=== PATIENT | male | born 1955 | race Caucasian/White ===

== ENCOUNTER → 2020-01-13 09:34 | Outpatient (BNVA) | payer MEDICAID, SELFPAY | PROVIDERS: PCP Nurse Practitioner Primary Care; Visit Provider Internal Medicine Gastroenterology | DX: K59.09 Other constipation (principal); K57.30 Diverticulosis of large intestine without perforation or abscess without bleeding; K74.60 Unspecified cirrhosis of liver; Z86.010 Personal history of colon polyps; Z98.890 Other specified postprocedural states | CPT/HCPCS: 99213 ==

== ENCOUNTER 2020-01-19 | Outpatient (REF) | payer MEDICAID, SELFPAY | END 2020-01-19 00:01 | disposition home or self-care (01) | LOC: HO.LAB | PROVIDERS: Visit Provider Internal Medicine | DX: Z13.89 Encounter for screening for other disorder (principal) | CPT/HCPCS: 83520; 84432; 84442; 84445; 86376; 86403; 86780; 86800; 86803; 87389 ==

== ENCOUNTER → 2020-02-01 08:20 | Outpatient (REF) | payer MEDICAID, SELFPAY ==
--- NOTE | 2020-02-01 07:30 | CA_ITS ---
Transthoracic Echocardiogram Patient (Last, First, Middle): Shaggy German M Gender: Male Date of : 1955 Age: 64 Procedure Date: 02/01/2020 Procedure Type: Transthoracic Echocardiogram Location: OP Height: 177.8 cm Weight: 74.84 kg BSA: 1.92 m2 Heart Rate: bpm BP: 128 / 78 mmHg Carbon Cutter: JUDD Referring MD: Waleska Baeza NP Telecom Engineer: Jorge Dumont MD Symptoms: R07.9 CHEST PAIN Study Quality: Good ECG Rhythm: Sinus Conclusions: - Essentially normal study with grade 1 diastolic dysfunction Findings Left Ventricle Normal left ventricular size, thickness, and systolic function. The visually estimated ejection fraction is between 60-65%. Spectral Doppler is indicative of an impaired relaxation filling pattern. E/E prime ratio is <8, consistent with normal filling pressures. Evidence suggests grade I (mild) diastolic dysfunction. Right Ventricle Normal right ventricular cavity size and systolic function. Atria Both atria are normal in size. There is no evidence of interatrial shunt. Aortic Valve Normal aortic valve structure and function. There is no aortic valve stenosis. There is no aortic valve regurgitation. Mitral Valve Normal mitral valve structure and function. There is trace mitral valve regurgitation. There is no mitral valve stenosis. Pulmonic Valve The pulmonic valve was not well visualized. Tricuspid Valve Likely normal tricuspid valve structure and function. There is trace tricuspid valve regurgitation. The right ventricular systolic pressure is normal. The right ventricular systolic pressure is 22 mmHg. Normal right atrial pressure. There is no evidence of pulmonary hypertension. Great Vessels All visible segments of the aorta are normal in size. The pulmonary artery was not well visualized. Venous The inferior vena cava is normal in size and collapses greater than 50% with inspiration. Pericardium/Pleural There is no evidence of pericardial effusion. Prior Study Comparison No prior study available for comparison. Measurements 2D Linear Measurements IVSd: 0.91 0.6-0.9/0.6-1.0 cm LVIDd: 4.89 3.9-5.3/4.2-5.9 cm LVIDd Index: 2.55 2.4-3.2/2.2-3.1 cm/m2 LVIDs: 2.63 2.0-3.6 cm LVPWd: 0.85 0.7-1.1 cm Ao Root: 3.30 2.1-3.5 cm LA Diam: 3.30 2.7-3.8/3.0-4.0 cm LAIDs Index: 1.72 1.5-2.3 cm/m2 LV Mass: 184.93 67-162/88-224 g LV Mass Index: 96.32 43-95/49-115 g/m2 LVOT Diam: 2.20 3.0+(-)1.3 cm Mitral Valve MV Pk E: 0.64 MV PK A: 0.84 MV Decel Time: 257.00 E/A: 0.80 E'Lateral: 11.70 E'Medial: 11.50 E/E' Med: 5.60 E/E' Lat: 5.50 PHT: 75.00 MVA PHT: 2.93 Decel Parke: 2.49 Aortic Valve AoV Pk Joseph: 1.49 AoV Mn Joseph: 0.97 AoV VTI: 0.34 AoV Pk Grad: 9.00 Aov Mn Grad: 5.00 ELISE Cont.VTI: 2.49 LVOT LVOT Pk Joseph: 1.08 LVOT Mn Joseph: 0.68 LVOT VTI: 0.22 LVOT Pk Grad: 5.00 LVOT Mn Grad: 2.00 LVOT Diam: 2.20 LVOT Area: 3.80 Diastolic Function MV Pk E: 0.64 MV Pk A: 0.84 E/A: 0.80 E'Medial: 11.50 E/E' Med: 5.60 E' Laterial: 11.70 E/E' Lat: 5.50 Tricuspid Valve TR Pk Joseph: 2.17 TR Pk Grad: 19.00 RA Press: 3.00 RVSP: 22.00 Great Vessels Aorta Ao Root-2D: 3.30 2.0-3.7 cm Ao Asc: 3.30 2.1-3.4 cm Pulmonary Valve PV Pk Joseph: 1.05 Peak PV Grad: 4.00 Updated in Other Vendor System with Status of Final Jorge Dumont MD electronically signed on 02/01/2020 2:46:04 PM with status of Final
--- NOTE | 2020-02-01 08:32 | CA_ITS ---
Acquisition Time: 2020-02-01 09:08:09 Total Exercise Time: 00:09:24 Test Indications: CP Medications: SEE CHART Protocol: CATHERINE Max HR: 146 BPM 93% of Pred: 156 BPM Max BP: 124/062 mmHG Max Work Load: 10.7 METS Exercise stress test using Catherine protocol. Total of 9 min 24 sec. METS 10.7. Tolerated well, denies any anginal sx. EKG without any arrhythmias during exercise or in recovery period. No ischemic changes. Normotensiver esponse to exercise. Test reviewed with Dr. Acosta Referred By: Nonstaff Physician Overread By: Marie Vitale
== END ==
LOC: HO.CARD 08:20
PROVIDERS: Visit Provider Nurse Practitioner Primary Care
DX: R07.9 Chest pain, unspecified (principal)
CPT/HCPCS: 93017; 93306

== ENCOUNTER → 2020-04-26 09:09 | Outpatient (BNVA) | payer MEDICAID, SELFPAY | PROVIDERS: Visit Provider Internal Medicine Gastroenterology ==

== ENCOUNTER 2020-05-08 08:22 | Outpatient (REF) | payer MEDICAID, SELFPAY ==
--- NOTE | 2020-05-08 08:21 | US_ITS ---
EXAMINATION: US ABDOMEN COMPLETE CLINICAL INFORMATION: Cirrhosis of liver. COMPARISON: CT abdomen pelvis 11/30/2019. Ultrasound limited abdomen same date. Ultrasound abdomen 04/02/2018. X-ray KUB 07/17/2017. X-ray abdomen .3 TECHNIQUE: Real-time imaging of the abdominal viscera. FINDINGS: PANCREAS: The head and the body of the pancreas is homogeneous in echotexture. The tail of pancreas obscured by overlying gas. ABDOMINAL AORTA: The proximal, mid, and distal segments are normal in caliber. INFERIOR VENA CAVA: Visualized portions are normal. LIVER: The liver is normal in size. The liver contour is normal. There is diffuse increased liver echogenicity. No focal hepatic lesion. There is no intrahepatic biliary duct dilatation seen. GALLBLADDER: Normal. The gallbladder is physiologically distended without evidence of stones, sludge, polyps, wall thickening or pericholecystic fluid. COMMON BILE DUCT: Normal in caliber measuring 0.4 cm in diameter. RIGHT KIDNEY: Normal. No hydronephrosis. No renal calculi or focal parenchymal lesions. The kidney measures 10.2 cm in maximum dimension. LEFT KIDNEY: Normal. No hydronephrosis. No renal calculi or focal parenchymal lesions. The kidney measures 10.5 cm in maximum dimension. SPLEEN: Normal. The spleen measures 9.1 cm in maximum dimension. FREE FLUID: None. US/US abdomen complete IMPRESSION: Diffuse increased liver echogenicity. No focal lesion seen. Rest of the abdominal ultrasound is unremarkable.
== END 2020-05-08 08:23 | disposition home or self-care (01) ==
LOC: HO.US 08:22
PROVIDERS: PCP Nurse Practitioner Primary Care; Visit Provider Internal Medicine Gastroenterology
DX: K74.60 Unspecified cirrhosis of liver (principal)
CPT/HCPCS: 76700

== ENCOUNTER → 2020-05-28 13:26 | Outpatient (BNVA) | payer MEDICAID, SELFPAY | PROVIDERS: PCP Nurse Practitioner Primary Care; Visit Provider Internal Medicine Gastroenterology ==

== ENCOUNTER → 2020-07-20 15:36 | Outpatient (BNVA) | payer MEDICAID, SELFPAY | PROVIDERS: PCP Nurse Practitioner Primary Care; Visit Provider Internal Medicine Gastroenterology ==

== ENCOUNTER 2020-08-14 10:46 | Day surgery (SDC) | payer OTHER, SELFPAY ==
[2020-07-31 10:18] VITALS: BMI 54.8
--- NOTE | 2020-08-13 10:00 | HO.ANESPROP2 ---
Documented by User: Lakeisha Jacksonney 08/21/20 13:30 HPI - Anesthesia Eval Consult details Narrative: 65yo M for Upper Endoscopy Suboxone daily PMFSH Active Problems Active Problems: All Active Problems (Updated 07/31/20 @ 10:16 by Katelyn Bejarano) Early satiety (Acute) Cirrhosis of liver without ascites (Acute) History of adenomatous polyp of colon (Acute) Chronic constipation (Acute) Past Medical History Medical History (Updated 08/14/20 @ 13:04 by Karmen Khalil RN) Anxiety Chronic constipation Chronic hepatitis C virus genotype 1a infection Cirrhosis of liver without ascites Combined drug dependence excluding opioids Depression History of adenomatous polyp of colon Seizures Family History Family History Father No problems noted. Mother No problems noted. Surgical History Surgical History (Updated 07/31/20 @ 10:16 by Katelyn Bejarano) History of colonoscopy History of hernia repair History of prostate surgery History of pterygium excision Hx of cystoscopy Hx of endoscopy Social History Social History (Updated 07/31/20 @ 10:17 by Katelyn Bejarano) Household Members: None Smoking Status: Current every day smoker Tobacco Type: Cigarette Cigarettes Per Day: 4 Substance Use Type: Former Substance User and Opiates Substance Use Type Other:: currently taking suboxone Advance Directives Information Provided: No Current occupational status: unemployed 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 Meds Allergies Allergy/AdvReac Type Severity Reaction Status Date / Time No Known Allergies Allergy Verified 07/20/20 15:36 Home Medications Medication Instructions Recorded Confirmed Last Taken Type buprenorphine 8 mg-naloxone 2 mg 1 film BUCCAL DAILY 01/12/20 07/31/20 08/14/20 History sublingual film ergocalciferol (vitamin D2) 62.5 62.5 mcg PO DAILY 01/12/20 07/31/20 Unknown History mcg (2,500 unit) capsule sennosides 8.6 mg capsule 8.6 mg PO BEDTIME 01/12/20 07/31/20 Unknown History sertraline 50 mg tablet 50 mg PO DAILY 01/12/20 07/31/20 Unknown History Exam Exam Date and Time: August 13, 2020 1000 Height,Weight and Vital Signs: Height 5 ft 7 in Weight 159 kg Narrative Narrative: 01/2020 Echo and Exercise stress wnl Assessment and Plan Assessment Anesthesia Assessment: Chart Reviewed Documented by User: My Meza 08/22/20 14:12 PMFSH Past Medical History Medical History (Updated 08/14/20 @ 13:04 by Karmen Khalil RN) Anxiety Chronic constipation Chronic hepatitis C virus genotype 1a infection Cirrhosis of liver without ascites Combined drug dependence excluding opioids Depression History of adenomatous polyp of colon Seizures Family History Family History Father No problems noted. Mother No problems noted. Surgical History Surgical History (Updated 07/31/20 @ 10:16 by Katelyn Bejarano) History of colonoscopy History of hernia repair History of prostate surgery History of pterygium excision Hx of cystoscopy Hx of endoscopy Social History Social History (Updated 07/31/20 @ 10:17 by Katelyn Bejarano) Household Members: None Smoking Status: Current every day smoker Tobacco Type: Cigarette Cigarettes Per Day: 4 Substance Use Type: Former Substance User and Opiates Substance Use Type Other:: currently taking suboxone Advance Directives Information Provided: No Current occupational status: unemployed 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 Meds Allergies Allergy/AdvReac Type Severity Reaction Status Date / Time No Known Allergies Allergy Verified 07/20/20 15:36 Home Medications Medication Instructions Recorded Confirmed Last Taken Type buprenorphine 8 mg-naloxone 2 mg 1 film BUCCAL DAILY 01/12/20 07/31/20 08/14/20 History sublingual film ergocalciferol (vitamin D2) 62.5 62.5 mcg PO DAILY 01/12/20 07/31/20 Unknown History mcg (2,500 unit) capsule sennosides 8.6 mg capsule 8.6 mg PO BEDTIME 01/12/20 07/31/20 Unknown History sertraline 50 mg tablet 50 mg PO DAILY 01/12/20 07/31/20 Unknown History Exam Height,Weight and Vital Signs: Vital Signs Temp Pulse Resp BP Pulse Ox 97.5 F 67 17 122/78 97 08/14/20 11:18 08/14/20 11:18 08/14/20 11:18 08/14/20 11:18 08/14/20 11:18 Airway Mallampati Class: II TM Dist: >3cm Heart: RRR Lungs: CTAB Assessment and Plan Assessment Anesthesia Assessment: Anesthesia Plan Discussed and Chart Reviewed Final Anesthetic Review NPO: Yes ASA Class: III Final Preanesthetic Review: No Changes in Pt Med Stat, Meds/Allgs Chart Reviewed, Consent Obtained/Reviewed and Anes Risks/Benef Reviewed Patient Risk: Intermediate Procedure Risk: Low Assessment/Block/Sedation in SS: Assess/Block/Sedation-SS Anesthetic Plan Anesthetic Plan: MAC: Disposition: Standard PACU
[2020-08-14 11:17] VITALS: BMI 25.8
[2020-08-14 11:18] VITALS: BP 122/78; PULSE 67; RESP 17; TEMP 36.4; O2SAT 97
[2020-08-14] MEDS: Lactated Ringers 1,000 ML 100 ML IVCONT (11:30)
--- NOTE | 2020-08-14 12:07 | W.PM.OPN ---
Operative Note Operative Note Date of Service: 08/14/20 Narrative: Pre-op diagnosis: Post prandial abdominal pain and fullness Post-op diagnosis: other (Esophagitis, Gastritis) Procedure: FLEXIBLE TRANSORAL UPPER GASTROINTESTINAL ENDOSCOPY WITH BIOPSIES Consent: Indications for the procedure and potential complications of bleeding, perforation, reaction to medications and missed diagnosis were discussed with the patient and informed consent was obtained. Instrument: Olympus GIF H 190 mid size upper endoscope Monitoring: Vital signs and clinical assessment, continuous EKG monitoring, Pulse oximetry, Carbon Dioxide monitoring and blood pressure monitoring were done throughout the procedure. Procedure: The patient was placed in the left lateral decubitis position and pre-procedure medications were administered and a bite block was placed. The endoscope was inserted into the mouth and advanced under direct vision to the third part of duodenum. A careful inspection was made as the upper endoscope was withdrawn including a retroflexed examination of the proximal stomach; Findings and interventions are described below. Findings: Larynx: Normal Esophagus: GE junction at 40 cms. Focal esophagitis at GE junction with a single 0.5 cms erosion. No Telles's. Stomach: Moderate diffuse gastric erythema. Biopsies were obtained from the gastric body and antrum. Grade 2 flap valve on retroflexed examination of the cardia. Duodenum: Normal bulb and descending duodenum Intervention: Biopsies as noted above Impression and Post Procedure Diagnosis: Endoscopy Findings: ESOPHAGUS: Focal esophagitis STOMACH: Diffuse gastritis Plan: Await pathology results. Pt was advised to take sucralfate 1 gram twice daily in addition to the PPI. Patient has an appointment on 11/15/20 in the [facility] with Essie Larry M.D.-. Above findings were reviewed with the patient and a handout on Gastritis was given in the discharge area Surgeon: Essie Larry MD Anesthesia: MAC (Kristin May CRNA) Was an After School Counselor used for this Procedure?: No After School Counselor: Panchito Choudhary Estimated blood loss (mL): 0 Pathology: other (A- GASTRIC ANTRUM BXS R/O H. PYLORI B- GASTRIC BODY BXS) Condition: stable Disposition: PACU
--- NOTE | 2020-08-14 12:07 | MHC.SHP ---
Pre-Procedural Eval Section A The patient is an INPATIENT: No Changes since office visit: Yes Patient answered all questions; No Cold of Flu in the past 2 weeks, No New Medical Problems and No Changes in Medication The History & Physical has been completed within 30 days and I have reviewed it.: Yes Section B Chief Complaint: Cirrhosis of liver without ascites Allergies: Allergies Allergy/AdvReac Type Severity Reaction Status Date / Time No Known Allergies Allergy Verified 07/20/20 15:36 Review of Systems Sugical H&P ROS: Negative: Constitution, Cardiovascular and Respiratory and Yes, Specify: Gastrointestinal (post prandial abd pain) Exam Surgical H&P Exam: Normal: Heart, Normal: Lungs, Normal: Extremities and Normal: Abdomen Plan Diagnosis/Plan: Unchanged I have reviewed the history and physical and performed a pertinent physical examination on my patient. No changes have occurred unless specified.
[2020-08-14 13:30] VITALS: BP 84/50; PULSE 58; RESP 16; TEMP 36.6; O2SAT 97
[2020-08-14 13:41] VITALS: BP 84/50; PULSE 58; RESP 16; TEMP 36.6; O2SAT 97
[2020-08-14 13:45] VITALS: BP 97/58; PULSE 54; RESP 16; TEMP 36.6; O2SAT 100
[2020-08-14 14:10] VITALS: BP 107/63; PULSE 59; RESP 16; O2SAT 98
== END 2020-08-14 14:33 | disposition home or self-care (01) ==
PROVIDERS: PCP Nurse Practitioner Primary Care; Visit Provider Internal Medicine Gastroenterology
PROC: 0DJ08ZZ Inspection of Upper Intestinal Tract, Via Natural or Artificial Opening Endoscopic (ICD-10-PCS; CPT 43235; principal; 2020-08-14 12:00)
DX: K74.60 Unspecified cirrhosis of liver (principal); R10.819 Abdominal tenderness, unspecified site; K29.50 Unspecified chronic gastritis without bleeding; K20.80 Other esophagitis without bleeding; B18.2 Chronic viral hepatitis C; F11.20 Opioid dependence, uncomplicated; F17.210 Nicotine dependence, cigarettes, uncomplicated; Z79.899 Other long term (current) drug therapy
CPT/HCPCS: 43239; 88305; 88342; J3010

== ENCOUNTER 2020-09-19 13:11 | Outpatient (REF) | payer OTHER, SELFPAY ==
--- NOTE | ~2020-09-19 | MM_ITS ---
EXAMINATION: MM DIAGNOSTIC DIGITAL BREAST TOMOSYNTHESIS, BILATERAL US DIAGNOSTIC ULTRASOUND BREAST, LEFT CLINICAL INFORMATION: 65-year-old male with 10 year history stable palpable nodule inferior to left breast. Patient also notes tenderness/pain in this area. No prior breast imaging. No known family history breast cancer. COMPARISON: CT abdomen 11/30/2019 TECHNIQUE: Digital breast tomosynthesis is performed in both the craniocaudal and mediolateral oblique views along with computer-aided detection (CAD). Synthesized 2D images are generated from the tomosynthesis. Ultrasound left anterior chest wall is targeted to the area of clinical concern just inferior to the left breast. Patient is able to point to area of concern at time of imaging. Grayscale imaging and color Doppler are performed without and with harmonics. FINDINGS: The breasts are almost entirely fatty (ACR BI-RADS breast composition Category a). There are no significant masses, abnormal calcifications, or other abnormalities. There is no skin thickening or coarsening of the stromal markings. There are scattered benign round dermal calcifications. Low right axillary tail node is noted on MLO view is an incidental finding. The area of palpable concern is beyond the mammographic imaging field of view. Ultrasound targeted to the area of clinical concern just inferior to the breast demonstrates no cystic or solid mass or architectural abnormality. There is no intradermal lesion or skin thickening or edema tracking in soft tissue planes. No hyperemia on color Doppler. Results are discussed with the patient at time of visit using an diplomatic interpreter. MM/MM tomosynthesis diagnostic BI IMPRESSION: No mammographic evidence of malignancy. Unremarkable targeted ultrasound left chest. ASSESSMENT: BI-RADS 1: Negative RECOMMENDATION: Patient should be managed based on the clinical impression. If clinically indicated, further evaluation may be considered with surgical consult. Decision to proceed with biopsy should be based on clinical grounds and degree of clinical concern.
== END 2020-09-19 13:12 | disposition home or self-care (01) ==
LOC: HO.MAMMO 13:11
PROVIDERS: Visit Provider Emergency Medicine
DX: N64.4 Mastodynia (principal); N63.20 Unspecified lump in the left breast, unspecified quadrant
CPT/HCPCS: 76642; 77062; 77066

== ENCOUNTER → 2020-11-15 13:32 | Outpatient (BNVA) | payer OTHER, SELFPAY | PROVIDERS: PCP Nurse Practitioner Primary Care; Visit Provider Internal Medicine Gastroenterology | CPT/HCPCS: Q3014 ==

== ENCOUNTER 2020-11-21 08:35 | Outpatient (REF) | payer OTHER, SELFPAY ==
--- NOTE | ~2020-11-21 | XR_ITS ---
EXAMINATION: XR RIBS, BILATERAL CLINICAL INFORMATION: Thoracic spine pain. Pleurodynia. COMPARISON: Most recent chest radiograph dated 08/30/2019. TECHNIQUE: PA view of the chest as well as 3 views of the right and left ribs. FINDINGS: Lungs are clear. No consolidation, pneumothorax, or pleural effusion. The cardiomediastinal silhouette and pulmonary vasculature are normal. Possible nondisplaced fracture of the lateral aspect of the left 9th rib. No lytic or blastic osseous lesion. No abnormal soft tissue calcification. XR/XR ribs BI 3V IMPRESSION: Possible nondisplaced fracture through the lateral left 9th rib. Correlate for focal tenderness.
--- NOTE | ~2020-11-21 | XR_ITS ---
EXAMINATION: XR THORACOLUMBAR SPINE CLINICAL INFORMATION: Thoracic spine pain. COMPARISON: None. TECHNIQUE: AP, lateral, and swimmer's views of the thoracic spine. FINDINGS: Normal vertebral body alignment. The thoracic kyphosis is maintained. No acute fracture or subluxation. No loss of vertebral body or intervertebral disc height. Small multilevel anterior endplate osteophytes. No lytic or blastic osseous lesion. The visualized lungs are clear. XR/XR thoracic spine 2V IMPRESSION: Mild multilevel degenerative disc disease.
[2020-11-21 09:20] LABS: MANUAL DIFF FLAG NO
[2020-11-21 09:25] LABS: Basophils Absolute Auto 0.1 X10*3/uL (0.0-0.2); Basophils Percent Auto 1.1 % (0-2); Eosinophils Absolute Auto 0.2 X10*3/uL (0.0-0.4); Eosinophils Percent Auto 3.7 % (0-4); Hematocrit 43.2 % (42-52); Hemoglobin 14.5 g/dl (14.0-18.0); Imm Gran Abs Auto 0.01 X10*3/uL (0.00-0.03); Imm Gran Pct Auto 0.2 % (0.0-0.4); Lymphocytes Percent Auto 48.7 % (20-40); Mean Corpuscular HGB Conc 33.6 g/dl (31.0-36.0); Mean Corpuscular Hemoglobin 29.7 pg (27.0-33.0); Mean Corpuscular Volume 88.3 fL (80-98); Mean Platelet Volume 10.8 fL (9.4-12.4); Monocytes Absolute Auto 0.5 X10*3/uL (0.1-1.2); Monocytes Percent Auto 8.2 % (2-11); Neutrophils Absolute Auto 2.4 X10*3/uL (2.0-8.3); Neutrophils Percent Auto 38.1 % (45-73); Platelet Count 197 X10*3/uL (160-400); Red Blood Count 4.89 X10*6/uL (4.60-5.80); Red Cell Distribution Width 12.3 % (11.0-16.0); White Blood Count 6.2 X10*3/uL (4.8-10.8)
[2020-11-21 10:07] LABS: Prothrombin Time 11.1 SEC (9.9-13.0)
[2020-11-21 10:11] LABS: Alanine Aminotransferase 15 U/L (0-40); Albumin Level 4.4 g/dL (3.5-5.0); Alkaline Phosphatase 72 U/L (39-117); Anion Gap 15 (12-20); Aspartate Amino Transferase 18 U/L (5-37); Bilirubin Total 1.9 mg/dL (0.0-1.0); Blood Urea Nitrogen 11 mg/dL (9-16); Calcium 9.4 mg/dL (8.4-10.2); Carbon Dioxide 26 mmol/L (22-29); Chloride 105 mmol/L (96-108); Estimated Glomerular Filt Rate > 60; Glucose Random 119 mg/dL (60-115); Lipase 40 U/L (8-78); Potassium 4.8 mmol/L (3.3-5.1); Sodium 141 mmol/L (135-145); Total Protein 7.7 g/dL (6.5-8.0)
== END 2020-11-21 08:36 | disposition home or self-care (01) ==
LOC: HO.XRAY 08:35
PROVIDERS: Absent Provider Internal Medicine; PCP Nurse Practitioner Primary Care; Visit Provider Internal Medicine Gastroenterology
DX: M54.6 Pain in thoracic spine (principal); R07.81 Pleurodynia; K74.60 Unspecified cirrhosis of liver
CPT/HCPCS: 36415; 71110; 72070; 80053; 83690; 85025; 85610

== ENCOUNTER → 2020-12-17 13:51 | Outpatient (BNVA) | payer MEDICARE, SELFPAY | PROVIDERS: PCP Nurse Practitioner Primary Care; Visit Provider Internal Medicine | DX: M54.6 Pain in thoracic spine (principal); R07.81 Pleurodynia; F41.8 Other specified anxiety disorders; F11.20 Opioid dependence, uncomplicated; Z86.010 Personal history of colon polyps; Z79.899 Other long term (current) drug therapy | CPT/HCPCS: 99202 ==

== ENCOUNTER 2020-12-20 14:37 | Outpatient (REF) | payer MEDICARE, SELFPAY ==
--- NOTE | ~2020-12-20 | CT_ITS ---
EXAMINATION: CT ABDOMEN WITHOUT AND WITH CONTRAST CLINICAL INFORMATION: Cirrhosis of liver. COMPARISON: CT abdomen and pelvis 11/30/2019. TECHNIQUE: Contiguous axial thin section helical images of the abdomen were performed before and after the administration of oral contrast and 100 mL of Omnipaque 350 intravenous contrast. The data set was reformatted in the coronal and sagittal planes and reviewed on an independent workstation. This CT examination was performed using dose optimization techniques as appropriate, variously including the following: *Automated exposure control *Adjustment of mA and/or kV according to patient size (this includes techniques or standardized protocols for targeted exams where dose is matched to indication/reason for exam; i.e. extremities or head) *Use of iterative reconstruction technique DLP: 946 mGy-cm. FINDINGS: LUNG BASES: There is lingular and right middle lobe atelectatic changes. Heart size is normal. LIVER, GALLBLADDER, AND BILIARY TREE: The liver is homogeneous in density, normal size and contour. No focal lesion or intrahepatic ductal dilatation seen. PANCREAS: The pancreas is homogeneous in density, normal size. Pancreatic duct is visualized measuring 2 mm. No focal lesion seen. SPLEEN: The spleen is unremarkable. ADRENAL GLANDS AND KIDNEYS: Both adrenal glands are symmetrical and normal. Both kidneys are normal size, shape and position. No enhancing renal mass, cyst, radiopaque calculi or hydronephrosis seen. BOWEL LOOPS: There is scattered stool and gas seen throughout the colon. The small bowel loops are normal caliber. LYMPH NODES: Normal. VASCULAR: Unremarkable. BONES: No lytic or sclerotic process seen. CT/CT abdomen wo/w con IMPRESSION: Unremarkable liver with and without contrast . Mild constipation.
[2020-12-20] MEDS: iohexoL 350 MG/ML 100 ML INFUS..BTL IV (16:09)
== END 2020-12-20 14:38 | disposition home or self-care (01) ==
LOC: HO.CT 14:37
PROVIDERS: Visit Provider Internal Medicine Gastroenterology
DX: K74.60 Unspecified cirrhosis of liver (principal)
CPT/HCPCS: 74170; Q9967

== ENCOUNTER 2020-12-26 15:00 | Outpatient (RCR) | payer MEDICARE, SELFPAY | END 2021-01-09 16:51 | disposition home or self-care (01) | LOC: HO.PT 15:00 | PROVIDERS: PCP Nurse Practitioner Primary Care; Visit Provider Internal Medicine | DX: M54.6 Pain in thoracic spine (principal); R07.81 Pleurodynia | CPT/HCPCS: 97110; 97162 ==

== ENCOUNTER 2021-01-02 06:04 | Outpatient (REF) | payer MEDICARE, SELFPAY | END 2021-01-02 06:05 | disposition home or self-care (01) | LOC: HO.RADIR 06:04 | PROVIDERS: Visit Provider Internal Medicine | DX: Z13.89 Encounter for screening for other disorder (principal) ==

== ENCOUNTER → 2021-01-07 10:45 | Outpatient (BNVA) | payer MEDICARE, SELFPAY | PROVIDERS: PCP Nurse Practitioner Primary Care; Referring Provider Nurse Practitioner Primary Care; Visit Provider Internal Medicine Gastroenterology | DX: K74.60 Unspecified cirrhosis of liver (principal); K59.09 Other constipation; R68.81 Early satiety; Z86.010 Personal history of colon polyps | CPT/HCPCS: 99212 ==

== ENCOUNTER → 2021-01-31 10:48 | Outpatient (REF) | payer MEDICARE, SELFPAY ==
--- NOTE | ~2021-01-31 | NM_ITS ---
EXAMINATION: NM BONE SCAN OF THE WHOLE BODY CLINICAL INFORMATION: Low back pain. COMPARISON: No previous bone scan is available for comparison. Radiographs of the thoracic spine and bilateral ribs dated 11/21/2020 are available for comparison. The diagnostic CT scan of the abdomen and pelvis, dated 12/20/2020, is available for comparison. TECHNIQUE: Multiple gamma scintillation camera images of the whole body were performed 3 hours following the intravenous administration of 30 mCi Tc-99m MDP. FINDINGS: In the head, no significant abnormalities are present. In the thoracic cage and upper extremities, there is minimally increased activity in the sternoclavicular joints bilaterally and at the costochondral junction of the left first rib. In the spine, no significant abnormalities are present. In the pelvis, no significant abnormalities are present. In the lower extremities, there is a small faint focus of increased activity in the left greater femoral trochanter, likely due to an enthesopathy. There is mildly to moderately increased activity diffusely in the patellar compartments of both knees and in additional very faint foci in the medial compartments bilaterally and the lateral compartment of the right knee. There is mildly increased activity in the right first metatarsophalangeal joint region and at the insertions of the Achilles tendons bilaterally, the latter likely due to a mild Achilles enthesopathy. No other definite bony abnormalities are noted. The urinary bladder and faint visualization of both kidneys are noted. NM/NM bone scan whole body IMPRESSION: A few mild nonspecific abnormalities are noted as described above and these are all likely arthritic or traumatic in etiology. None of these abnormalities is strongly suspicious for metastatic disease.
== END ==
LOC: HO.NUCMED 10:48
PROVIDERS: PCP Nurse Practitioner Primary Care; Visit Provider Internal Medicine
DX: M54.50 Low back pain, unspecified (principal)
CPT/HCPCS: 78306; A9503

== ENCOUNTER → 2021-04-25 12:30 | Outpatient (BNVA) | payer MEDICARE, SELFPAY | PROVIDERS: PCP Nurse Practitioner Primary Care; Referring Provider Nurse Practitioner Primary Care; Visit Provider Internal Medicine Gastroenterology | DX: Z13.89 Encounter for screening for other disorder (principal) | CPT/HCPCS: 99212 ==

== ENCOUNTER → 2021-06-14 07:52 | Outpatient (REF) | payer MEDICARE, SELFPAY ==
--- NOTE | ~2021-06-14 | NM_ITS ---
EXAMINATION: RADIONUCLIDE SOLID FOOD GASTRIC EMPTYING 4-HOUR STUDY CLINICAL INFORMATION: Early satiety. COMPARISON: No previous gastric emptying study is available for comparison. TECHNIQUE: A standard meal consisting of 4 oz of Egg Beaters brand equivalent tagged with 120 microcuries Tc-99m Sulfur Colloid, 8 oz water and 2 slices of toast with jelly was administered orally to the patient. Images were obtained using a dual head gamma camera in the anterior and posterior projections over of the stomach immediately post ingestion and at hourly intervals up to 4 hours post ingestion. The anterior and posterior counts at each time interval were averaged using the geometric mean and expressed as percentage of the immediate post ingestion counts. FINDINGS: There is good visualization of activity in the stomach immediately post ingestion. As the study progresses, there is good clearance of activity from the stomach and visualization of progressively increasing small bowel activity. By the end of the study, there is almost no retention noted in the stomach. Retention in the stomach at each time interval was: 1 hour 50% (normal 37%-90%) 2 hours 16% (normal 30%-60%) 3 hours 6% 4 hours 3% (normal 0%-10%) NM/NM gastric emptying study IMPRESSION: Normal 4-hour solid food gastric emptying study.
--- NOTE | ~2021-06-14 | XR_ITS ---
EXAMINATION: XR FOOT, RIGHT CLINICAL INFORMATION: Pain COMPARISON: Previous right foot x-ray July 2017 TECHNIQUE: AP, lateral, and oblique views of the right foot. FINDINGS: Bone alignment is normal. No fracture or dislocation is seen. There is arthritis at the first MTP joint with joint space narrowing and osteophyte formation. There are calcaneal spurs. Soft tissues are otherwise unremarkable. 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 Calcaneal spurs.
== END ==
LOC: HO.NUCMED 07:52
PROVIDERS: PCP Nurse Practitioner Primary Care; Visit Provider Internal Medicine Gastroenterology
DX: R68.81 Early satiety (principal); R10.9 Unspecified abdominal pain; M79.674 Pain in right toe(s)
CPT/HCPCS: 73630; 78264; A9541

== ENCOUNTER → 2021-12-30 13:37 | Outpatient (BNVA) | payer MEDICARE, SELFPAY | PROVIDERS: PCP Nurse Practitioner Primary Care; Visit Provider Nurse Practitioner Family | DX: R07.89 Other chest pain (principal); M54.6 Pain in thoracic spine; R07.81 Pleurodynia | CPT/HCPCS: 99212 ==

== ENCOUNTER 2022-05-22 08:54 | Outpatient (REF) | payer OTHER, SELFPAY ==
[2022-05-22 10:19] LABS: MANUAL DIFF FLAG NO
[2022-05-22 10:52] LABS: Basophils Absolute Auto 0.1 X10*3/uL (0.0-0.2); Basophils Percent Auto 2.2 % (0-2); Eosinophils Absolute Auto 0.2 X10*3/uL (0.0-0.4); Eosinophils Percent Auto 2.9 % (0-4); Hematocrit 47.2 % (42.0-52.0); Hemoglobin 15.4 g/dl (14.0-18.0); Lymphocytes Absolute Auto 2.5 X10*3/uL (1.2-4.9); Lymphocytes Percent Auto 49.1 % (20-40); Mean Corpuscular HGB Conc 32.6 g/dl (31.0-36.0); Mean Corpuscular Hemoglobin 29.5 pg (27.0-33.0); Mean Corpuscular Volume 90.4 fL (80.0-98.0); Mean Platelet Volume 11.2 fL (9.4-12.4); Monocytes Absolute Auto 0.4 X10*3/uL (0.1-1.2); Monocytes Percent Auto 8.3 % (2-11); Neutrophils Absolute Auto 1.9 x10*3/uL (2.0-8.3); Neutrophils Percent Auto 37.5 % (45-73); Platelet Count 199 X10*3/uL (160-400); Red Blood Count 5.22 X10*6/uL (4.60-5.80); Red Cell Distribution Width 12.4 % (11.0-16.0); White Blood Count 5.1 X10*3/uL (4.8-10.8)
[2022-05-22 10:54] LABS: Prothrombin Time 11.9 SEC (10.0-13.1)
[2022-05-22 11:32] LABS: Alanine Aminotransferase 11 U/L (0-40); Albumin Level 4.3 g/dL (3.5-5.0); Alkaline Phosphatase 86 U/L (39-117); Anion Gap 12 (12-20); Aspartate Amino Transferase 17 U/L (5-37); Bilirubin Total 2.3 mg/dL (0.0-1.0); Blood Urea Nitrogen 10 mg/dL (9-16); Calcium 9.4 mg/dL (8.4-10.2); Carbon Dioxide 27 mmol/L (22-29); Chloride 105 mmol/L (96-108); Estimated Glomerular Filt Rate > 60; Glucose Random 92 mg/dL (60-115); Potassium 4.4 mmol/L (3.3-5.1); Sodium 140 mmol/L (135-145); Total Protein 7.2 g/dL (6.5-8.0)
[2022-05-22 11:38] LABS: Vitamin D 25-OH Total 22.1 ng/mL (>30)
== END 2022-05-22 08:55 | disposition home or self-care (01) ==
LOC: HO.LAB 08:54
PROVIDERS: PCP Nurse Practitioner Primary Care; Visit Provider Internal Medicine Gastroenterology
DX: R10.9 Unspecified abdominal pain (principal); K74.60 Unspecified cirrhosis of liver; K59.09 Other constipation; Z86.010 Personal history of colon polyps
CPT/HCPCS: 36415; 80053; 82306; 85025; 85610; 99212

== ENCOUNTER 2022-06-25 13:09 | Outpatient (REF) | payer OTHER, SELFPAY ==
--- NOTE | ~2022-06-25 | US_ITS ---
EXAMINATION: US ABDOMEN LIMITED CLINICAL INFORMATION: Unspecified cirrhosis of liver. COMPARISON: CT abdomen without and with contrast 12/20/2020. Ultrasound abdomen complete 05/08/2020. Ultrasound abdomen limited 11/30/2019. X-ray abdomen 07/17/2017 and 12/26/2012. TECHNIQUE: Real-time imaging of the right upper quadrant abdominal viscera. FINDINGS: PANCREAS: Visualized portions of pancreas are normal in appearance. LIVER: The liver is normal in size. The liver contour is normal. Liver echogenicity is increased diffusely. No focal hepatic lesion. There is no intrahepatic biliary duct dilatation seen. GALLBLADDER: Normal. The gallbladder is physiologically distended without evidence of stones, sludge, polyps, wall thickening or pericholecystic fluid. COMMON BILE DUCT: Normal in caliber measuring 0.4 cm in diameter. Negative sonographic Townsend's sign. RIGHT KIDNEY: Normal. No hydronephrosis. No renal calculi or focal parenchymal lesions. The kidney measures 10.7 cm in maximum dimension. FREE FLUID: None. US/US abdomen limited IMPRESSION: Diffusely increased liver echogenicity. This is a nonspecific finding but most suggestive of hepatic steatosis. Correlation with liver enzymes recommended.
== END 2022-06-25 13:10 | disposition home or self-care (01) ==
LOC: HO.US 13:09
PROVIDERS: Visit Provider Internal Medicine Gastroenterology
DX: K74.60 Unspecified cirrhosis of liver (principal)
CPT/HCPCS: 76705

== ENCOUNTER → 2022-08-12 08:38 | Outpatient (BNVA) | payer OTHER, SELFPAY | PROVIDERS: PCP Nurse Practitioner Primary Care; Visit Provider Urology | DX: N40.1 Benign prostatic hyperplasia with lower urinary tract symptoms (principal); N13.8 Other obstructive and reflux uropathy; R39.12 Poor urinary stream | CPT/HCPCS: 99202 ==

== ENCOUNTER 2022-10-11 10:31 | Outpatient (REF) | payer OTHER, SELFPAY | END 2022-10-11 10:32 | disposition home or self-care (01) | LOC: HO.LAB 10:31 | PROVIDERS: Visit Provider Urology | DX: Z12.5 Encounter for screening for malignant neoplasm of prostate (principal); N13.8 Other obstructive and reflux uropathy; N40.1 Benign prostatic hyperplasia with lower urinary tract symptoms | CPT/HCPCS: 36415; 84153 ==

== ENCOUNTER 2022-10-14 14:13 | Outpatient (AMB) | payer OTHER, SELFPAY ==
--- NOTE | 2022-10-14 14:20 | A.OFFVIS_ITS ---
Intake Intake Visit Reasons: PVR/PSA(set) Intake Note: Patient is present for Follow Up PVR/PSA Urology Med: Finasteride,Tamsulosin, Terazosin Antibiotic Allergy:None Blood Thinner: None PVR: 0ml Allergies No Known Allergies Allergy (Verified 10/14/22 14:24) Medication List - Last Reconciled 10/14/22 by Rodney Marrufo MD bisacodyl (Dulcolax (bisacodyl)) 10 mg (2 x 5 mg) PO ONCE 3 days buprenorphine-naloxone 8-2 mg (Suboxone) 1 film buccal DAILY ergocalciferol (vitamin D2) 1,250 mcg PO QAM finasteride 5 mg PO DAILY 90 days gabapentin 600 mg PO TID ketoconazole 2% topical omeprazole 20 mg PO BID 30 days polyethylene glycol 3350 (Miralax) 17 grams PO DAILY 30 days polyethylene glycol 3350 (Miralax) 17 grams PO DAILY 1 day quetiapine 50 mg PO BEDTIME sertraline 50 mg PO DAILY terazosin 5 mg PO BEDTIME 90 days HPI HPI Comments History of Present Illness Details Shaggy is a pleasant male. He is a patient of Dr. Baeza. He is seen for the following urologic conditions - lower urinary tract symptoms Cymraes translation provided in office by qualified medical assisting instructor Follow-up for medication trial PVR 0 cc Good response combination therapy Continue 6 month review Lower urinary tract symptoms Initial symptom presentation with pelvic pressure in the morning, nocturia x2, weakness of stream Current therapy combination finasteride and terazosin 5 mg Prior therapy tamsulosin LUIS CARLOS 2+ prostate soft approximately 60 g PSA 10/26 3.0 PFSH Medical History Anxiety Chronic constipation Chronic hepatitis C virus genotype 1a infection Cirrhosis of liver without ascites Combined drug dependence excluding opioids Depression History of adenomatous polyp of colon Rib pain on left side Seizures Surgical History History of colonoscopy History of hernia repair History of prostate surgery History of pterygium excision Hx of cystoscopy Hx of endoscopy Family History Father No problems noted. Mother No problems noted. 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 Review of Systems Const Denies chills and Denies fever(s) Card Reports no additional complaints and Denies syncope Resp Denies cough GI Denies abdominal pain and Denies heartburn Reports as per HPI and Denies change in libido Neuro Denies syncope Psych Denies change in libido Endo Denies change in libido Physical Exam Const General: cooperative, healthy appearing, comfortable and no acute distress Orientation/consciousness: patient oriented x3 HEENT Face and sinus: Yes normal facial exam Mouth: moist mucous membranes Neck Neck: Yes normal visual inspection, Yes full ROM and Yes trachea midline Chest Chest palpation & inspection: normal inspection of the chest Resp Effort & Inspection: normal respiratory effort, able to speak in complete sen tences and no respiratory distress GI Inspection: Yes normal to inspection Back/Spine/Pelvis Cervical Spine: normal cervical lordosis Thoracic/Lumbar Spine: thoracic and lumbar spine normal to inspection Skin General skin exam: no rashes or lesions noted Neuro General: patient oriented x3, gait normal, tone normal and moves all extremities Extrem General: Yes normal to inspection and Yes capillary refill normal Office Procedures Post Void Residual Post Residual Void Post Void Residual (PVR): 0 35501-Cxlo Void Residual by ultrasound Results AMB Urinalysis, Automated UA Leukoctes 0 Dipti/uL Last Edit by SANDY Palm on 10/14/22 14:38 UA Nitrite Negative Last Edit by SANDY Palm on 10/14/22 14:38 UA Urobilinogen 0.2 mg/dL Last Edit by SANDY Palm on 10/14/22 14:3 8 UA Protein 30 mg/dL Last Edit by SANDY Palm on 10/14/22 14:38 UA pH 5.5 Last Edit by SANDY Palm on 10/14/22 14:38 UA Blood 0 Bethel/uL Last Edit by SANDY Palm on 10/14/22 14:38 UA Specific Mitchell 1.030 Last Edit by SANDY Palm on 10/14/22 14: 38 UA Ketone Negative Last Edit by SANDY Palm on 10/14/22 14:38 UA Bilirubin 0 mg/dL Last Edit by SANDY Palm on 10/14/22 14:38 UA Glucose 0 mg/dL Last Edit by SANDY Palm on 10/14/22 14:38 Results Reviewed Results Reviewed: Laboratory Last Values Urine pH (Auto) 5.5 10/14/22 14:25 Specific Mitchell (Auto) 1.030 10/14/22 14:25 Urine Protein (Auto) 30 mg/dL 10/14/22 14:25 Glucose (UA)(Auto) 0 mg/dL 10/14/22 14:25 Urine Ketones (Auto) Negative 10/14/22 14:25 Urine Blood (Auto) 0 Bethel/uL 10/14/22 14:25 Urine Nitrite (Auto) Negative 10/14/22 14:25 Urine Bilirubin (Auto) 0 mg/dL 10/14/22 14:25 Urine Urobilinogen (Auto) 0.2 mg/dL 10/14/22 14:25 Leukocyte Esterase (Auto) 0 Dipti/uL 10/14/22 14:25 Assessment & Plan Assessment & Plan (1) Weak urinary stream: Code(s): R39.12 - Poor urinary stream (2) BPH w urinary obs/LUTS: Code(s): N40.1 - Benign prostatic hyperplasia with lower urinary tract symptoms; N13.8 - Other obstructive and reflux uropathy Plan 6 month follow-up Orders: Orders AMB Urinalysis Automated Today Z13.9 - Encounter for screening, unspecified AMB Post Void Residual by ultrasound Today N13.8 - Other obstructive and reflux uropathy, N40.1 - Benign prostatic hyperplasia with lower urinary tract symptoms Patient Instructions: Imaging studies, laboratory and physical exam results were discussed and reviewed in detail. No major barriers to patient understanding were identified. An opportunity to ask questions regarding the treatment plan was provided. All questions were answered. The patient expressed understanding and agreement with the above treatment plan. The patient is aware they should contact our office by phone for worsening of their current condition or the appearance of new urologic symptoms. Compliance is encouraged with any medications and followup testing that is ordered. It is a privilege to participate in the urologic care of your patient. If you have any questions or concerns regarding treatment for the above conditions, or other urologic issues, please do not hesitate to contact me. The office telephone contact is [phone]. This note is constructed using voice recognition software. While every effort has been made to ensure accuracy food preparation supervisor errors may have been included. Yours sincerely, Dr Rodney Marrufo MD, [facility] - Urology Providers of Expert, Compassionate Care for the Genitourinary System Coding Level of Care Code Est Pt Level 3 (20271) Diagnoses Weak urinary stream R39.12 BPH w urinary obs/LUTS N40.1; N13.8 CPT Codes Post Residual Void - PVR CPT Code: 47937-Wfib Void Residual by ultrasound ([id number])
== END 2022-10-14 14:54 | disposition home or self-care (01) ==
PROVIDERS: Visit Provider Urology
DX: N40.1 Benign prostatic hyperplasia with lower urinary tract symptoms (principal); R39.12 Poor urinary stream; N13.8 Other obstructive and reflux uropathy
CPT/HCPCS: 99213

== ENCOUNTER → 2022-10-14 14:13 | Outpatient (BNVA) | payer OTHER, SELFPAY | PROVIDERS: Visit Provider Urology | DX: N40.1 Benign prostatic hyperplasia with lower urinary tract symptoms (principal); N13.8 Other obstructive and reflux uropathy; R35.1 Nocturia; R39.12 Poor urinary stream; Z79.899 Other long term (current) drug therapy | CPT/HCPCS: 51798; 99212 ==

== ENCOUNTER 2023-02-25 12:18 | Outpatient (REF) | payer OTHER, SELFPAY ==
[2023-03-02 09:24] LABS: Codeine, Ur NEGATIVE; Hydrocodone, Ur NEGATIVE; Hydromorphone, Ur NEGATIVE; Morphine, Ur NEGATIVE; Norhydrocodone, Ur NEGATIVE; Noroxycodone, Ur NEGATIVE; Oxycodone, Ur NEGATIVE; Oxymorphone, Ur NEGATIVE
== END 2023-02-25 12:19 | disposition home or self-care (01) ==
LOC: HO.HHCLNP 12:18
PROVIDERS: Visit Provider Family Medicine
DX: F11.20 Opioid dependence, uncomplicated (principal)
CPT/HCPCS: 80365; G0480

== ENCOUNTER 2023-03-12 07:43 | Outpatient (REF) | payer OTHER, SELFPAY ==
--- NOTE | 2023-03-12 08:06 | EMG_ITS ---
Right median and ulnar motor and sensory studies were performed. Right radial sensory study was performed. Right median and lateral antecubital brachial sensory studies were performed. Needle examination was performed. IMPRESSION: 1. Mild right ulnar neuropathy across cubital tunnel. 2. Mild right lower cervical radiculopathy. MD DARREN Hidalgo/RANDOLPH / [id number]
== END 2023-03-12 07:44 | disposition home or self-care (01) ==
LOC: HO.NEURO 07:43
PROVIDERS: PCP Nurse Practitioner Primary Care; Visit Provider Family Medicine
DX: R20.0 Anesthesia of skin (principal)
CPT/HCPCS: 95886; 95909; 95910

== ENCOUNTER 2023-03-13 10:15 | Outpatient (REF) | payer OTHER, SELFPAY ==
[2023-03-13 12:28] LABS: Hematocrit 45.3 % (42.0-52.0); Hemoglobin 15.3 g/dl (14.0-18.0); Mean Corpuscular HGB Conc 33.8 g/dl (31.0-36.0); Mean Corpuscular Hemoglobin 30.2 pg (27.0-33.0); Mean Corpuscular Volume 89.3 fL (80.0-98.0); Mean Platelet Volume 11.7 fL (9.4-12.4); Platelet Count 205 X10*3/uL (160-400); Red Blood Count 5.07 X10*6/uL (4.60-5.80); Red Cell Distribution Width 12.5 % (11.0-16.0); White Blood Count 4.7 X10*3/uL (4.8-10.8)
[2023-03-13 12:53] LABS: Estimated Average Glucose 105 mg/dL; Hemoglobin A1c % 5.3 % (<6.0)
[2023-03-13 13:28] LABS: Alanine Aminotransferase 19 U/L (0-40); Albumin Level 4.6 g/dL (3.5-5.0); Alkaline Phosphatase 77 U/L (39-117); Anion Gap 10 (12-20); Aspartate Amino Transferase 25 U/L (5-37); Bilirubin Direct 0.4 mg/dL (0.0-0.5); Blood Urea Nitrogen 12 mg/dL (9-16); Calcium 9.4 mg/dL (8.4-10.2); Carbon Dioxide 27 mmol/L (22-29); Chloride 106 mmol/L (96-108); Cholesterol 237 mg/dL (<200); Estimated Glomerular Filt Rate > 60; Glucose Random 88 mg/dL (60-115); HDL Cholesterol 39 mg/dL (>40); LDL Cholesterol Calculated 173 mg/dL (<100); Sodium 139 mmol/L (135-145); Triglycerides 127 mg/dL (<150)
[2023-03-13 13:35] LABS: Free T4 (Free Thyroxine) 0.98 ng/dL (0.71-1.85); Thyroid Stimulating Hormone 1.63 uIU/mL (0.32-4.0); Vitamin D 25-OH Total 25.3 ng/mL (>30)
== END 2023-03-13 10:16 | disposition home or self-care (01) ==
LOC: HO.HHCL 10:15
PROVIDERS: Visit Provider Family Medicine
DX: M79.604 Pain in right leg (principal); G40.909 Epilepsy, unspecified, not intractable, without status epilepticus; B18.2 Chronic viral hepatitis C; K74.60 Unspecified cirrhosis of liver; K76.6 Portal hypertension; N40.0 Benign prostatic hyperplasia without lower urinary tract symptoms
CPT/HCPCS: 36415; 80048; 80061; 80076; 82306; 82550; 83036; 84439; 84443; 85027

== ENCOUNTER 2023-03-16 06:14 | Day surgery (SDC) | payer OTHER, SELFPAY ==
[2023-03-12 11:00] VITALS: BMI 22.5
--- NOTE | 2023-03-13 09:31 | HO.ANESPROP2 ---
Documented by User: Lakeisha Ralph NP 03/13/23 09:36 HPI - Anesthesia Eval Consult details Narrative: 67yo M for Colonoscopy Cirrhosis Suboxone daily PMFSH Active Problems Active Problems: All Active Problems (Updated 08/12/22 @ 09:25 by Rodney Marrufo MD) Weak urinary stream (Acute) BPH w urinary obs/LUTS (Acute) Anterior chest wall pain (Acute) Abdominal pain (Acute) Rib pain on left side (Acute) Midline thoracic back pain (Acute) Early satiety (Acute) Cirrhosis of liver without ascites (Acute) History of adenomatous polyp of colon (Acute) Chronic constipation (Acute) Past Medical History Medical History Rib pain on left side Chronic hepatitis C virus genotype 1a infection Cirrhosis of liver without ascites History of adenomatous polyp of colon Combined drug dependence excluding opioids Chronic constipation Seizures Anxiety Depression Family History Family History Father No problems noted. Mother No problems noted. Surgical History Surgical History History of pterygium excision History of prostate surgery Hx of cystoscopy Hx of endoscopy History of colonoscopy History of hernia repair Social History Social History Household Members: None Patient Tobacco Use Status: Current everyday Tobacco user Tobacco use type: Cigarette Cigarette Packs Per Day: 0.1 Cigarettes Per Day: 2.0 Years Smoked: 43 Use of substances other than those prescribed or required for medical reasons: No Substance Use Type: Former Substance User and Opiates Are you DNR?: No Advance Directives: No Advance Directives Information Provided: Yes Current occupational status: unemployed 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 Meds Allergies Allergy/AdvReac Type Severity Reaction Status Date / Time No Known Allergies Allergy Verified 10/14/22 14:24 Home Medications Medication Instructions Recorded Confirmed Last Taken Type buprenorphine 8 mg-naloxone 2 mg 1 film buccal DAILY 01/12/20 03/16/23 08/14/20 History sublingual film (Suboxone) sertraline 50 mg tablet 50 mg PO DAILY 01/12/20 03/16/23 Unknown History ergocalciferol (vitamin D2) 1,250 1,250 mcg PO QAM 12/30/21 10/14/22 Unknown History mcg (50,000 unit) capsule gabapentin 600 mg tablet 600 mg PO TID 12/30/21 03/16/23 Unknown History ketoconazole 2 % shampoo topical 12/30/21 10/14/22 Unknown History quetiapine 50 mg tablet 50 mg PO BEDTIME 05/22/22 03/16/23 Unknown History Exam Height,Weight and Vital Signs: Height 5 ft 11 in Weight 73.028 kg Narrative Narrative: US abdomen limited 06/2022 IMPRESSION: Diffusely increased liver echogenicity. This is a nonspecific finding but most suggestive of hepatic steatosis. Correlation with liver enzymes recommended. Documented by User: Kiera Portillo MD 03/16/23 08:40 [facility] Past Medical History Medical History Rib pain on left side Chronic hepatitis C virus genotype 1a infection Cirrhosis of liver without ascites History of adenomatous polyp of colon Combined drug dependence excluding opioids Chronic constipation Seizures Anxiety Depression Family History Family History Father No problems noted. Mother No problems noted. Surgical History Surgical History History of pterygium excision History of prostate surgery Hx of cystoscopy Hx of endoscopy History of colonoscopy History of hernia repair History of Problems with Anesthesia: No Social History Social History Household Members: None Patient Tobacco Use Status: Current everyday Tobacco user Tobacco use type: Cigarette Cigarette Packs Per Day: 0.1 Cigarettes Per Day: 2.0 Years Smoked: 43 Use of substances other than those prescribed or required for medical reasons: No Substance Use Type: Former Substance User and Opiates Are you DNR?: No Advance Directives: No Advance Directives Information Provided: Yes Current occupational status: unemployed 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 Meds Allergies Allergy/AdvReac Type Severity Reaction Status Date / Time No Known Allergies Allergy Verified 10/14/22 14:24 Home Medications Medication Instructions Recorded Confirmed Last Taken Type buprenorphine 8 mg-naloxone 2 mg 1 film buccal DAILY 01/12/20 03/16/23 08/14/20 History sublingual film (Suboxone) sertraline 50 mg tablet 50 mg PO DAILY 01/12/20 03/16/23 Unknown History ergocalciferol (vitamin D2) 1,250 1,250 mcg PO QAM 12/30/21 10/14/22 Unknown History mcg (50,000 unit) capsule gabapentin 600 mg tablet 600 mg PO TID 12/30/21 03/16/23 Unknown History ketoconazole 2 % shampoo topical 12/30/21 10/14/22 Unknown History quetiapine 50 mg tablet 50 mg PO BEDTIME 05/22/22 03/16/23 Unknown History Exam Airway Mallampati Class: II TM Dist: >3cm Neck ROM: Full Loose/Missing/Broken Teeth: Yes, Upper and Lower (edentulous) Heart: RRR Lungs: CTA Assessment and Plan Assessment Anesthesia Assessment: Anesthesia Plan Discussed and Chart Reviewed Final Anesthetic Review History of Problems with Anesthesia: No NPO: Yes ASA Class: II Final Preanesthetic Review: Meds/Allgs Chart Reviewed, Consent Obtained/Reviewed and Anes Risks/Benef Reviewed Patient Risk: Low Procedure Risk: Low Anesthetic Plan Anesthetic Plan: MAC: Disposition: Standard PACU
[2023-03-16 07:28] VITALS: BMI 22.5
--- NOTE | 2023-03-16 07:41 | MHC.SHP ---
Pre-Procedural Eval Section A Date of Service: 03/16/23 The patient is an INPATIENT: No The History & Physical has been completed within 30 days and I have reviewed it.: No Section B Chief Complaint: Surveillance for colon polyps Relevant Family History (Specify if Yes): No Relevant Social History: Tobacco Use Present Medications: see Short Stay Collaborative assessment Medical History: Significant History (Chronic constipation Chronic hepatitis C virus genotype 1a infection Cirrhosis of liver without ascites Combined drug dependence excluding opioids Depression History of adenomatous polyp of colon Rib pain on left side Seizures) History of Previous Operations: Relevant previous surgery/procedure and date(s) (History of colonoscopy History of hernia repair History of prostate surgery History of pterygium excision Hx of cystoscopy Hx of endoscopy) Allergies: Allergies Allergy/AdvReac Type Severity Reaction Status Date / Time No Known Allergies Allergy Verified 10/14/22 14:24 Review of Systems Sugical H&P ROS: Negative: Constitution, Cardiovascular, Respiratory and Gastrointestinal Exam Surgical H&P Exam: Normal: Heart, Normal: Lungs, Normal: Extremities and Normal: Abdomen Plan Diagnosis/Plan: Unchanged I have reviewed the history and physical and performed a pertinent physical examination on my patient. No changes have occurred unless specified. Time Spent With Patient Time: Total time managing care of this patient today ____ minutes.
[2023-03-16 07:55] VITALS: BP 124/75; PULSE 68; RESP 16; TEMP -12.7; TEMP 9; O2SAT 96
[2023-03-16] MEDS: Lactated Ringers 1,000 ML 100 ML IVCONT (08:05)
[2023-03-16 08:18] LABS: Hematocrit 43.5 % (42.0-52.0); Hemoglobin 14.7 g/dl (14.0-18.0); Mean Corpuscular HGB Conc 33.8 g/dl (31.0-36.0); Mean Corpuscular Hemoglobin 29.7 pg (27.0-33.0); Mean Corpuscular Volume 87.9 fL (80.0-98.0); Mean Platelet Volume 10.6 fL (9.4-12.4); Platelet Count 218 X10*3/uL (160-400); Red Blood Count 4.95 X10*6/uL (4.60-5.80); Red Cell Distribution Width 12.3 % (11.0-16.0); White Blood Count 4.6 X10*3/uL (4.8-10.8)
--- NOTE | 2023-03-16 08:20 | W.PM.OPN ---
Operative Note Operative Note Date of Service: 03/16/23 Narrative: COLONOSCOPY TILL CECUM WITH BIOPSIES Pre-op diagnosis: Surveillance for colon polyps Post-op diagnosis:? Colon polyps, diverticulosis, hemorrhoids Endoscopist:? Essie Larry MD Anesthesia:?MAC Consent: Indications for the procedure and potential complications of bleeding, perforation, reaction to medications and missed diagnosis were discussed with the patient with the help of an [facility] [place] speech and language clinician, Alisha, and informed consent was obtained. Instrument: Olympus CF H 190 L variable stiffness adult colonoscope Monitoring: Vital signs and clinical assessment, intermittent blood pressure monitoring, continuous EKG monitoring, Pulse oximetry and Carbon Dioxide monitoring were done throughout the procedure. Please see anesthesia flowsheet. Colon withdrawl time was 16 minutes. Procedure: The patient was placed in the left lateral decubitis position and pre-procedure medications were administered. After a digital rectal examination of the ano-rectum, the video colonoscope was inserted into the rectum and advanced through the colon to the cecum. The colonoscope was slowly withdrawn in a retrograde panoramic fashion and the colon mucosa was carefully examined including a retroflexed view of the rectum. Findings and interventions are described below. Procedure Difficulty: Colon was long and tortuous and there was some loop formation Findings: Terminal Ileum: Not evaluated Cecum: Normal Ascending Colon: Normal Transverse Colon: A 2-3 mm sessile polyp - removed with a cold biopsy Descending Colon: Moderate diverticulosis Sigmoid Colon: Moderate diverticulosis Rectum: A few diminutive appearing polyps in the distal rectum - one removed with a codl biopsy Ano-rectum: Moderate internal hemorrhoids Colon preparation: [Excellent] [Good] [Fair] [poor] Impression and Post Procedure Diagnosis: Colonoscopy Findings: Two small polyps removed Moderate diverticulosis seen in the left colon Moderate hemorrhoids on retroflexed exam. Plan: Await pathology results Patient has an appointment on 03/24/23 in the GI Clinic with Essie Larry M.D. Repeat Colonoscopy interval based on path results - in 5 years if polyps are adenomatous and 10 years if polyps are hyperplastic. Above findings were reviewed with the patient and colon polyps handout was given in the discharge area
[2023-03-16 08:22] LABS: Prothrombin Time 12.6 SEC (11.1-13.3)
--- NOTE | 2023-03-16 08:39 | PC.NURSE ---
OR nurse aware all labs were not resulted when pt was brought to Endo room.
[2023-03-16 08:40] LABS: Alanine Aminotransferase 16 U/L (0-40); Albumin Level 4.3 g/dL (3.5-5.0); Alkaline Phosphatase 72 U/L (39-117); Anion Gap 11 (12-20); Aspartate Amino Transferase 25 U/L (5-37); Bilirubin Total 2.4 mg/dL (0.0-1.0); Blood Urea Nitrogen 10 mg/dL (9-16); Calcium 9.2 mg/dL (8.4-10.2); Carbon Dioxide 24 mmol/L (22-29); Chloride 108 mmol/L (96-108); Creatinine Clr Calc Pharmacy 84.2; Estimated Glomerular Filt Rate > 60; Glucose Fasting 96 mg/dL (60-99); Potassium 3.8 mmol/L (3.3-5.1); Sodium 139 mmol/L (135-145); Total Protein 7.4 g/dL (6.5-8.0)
[2023-03-16 08:58] VITALS: BP 95/55; PULSE 57; RESP 18; TEMP 36.2; O2SAT 97
[2023-03-16 09:13] VITALS: BP 105/68; PULSE 58; RESP 18; O2SAT 97
[2023-03-16 09:28] VITALS: BP 124/82; PULSE 56; RESP 18; TEMP 36.4; O2SAT 96
== END 2023-03-16 10:21 | disposition home or self-care (01) ==
PROVIDERS: Nurse Practitioner; Visit Provider Internal Medicine Gastroenterology
PROC: 0DJD8ZZ Inspection of Lower Intestinal Tract, Via Natural or Artificial Opening Endoscopic (ICD-10-PCS; CPT 45378; principal; 2023-03-16 08:30)
DX: Z12.11 Encounter for screening for malignant neoplasm of colon (principal); K63.5 Polyp of colon; K62.1 Rectal polyp; K56.2 Volvulus; K57.30 Diverticulosis of large intestine without perforation or abscess without bleeding; K64.8 Other hemorrhoids; Z86.010 Personal history of colon polyps; K59.09 Other constipation; K31.84 Gastroparesis; K74.60 Unspecified cirrhosis of liver; B18.2 Chronic viral hepatitis C; F11.20 Opioid dependence, uncomplicated; Z79.899 Other long term (current) drug therapy
CPT/HCPCS: 45380; 36415; 80053; 85027; 85610; 88305; J2704

== ENCOUNTER → 2023-03-16 06:14 | Outpatient (BNV) | payer OTHER, SELFPAY | PROVIDERS: Visit Provider Internal Medicine Gastroenterology | DX: Z12.11 Encounter for screening for malignant neoplasm of colon (principal); D12.3 Benign neoplasm of transverse colon; D12.8 Benign neoplasm of rectum; K64.8 Other hemorrhoids; K57.30 Diverticulosis of large intestine without perforation or abscess without bleeding | CPT/HCPCS: 45380 ==

== ENCOUNTER 2023-03-25 14:14 | Outpatient (REF) | payer OTHER, SELFPAY ==
[2023-03-31 09:12] LABS: Codeine, Ur NEGATIVE; Hydrocodone, Ur NEGATIVE; Hydromorphone, Ur NEGATIVE; Morphine, Ur NEGATIVE; Oxycodone, Ur NEGATIVE; Oxymorphone, Ur NEGATIVE
[2023-03-31 09:13] LABS: Norhydrocodone, Ur NEGATIVE; Noroxycodone, Ur NEGATIVE
== END 2023-03-25 14:15 | disposition home or self-care (01) ==
LOC: HO.HHCLNP 14:14
PROVIDERS: Visit Provider Family Medicine
DX: F11.20 Opioid dependence, uncomplicated (principal)
CPT/HCPCS: 80365; G0480

== ENCOUNTER 2023-04-14 11:00 | Outpatient (REF) | payer OTHER, SELFPAY ==
--- NOTE | ~2023-04-14 | XR_ITS ---
EXAMINATION: XR WRIST, LEFT CLINICAL INFORMATION: Fall and left wrist. Pain COMPARISON: None available. TECHNIQUE: 4 views of the left wrist. FINDINGS: The bones and soft tissues are normal. No fracture. Alignment is anatomic with normal joint spaces. There are no bony erosions seen. There is a radiopaque metallic foreign body overlying the dorsal aspect of distal second metacarpal. XR/XR wrist LT min 3V IMPRESSION: 1. Unremarkable left wrist exam. 2. There is 4 mm radiopaque metallic foreign body overlying the dorsal aspect of distal second metacarpal
== END 2023-04-14 11:01 | disposition home or self-care (01) ==
LOC: HO.HHCX 11:00
PROVIDERS: Visit Provider Emergency Medicine
DX: M25.532 Pain in left wrist (principal)
CPT/HCPCS: 73110

== ENCOUNTER 2023-04-17 14:00 | Outpatient (AMB) | payer OTHER, SELFPAY ==
--- NOTE | 2023-04-17 14:02 | A.OFFVIS_ITS ---
Intake Intake Visit Reasons: 6m follow up Intake Note: Patient is Present for Telephone Follow Up Urology Med: Not taking finasteride, terazosin (does not want to take it) Antibiotic Allergy: none Blood Thinner: none Allergies No Known Allergies Allergy (Verified 04/17/23 14:04) HPI HPI Comments History of Present Illness Details Shaggy is a pleasant male. He is a patient of Dr. Baeza. He is seen for the following urologic conditions - lower urinary tract symptoms Telemedicine Evaluation 15 min Consultation [facility] [place] [facility] Video attempted Danish translation provided in office by qualified adjunct faculty for medical terminology Follow-up for medication trial Stopped using combination therapy Having minimal issues with his urination Does report postvoid dribbling Information sent in Danish He will call if not effect Lower urinary tract symptoms Initial symptom presentation with pelvic pressure in the morning, nocturia x2, weakness of stream Current therapy combination finasteride and terazosin 5 mg Prior therapy tamsulosin LUIS CARLOS 2+ prostate soft approximately 60 g PSA 10/26 3.0 PFSH Medical History Rib pain on left side Chronic hepatitis C virus genotype 1a infection Cirrhosis of liver without ascites History of adenomatous polyp of colon Combined drug dependence excluding opioids Chronic constipation Seizures Anxiety Depression Surgical History History of pterygium excision History of prostate surgery Hx of cystoscopy Hx of endoscopy History of colonoscopy History of hernia repair Family History Father No problems noted. Mother No problems noted. 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 Review of Systems Const All systems reviewed & are unremarkable except as noted in HPI and below Reports no additional complaints Resp Reports no additional complaints GI Reports no additional complaints Reports as per HPI Musc Reports no additional complaints Physical Exam Telemedicine evaluation Appropriate responses Regular breathing rate and rhythm HEENT Head: Yes normal to inspection Ears: hearing grossly normal bilaterally Eyes General: appearance normal, both eyes and all related structures Neck Neck: Yes normal visual inspection Chest Chest palpation & inspection: normal inspection of the chest Resp Effort & Inspection: normal respiratory effort and able to speak in complete sentences Assessment & Plan Assessment & Plan (1) BPH w urinary obs/LUTS: Code(s): N40.1 - Benign prostatic hyperplasia with lower urinary tract symptoms; N13.8 - Other obstructive and reflux uropathy (2) Weak urinary stream: Code(s): R39.12 - Poor urinary stream Plan P.r.n. follow-up Patient Instructions: Imaging studies, laboratory and physical exam results were discussed and reviewed in detail. No major barriers to patient understanding were identified. An opportunity to ask questions regarding the treatment plan was provided. All questions were answered. The patient expressed understanding and agreement with the above treatment plan. The patient is aware they should contact our office by phone for worsening of their current condition or the appearance of new urologic symptoms. Compliance is encouraged with any medications and followup testing that is ordered. It is a privilege to participate in the urologic care of your patient. If you have any questions or concerns regarding treatment for the above conditions, or other urologic issues, please do not hesitate to contact me. The office telephone contact is [phone]. This note is constructed using voice recognition software. While every effort has been made to ensure accuracy scraper hand errors may have been included. Yours sincerely, Dr Rodney Marrufo MD, [facility] - Urology Providers of Expert, Compassionate Care for the Genitourinary System Telehealth Telehealth Location of provider rendering services: practice address Location of patient: address on file Patient Identification confirmed using: Name, : Yes Telehealth method: video Patient verbally consented to treatment: Yes Patient verbally consented to billing insurance company: Yes Patient informed of any privacy concerns related to visit: Yes Coding Level of Care Code Tele Est Pt Level 4 (70108) Diagnoses BPH w urinary obs/LUTS N40.1; N13.8 Weak urinary stream R39.12
== END 2023-04-17 15:12 | disposition home or self-care (01) ==
LOC: HO.HUSH 14:00
PROVIDERS: Visit Provider Urology
DX: N40.1 Benign prostatic hyperplasia with lower urinary tract symptoms (principal); N13.8 Other obstructive and reflux uropathy; R39.12 Poor urinary stream
CPT/HCPCS: 99213

== ENCOUNTER → 2023-04-17 14:00 | Outpatient (BNVA) | payer OTHER, SELFPAY | PROVIDERS: Visit Provider Urology ==

== ENCOUNTER 2023-04-28 08:37 | Outpatient (REF) | payer OTHER, SELFPAY ==
[2023-05-01 19:34] LABS: CK-BB None Detected (None Detected); CK-MB 0 % (<5); CK-MM 100 % (95-100); Creatine Kinase,Total,Serum 46 U/L (44-196)
== END 2023-04-28 08:38 | disposition home or self-care (01) ==
LOC: HO.HHCL 08:37
PROVIDERS: Visit Provider Nurse Practitioner Primary Care
DX: R74.8 Abnormal levels of other serum enzymes (principal)
CPT/HCPCS: 36415; 82552

== ENCOUNTER 2023-11-12 08:21 | Outpatient (AMB) | payer OTHER, SELFPAY ==
--- NOTE | 2023-11-12 08:22 | A.OFFVIS_ITS ---
Vital Signs 11/12/23 08:29 Height 5 ft 11 in Weight 156 lb 8.451 oz BMI 21.8 BP 118/77 Blood Pressure Location Lt brachial Position Sitting Pulse 68 Intake Visit Reasons: COLONOSCOPY Intake Note: Shaggy presents in the office as a follow up colonoscopy. CC: he states that yesterday he was having symptoms - he was having stomach pains and diarrhea. It was a severe pain in the stomach. Business Performance Manager Required: Yes Business Performance Manager Name: LOUISE [id number] Allergies No Known Allergies Allergy (Verified 11/12/23 08:30) Medication List - Last Reconciled 11/12/23 by Essie Larry MD buprenorphine-naloxone 8-2 mg (Suboxone) 1 film buccal DAILY ergocalciferol (vitamin D2) 1,250 mcg PO QAM gabapentin 600 mg PO TID ketoconazole 2% 1 appl topical omeprazole 20 mg PO BID 30 days quetiapine 100 mg PO BEDTIME sertraline 50 mg PO DAILY triamcinolone acetonide 0.1% 1 appl topical BID-TID HPI HPI COLONOSCOPY: Details: GI CLINIC VISIT FOR THIS 68 YEAR OLD INDONESIAN SPEAKING MALE followed in GI for liver cirrhosis, history of hepatitis-C (treated) and abnormal CT scan of the colon. (pt was last seen in the GI clinic in May, 2022) ? CHRONIC ILLNESSES:?Anxiety, hepatitis-C genotype 1b since , depression, seborrheic dermatitis, seizures, opioid type dependence, constipation and for hydration. ?[facility] WERE REVIEWED AND SCANNED INTO PT'S CHART: 02/28/20 H & H of 14 & 39.9, PLT 217, normal LFTs.? HCV RNA < 15 05/06/19 Normal CBC, PLT 202, total bilirubin 1.8, AST 38, ALT 36, ap 76, ? 07/2018 Hepatitis C viral load less than 1.18. ? 03/2018 liver fibrosis score of 0.76, liver fibrosis stage of F4. ?IMAGING STUDIES: 06/2022 ABD US SHOWED: Diffusely increased liver echogenicity. This is a nonspecific finding but most suggestive of hepatic steatosis. Correlation with liver enzymes recommended. 06/2021 GASTRIC EMPTYING STUDY WAS NORMAL. 12/20/[address] SCAN SHOWED: Unremarkable liver with and without contrast .? Mild constipation. 05/08/20 ABD US SHOWED: LIVER:? The liver is normal in size. The liver contour is normal. There is diffuse increased liver echogenicity. No focal hepatic lesion. There is no intrahepatic biliary duct dilatation seen. 11/30/19 ? Abdominal CT scan showed mild constipation and no acute process. ? 12/[address] scan showed: ? LIVER, GALLBLADDER, AND BILIARY TREE: The liver is normal in size, ? shape, and attenuation. No focal hepatic lesion or biliary ductal ? dilatation is present. Gallbladder is contracted. There is no bile duct dilatation. ? PANCREAS: Unremarkable. ? SPLEEN: Unremarkable. ? GASTROINTESTINAL TRACT: The small and large bowel are unremarkable. ? The appendix is nonvisualized. There is no inflammation of the mesentery. ? ?ENDOSCOPIC STUDIES: ? 03/2023 COLONOSCOPY SHOWED: Two small hyperplastic polyps removed Moderate diverticulosis seen in the left colon Moderate hemorrhoids on retroflexed exam. Plan: Repeat Colonoscopy was advised in 5 years due to a hx of adenomatous colon polyps. 08/14/20 EGD SHOWED: ESOPHAGUS:? Focal esophagitis STOMACH:? Diffuse gastritis BIOPSIES SHOWED: A.? Stomach, antrum, biopsy:? Antral-type and oxyntic mucosa with moderate chronic inactive inflammation; no Helicobacter organisms seen. B.? Stomach, body, biopsy:? Oxyntic mucosa with moderate chronic inactive inflammation; no Helicobacter organisms seen. 12/16/2019 COLONOSCOPY SHOWED: Three polyps removed Moderate diverticulosis seen in the left colon Moderate hemorrhoids on retroflexed exam. Plan: Patient has an appointment on 01/13/20 in the GI Clinic with Essie Larry M.D.- Repeat Colonoscopy interval based on path results in 3 years if polyps are adenomatous and 10 years if polyps are hyperplastic. Above findings were reviewed with the patient and colon polyps and diverticulosis handouts were given in the discharge area BIOPSIES SHOWED: A. Cecum, polypectomy: Tubular adenoma; no high grade dysplasia or carcinoma seen. B. Colon, sigmoid, polypectomy: Tubular adenoma; no high grade dysplasia or carcinoma seen. C. Rectum, polypectomy: Hyperplastic mucosal polyp. ?TODAY'S VISIT CC: he states that yesterday he was having symptoms - he was having stomach pains and diarrhea. It was a severe pain in the stomach. ? 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 Had soup yesterday and noted upper abd pain followed by diarrhea and pain resolved after half an hour Has a BM twice a week Complains of LUQ which resolves after he has a BM PAST VISIT: Has been doing pretty good Notes mild abdominal pain below the belly button after eating and resolves quickly. Sometimes he does not go for 3 days and not taking any medications. Abdominal pain gets worse when he sits and stomach becomes tight. Constipation is better. Has a BM every morning. Feels full and bloated even when he does not eat anything. Has pain on the left side of the chest and nipple and radiates to the abdomen. Continues to have abd pain - LUQ quadrant and moves to the right side. Complains of constipation and has a BM twice a week. Notes abd pain when he strains. ABD CT scan results reviewed. Feeling a little better though still has some pain in the stomach Denies abdominal pain - feels his stomach is inflamed. Feels full although he did not eat today. Feels full after drinking coffee sometimes. Patient denies bloating or abdominal distension. Denies fever, chills, nausea or vomiting Denies diarrhea, constipation, black stools or rectal bleeding Has been gaining weight. Patient states he is experiencing abdominal pain and inflammation for the past week. He would like to be seen Had lab tests done at [facility] recently US results reviewed with the patient. Not taking any medications for constipation and doing OK. Has a BM every other day [facility] Medical History Rib pain on left side Chronic hepatitis C virus genotype 1a infection Cirrhosis of liver without ascites History of adenomatous polyp of colon Combined drug dependence excluding opioids Chronic constipation Seizures Anxiety Depression Surgical History History of pterygium excision History of prostate surgery Hx of cystoscopy Hx of endoscopy History of colonoscopy History of hernia repair Family History Father No problems noted. Mother No problems noted. 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 Review of Systems Const All systems reviewed & are unremarkable except as noted in HPI and below Physical Exam Const General: healthy appearing and no acute distress Nutritional Appearance: average body habitus Orientation/consciousness: patient oriented x3 Limitations: language barrier HEENT Head: Yes normal to inspection Ears: hearing grossly normal bilaterally Eyes Sclerae: sclerae normal Pupils: Equal, round and reactive pupils present Neck Neck: Yes normal visual inspection Chest Chest palpation & inspection: normal inspection of the chest Resp Effort & Inspection: normal respiratory effort Auscultation: clear to auscultation bilaterally Cardio Palpation: normal PMI Rate: regular rate Rhythm: regular rhythm Heart sounds: S1 normal heart sound present, S2 normal heart sound present and no murmurs GI Palpation (GI): Soft to palpation, nontender and No hepatosplenomegaly present Auscultation: normal bowel sounds Rectal Exam - Male: Yes deferred Skin General skin exam: no rashes or lesions noted Neuro General: patient oriented x3, gait normal and moves all extremities Cranial nerves: Yes Equal, round and reactive pupils present Psych Appearance: grossly normal Mental Status: mental status grossly normal Assessment & Plan Assessment & Plan (1) Chronic constipation: Code(s): K59.09 - Other constipation Category: Medical (2) History of adenomatous polyp of colon: Comment: 12/16/19 colonoscopy showed diverticulosis and 2 adenomatous polyps were removed. Repeat colonoscopy is advised in 3 years. Due 12/2022 Code(s): Z86.010 - Personal history of colonic polyps Category: Medical (3) Cirrhosis of liver without ascites: Code(s): K74.60 - Unspecified cirrhosis of liver Category: Medical (4) Early satiety: Code(s): R68.81 - Early satiety Category: Medical (5) Abdominal pain: Code(s): R10.9 - Unspecified abdominal pain Category: Medical Plan 68 YM with Anxiety, Hepatitis C-genotype 1b since , depression, seborrheic dermatitis, seizures, opioid type dependency, combinations of drug dependence excluding opioid, constipation followed in GI for Liver cirrhosis and a history of Hep C infection. Chronic Hepatitis C (genotype 1 b) status post treatment with Epclusa x 3 months in 2018. FU labs confirmed Hep C eradication. Recurrent Hep C infection with genotype 1a.? He was re-treated with Mavyret. Pt with compensated cirrhosis with F4 fibrosis on Liver fibrosis test. No vari davian seen on last EGD. Plan is to continue to monitor labs and liver imaging studies every 6 months. 11/30/[address] scan ? Showed mild constipation and no acute problems. 05/2020 abd US showed diffuse increased liver echogenicity, no focal hepatic lesion and no intrahepatic biliary duct dilatation seen. Patient with complaints of early satiety possibly related to peptic ulcer disease versus slow gastric emptying due to Suboxone. Patient was advised to start omeprazole 20 mg once daily and schedule an upper endoscopy. 08/14/20 EGD showed diffuse gastritis and focal esophagitis, gastric biopsies w ere negative for Helicobacter pylori. Abdominal CT scan was normal except for residual stools. 05/22/22 Patient was advised to start Miralax for constipation and schedule an abd US and a colonoscopy 11/11/23 LUQ pain likely due to constipation Pt advised to have labs and an ABd US Start Linzess 15 mcg daily for constipation Follow up in 8 to 10 weeks Orders: Orders US abdomen covington w elastography Today K74.60 - Unspecified cirrhosis of liver Prothrombin Time INR Today K74.60 - Unspecified cirrhosis of liver Complete Blood Count Auto Diff Today K74.60 - Unspecified cirrhosis of liver Comprehensive Met. Panel Today K74.60 - Unspecified cirrhosis of liver Lipase Today K74.60 - Unspecified cirrhosis of liver Medications: New linaclotide (Linzess) 145 mcg PO QAM 30 days 30 caps 3RF K59.09 - Other constipation Discontinued polyethylene glycol 3350 (Miralax) Discontinued Reason: Patient no longer taking 17 grams PO DAILY 30 days 510 grams 3RF K59.09 - Other constipation Coding Level of Care Code Est Pt Level 4 (42343) Diagnoses Chronic constipation K59.09 History of adenomatous polyp of colon Z86.010 Cirrhosis of liver without ascites K74.60 Early satiety R68.81 Abdominal pain R10.9 Time Spent (min) 24
[2023-11-12 08:29] VITALS: BP 118/77; PULSE 68; BMI 21.8
== END 2023-11-12 09:00 | disposition home or self-care (01) ==
PROVIDERS: Visit Provider Internal Medicine Gastroenterology
DX: K59.09 Other constipation (principal); Z86.010 Personal history of colon polyps; K74.60 Unspecified cirrhosis of liver; R68.81 Early satiety; R10.9 Unspecified abdominal pain
CPT/HCPCS: 99214

== ENCOUNTER 2023-11-12 08:21 | Outpatient (REF) | payer OTHER, SELFPAY ==
[2023-11-12 09:12] LABS: MANUAL DIFF FLAG NO
[2023-11-12 09:38] LABS: Basophils Absolute Auto 0.1 X10*3/uL (0.0-0.2); Basophils Percent Auto 1.7 % (0-2); Eosinophils Absolute Auto 0.2 X10*3/uL (0.0-0.4); Eosinophils Percent Auto 3.2 % (0-4); Hematocrit 45.3 % (42.0-52.0); Hemoglobin 15.4 g/dl (14.0-18.0); Imm Gran Abs Auto 0.01 X10*3/uL (0.00-0.03); Imm Gran Pct Auto 0.2 % (0.0-0.4); Lymphocytes Percent Auto 41.9 % (20-40); Mean Corpuscular Hemoglobin 30.1 pg (27.0-33.0); Mean Corpuscular Volume 88.6 fL (80.0-98.0); Mean Platelet Volume 11.5 fL (9.4-12.4); Monocytes Absolute Auto 0.3 X10*3/uL (0.1-1.2); Monocytes Percent Auto 6.4 % (2-11); Neutrophils Absolute Auto 2.2 x10*3/uL (2.0-8.3); Neutrophils Percent Auto 46.6 % (45-73); Platelet Count 158 X10*3/uL (160-400); Red Blood Count 5.11 X10*6/uL (4.60-5.80); Red Cell Distribution Width 12.5 % (11.0-16.0); White Blood Count 4.7 X10*3/uL (4.8-10.8)
[2023-11-12 09:41] LABS: Prothrombin Time 11.8 SEC (11.1-13.3)
[2023-11-12 10:14] LABS: Alanine Aminotransferase 7 U/L (0-40); Albumin Level 4.3 g/dL (3.5-5.0); Alkaline Phosphatase 80 U/L (39-117); Anion Gap 11 (12-20); Aspartate Amino Transferase 14 U/L (5-37); Bilirubin Total 1.6 mg/dL (0.0-1.0); Blood Urea Nitrogen 7 mg/dL (9-16); Calcium 9.3 mg/dL (8.4-10.2); Carbon Dioxide 23 mmol/L (22-29); Chloride 109 mmol/L (96-108); Estimated Glomerular Filt Rate > 60; Glucose Random 96 mg/dL (60-115); Lipase 32 U/L (8-78); Potassium 4.1 mmol/L (3.3-5.1); Sodium 139 mmol/L (135-145); Total Protein 7.4 g/dL (6.5-8.0)
== END 2023-11-12 08:22 | disposition home or self-care (01) ==
LOC: HO.LAB 08:21
PROVIDERS: PCP Nurse Practitioner Primary Care; Visit Provider Internal Medicine Gastroenterology
DX: K74.60 Unspecified cirrhosis of liver (principal); K59.09 Other constipation; R68.81 Early satiety; Z86.010 Personal history of colon polyps
CPT/HCPCS: 36415; 80053; 83690; 85025; 85610; 99212

== ENCOUNTER 2023-11-25 07:50 | Outpatient (REF) | payer OTHER, SELFPAY ==
--- NOTE | ~2023-11-25 | US_ITS ---
EXAMINATION: US ABDOMEN LIMITED WITH LIVER ELASTOGRAPHY CLINICAL INFORMATION: Cirrhosis. COMPARISON: Ultrasound abdomen 06/25/2022, CT abdomen 12/20/2020. TECHNIQUE: Real-time imaging of the abdominal viscera. Noninvasive ultrasound liver fibrosis assessment is performed using Floridalma ElastPQ point quantification shear wave elastography (pSWE) with a 5 MHz transducer. Multiple elastography samples are obtained. FINDINGS: PANCREAS: The visualized pancreatic head and body are normal in appearance. The remainder of the pancreas is obscured from visualization by the overlying bowel gas. LIVER: The liver is upper limits of normal in size with slightly increased echogenicity. No focal lesion or intrahepatic biliary duct dilatation. The right lobe measures 16.1 cm in length. The left lobe measures 8.7 cm in length. Shear wave elastography provides a median stiffness of 1.57 m/s (reference: normal median stiffness is 0.81 - 1.22 m/s). The IQR/median stiffness to assess sampling precision is 0.15 (reference: optimal IQR/median stiffness is under 0.3). GALLBLADDER: Normal. The gallbladder is physiologically distended without evidence of stones, sludge, polyps, wall thickening or pericholecystic fluid. COMMON BILE DUCT: Normal in caliber measuring 0.5 cm in diameter. RIGHT KIDNEY: No hydronephrosis. No renal calculi or focal parenchymal lesions. The kidney measures 10.1 cm in maximum dimension. FREE FLUID: None. US/US abdomen covington w elastography IMPRESSION: 1. Hepatic steatosis. 2. Elastography: Liver elastography measurements are consistent with a minimal risk for clinically significant liver fibrosis (METAVIR Stage F0-F1). Electronically signed by: Carmine Cabrera MD 12/10/2023 09:56 PM EDT
== END 2023-11-25 07:51 | disposition home or self-care (01) ==
LOC: HO.US 07:50
PROVIDERS: PCP Nurse Practitioner Primary Care; Visit Provider Internal Medicine Gastroenterology
DX: K74.60 Unspecified cirrhosis of liver (principal)
CPT/HCPCS: 76705; 76981

== ENCOUNTER 2024-02-24 12:47 | Outpatient (REF) | payer OTHER, SELFPAY ==
[2024-02-29 14:48] LABS: Codeine, Ur NEGATIVE; Hydrocodone, Ur NEGATIVE; Hydromorphone, Ur NEGATIVE; Morphine, Ur NEGATIVE; Norhydrocodone, Ur NEGATIVE; Noroxycodone, Ur NEGATIVE; Oxycodone, Ur NEGATIVE; Oxymorphone, Ur NEGATIVE
== END 2024-02-24 12:48 | disposition home or self-care (01) ==
LOC: HO.HHCLNP 12:47
PROVIDERS: Visit Provider Family Medicine
DX: F11.20 Opioid dependence, uncomplicated (principal)
CPT/HCPCS: 80365; G0480

== ENCOUNTER 2024-03-23 09:34 | Outpatient (REF) | payer OTHER, SELFPAY ==
[2024-03-23 12:13] LABS: Alanine Aminotransferase 22 U/L (0-40); Albumin Level 4.3 g/dL (3.5-5.0); Alkaline Phosphatase 73 U/L (39-117); Anion Gap 10 (12-20); Aspartate Amino Transferase 27 U/L (5-37); Bilirubin Direct 0.3 mg/dL (0.0-0.5); Bilirubin Total 1.1 mg/dL (0.0-1.0); Blood Urea Nitrogen 12 mg/dL (9-16); Calcium 8.7 mg/dL (8.4-10.2); Carbon Dioxide 28 mmol/L (22-29); Chloride 107 mmol/L (96-108); Cholesterol 238 mg/dL (<200); Estimated Glomerular Filt Rate > 60; Glucose Random 94 mg/dL (60-115); HDL Cholesterol 39 mg/dL (>40); LDL Cholesterol Calculated 157 mg/dL (<100); Potassium 3.8 mmol/L (3.3-5.1); Sodium 141 mmol/L (135-145); Total Protein 7.7 g/dL (6.5-8.0); Triglycerides 214 mg/dL (<150)
[2024-03-23 12:29] LABS: Syphilis Screen Nonreactive (Nonreactive)
[2024-03-23 12:30] LABS: HIV AB/AG Nonreactive (Nonreactive); HIV Num 1 0.06 S/CO (0.00-0.99)
[2024-03-24 22:44] LABS: HCV Log PCR <1.18 NOT DETECTED Log IU/mL (NOT DETECTED); HepC Viral Load <15 NOT DETECTED IU/mL (NOT DETECTED)
== END 2024-03-23 09:35 | disposition home or self-care (01) ==
LOC: HO.HHCL 09:34
PROVIDERS: Visit Provider Family Medicine
DX: Z11.4 Encounter for screening for human immunodeficiency virus [HIV] (principal); E78.5 Hyperlipidemia, unspecified; F11.20 Opioid dependence, uncomplicated
CPT/HCPCS: 36415; 80053; 80061; 80076; 82248; 86780; 87389; 87522

== ENCOUNTER 2024-04-05 08:00 | Outpatient (REF) | payer OTHER, SELFPAY ==
[2024-04-05 11:37] LABS: Cholesterol 244 mg/dL (<200); HDL Cholesterol 38 mg/dL (>40); LDL Cholesterol Calculated 166 mg/dL (<100); Triglycerides 201 mg/dL (<150)
== END 2024-04-05 08:01 | disposition home or self-care (01) ==
LOC: HO.HHCL 08:00
PROVIDERS: Visit Provider Nurse Practitioner Primary Care
DX: Z00.01 Encounter for general adult medical examination with abnormal findings (principal); Z13.220 Encounter for screening for lipoid disorders
CPT/HCPCS: 36415; 80061

== ENCOUNTER 2024-05-24 12:53 | Emergency (ER) | payer OTHER, SELFPAY ==
--- NOTE | ~2024-05-24 | CT_ITS ---
CLINICAL HISTORY: Right sided jaw pain CT maxillofacial without contrast Comparison: None Findings: No acute fracture or dislocation identified. Paranasal sinuses and mastoid air cells clear. Mandible and TMJs are unremarkable. Soft tissues unremarkable. No foreign body. Ocular globes symmetric and unremarkable. Impression: No acute bony abnormality. This document has been electronically signed by: Ghanshyam Cooper MD on 05/24/2024 21:16:55
--- NOTE | ~2024-05-24 | CT_ITS ---
CLINICAL HISTORY: NAVARRO CT head without contrast Comparison: 10/09/2018 Findings: No intracranial mass, midline shift, hydrocephalus, or acute hemorrhage. No acute process in sinuses or mastoids. No acute bony abnormality. Impression: No acute intracranial process This document has been electronically signed by: Ghanshyam Cooper MD on 05/24/2024 21:28:26
--- NOTE | 2024-05-24 12:55 | ECG_ITS ---
Test Reason : jaw pain Blood Pressure : */* mmHG Vent. Rate : 64 BPM Atrial Rate : 64 BPM P-R Int : 144 ms QRS Dur : 84 ms QT Int : 390 ms P-R-T Axes : 56 -5 34 degrees QTcB Int : 402 ms Normal sinus rhythm Normal ECG When compared with ECG of 11-Oct-2018 08:12, T wave inversion no longer evident in Anterior leads QT has shortened Referred By: Mya Chandra Electronically Signed By: HAIR DURBIN
[2024-05-24 13:20] VITALS: BP 138/90; PULSE 72; RESP 20; TEMP 36.8; O2SAT 98; BMI 22.2
--- NOTE | 2024-05-24 13:22 | ED_ITS ---
HPI - General Adult General Chief complaint: General Medical Stated complaint: Jaw Pain Time Seen by Provider: 05/24/24 20:11 History of Present Illness ED Provider: Dr. Gillis HPI narrative: 68 y/o M patient; PMH BPH, chronic pain on suboxone, cirrhosis; presents from [facility] with 12 days of right-sided facial/jaw pain. Associated with headaches. He has been to the [facility] multiple times without known etiology of his symptoms, he was started on Augmentin without improvement in his symptoms. He otherwise denies: fever or chills, difficulty breathing, difficulty swallowing, nausea/vomiting, abdominal pain, visual changes, extremity numbness/weakness/tingling. He states the pain only occurs with opening his mouth. He is not sure if he has ever been told that he clenches his jaw. Related Data Home Medications ?Medication ?Instructions ?Recorded ?Confirmed buprenorphine 8 mg-naloxone 2 mg 1 film buccal DAILY 01/12/20 11/12/23 sublingual film (Suboxone) sertraline 50 mg tablet 50 mg PO DAILY 01/12/20 11/12/23 ergocalciferol (vitamin D2) 1,250 1,250 mcg PO QAM 12/30/21 11/12/23 mcg (50,000 unit) capsule gabapentin 600 mg tablet 600 mg PO TID 12/30/21 11/12/23 ketoconazole 2 % topical cream 1 appl topical 11/12/23 11/12/23 quetiapine 100 mg tablet 100 mg PO BEDTIME 11/12/23 11/12/23 triamcinolone acetonide 0.1 % 1 appl topical BID-TID 11/12/23 11/12/23 topical cream Previous Rx's ?Medication ?Instructions ?Recorded omeprazole 20 mg capsule,delayed 20 mg PO BID 30 days #60 caps 06/22/23 release linaclotide 145 mcg capsule 145 mcg PO QAM 30 days #30 caps 11/12/23 (Linzess) Allergies Allergy/AdvReac Type Severity Reaction Status Date / Time No Known Allergies Allergy Verified 05/24/24 13:24 Review of Systems 2 Review of Systems: Yes all other systems are reviewed and are negative Neurologic: Denies Abnormal speech present and Denies Sensory deficit (Neuro) PMFSH Past Medical History Attestation statement: The following information was validated with the patient. Source: old records reviewed Medical History Rib pain on left side Chronic hepatitis C virus genotype 1a infection Cirrhosis of liver without ascites History of adenomatous polyp of colon Combined drug dependence excluding opioids Chronic constipation Seizures Anxiety Depression Surgical History History of pterygium excision History of prostate surgery Hx of cystoscopy Hx of endoscopy History of colonoscopy History of hernia repair Family History Family History Father No problems noted. Mother No problems noted. 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 Physical Exam ED Vital Signs: Vital Signs - 24 hr 05/24/24 13:20 05/24/24 17:24 05/24/24 20:00 Temperature 98.2 F 97.6 F 97.8 F Pulse Rate 72 66 64 Respiratory Rate 20 18 16 Blood Pressure 138/90 H 131/84 129/69 Pulse Oximetry 98 99 98 Oxygen Delivery Method Room Air Room Air Room Air BMI result Body Mass Index 22.2 Patient is afebrile and hemodynamically stable Const General: cooperative Orientation/consciousness: patient oriented x3 HENMT Head: Yes normal to inspection and Yes atraumatic Eyes General: appearance normal, both eyes and all related structures Pupils: Equal, round and reactive pupils present EOM: EOMs intact bilaterally Neck Neck: Yes normal visual inspection, Yes full ROM, Yes supple and No tender Chest Chest palpation & inspection: normal inspection of the chest and normal palpation of entire chest wall Resp Effort & Inspection: normal respiratory effort, able to speak in complete sentences, no cough and no respiratory distress Auscultation: clear to auscultation bilaterally Cardio Rate: regular rate Rhythm: regular rhythm Peripheral pulses: Peripheral pulses 2+ throughout GI Inspection: Yes normal to inspection, No Abdominal wall edema and No distended Palpation (GI): Soft to palpation, not firm, nontender, no guarding and not rigid Auscultation: normal bowel sounds Back/Spine/Pelvis Back: No back tenderness Neuro General: patient oriented x3 and gait normal Cranial nerves: Yes Equal, round and reactive pupils present Cognition (Neuro): normal cognition Speech: No Abnormal speech present Motor exam (neuro): 5/5 motor strength present throughout Sensory Exam: No Sensory deficit (Neuro) Course Course Course Narrative: This is an RME: Additional HPI, ROS, PE not included below will be deferred to primary provider. RME assessment and note performed by: Mya Chandra PA-C This is a 31-ugrp-[id number]-Mexican-speaking male, past medical history of chronic hepatitis C, who presents to the ER with complaints of right sided jaw pain x 4 weeks. Also endorsing headache. No chest pain or shortness of breath. Patient has no teeth. No obvious dental abscess or abnormalities. Nontender. No swelling. He is neurologically intact. He has been seen at the [facility] four times for the same complaint, and was started on Augmentin which he has been taking without any relief. Plan: Labs, EKG, further ER eval needed Reevaluation(s) Reevaluation #1: Patient is afebrile and hemodynamically stable. Exam consistent with likely right sided TMJ dysfunction. Reviewed triage work up. Labs: No leukocytosis. Troponin x2 negative. Added CT Maxillofacial and CT Head. Added ESR and CRP. Provided headache management with tylenol, toradol, reglan, benadryl, 1L IVF. Plan: Transition care to Dr. Ford pending imaging Condition: Stable Medications Administered Discontinued Medications Generic Name Dose Route Start Last Admin Trade Name Freq PRN Reason Stop Dose Admin Acetaminophen 650 mg 05/24/24 17:26 05/24/24 17:28 Acetaminophen 325 Mg Tablet PO 05/24/24 17:27 650 mg ONCE ONE Administration Medical Decision Making Lab Data 05/24/24 14:55 05/24/24 14:55 Labs: Lab Results 05/24/24 05/24/24 Range/Units 14:55 17:44 WBC 4.3 L (4.8-10.8) X10*3/uL RBC 4.95 (4.60-5.80) X10*6/uL Hgb 15.0 (14.0-18.0) g/dl Hct 44.4 (42.0-52.0) % MCV 89.7 (80.0-98.0) fL MCH 30.3 (27.0-33.0) pg MCHC 33.8 (31.0-36.0) g/dl RDW 12.6 (11.0-16.0) % Plt Count 186 (160-400) X10*3/uL MPV 10.5 (9.4-12.4) fL Immature Gran % (Auto) 0.2 (0.0-0.4) % Neut % (Auto) 54.4 (45-73) % Lymph % (Auto) 34.7 (20-40) % [place] % (Auto) 7.0 (2-11) % Eos % (Auto) 2.3 (0-4) % Baso % (Auto) 1.4 (0-2) % Lymph # (Auto) 1.5 (1.2-4.9) X10*3/uL [place] # (Auto) 0.3 (0.1-1.2) X10*3/uL Eos # (Auto) 0.1 (0.0-0.4) X10*3/uL Baso # (Auto) 0.1 (0.0-0.2) X10*3/uL Abs Immat Gran (auto) 0.01 (0.00-0.03) X10*3/uL Absolute Neuts (auto) 2.3 (2.0-8.3) x10*3/uL Absolute Nucleated RBC 0.000 (0.0-0.012) X10*3/uL Nucleated RBC % (auto) 0.0 (0.0-0.2) /100WBC Sodium 139 (135-145) mmol/L Potassium 4.3 (3.3-5.1) mmol/L Chloride 107 (96-108) mmol/L Carbon Dioxide 25 (22-29) mmol/L Anion Gap 11 L (12-20) BUN 10 (9-16) mg/dL Creatinine 0.75 (0.5-1.4) mg/dL Estim Creat Clear Calc 96.2 Estimated GFR > 60 Random Glucose 83 (60-115) mg/dL Calcium 9.3 D (8.4-10.2) mg/dL Magnesium 2.1 (1.6-2.6) mg/dL Total Bilirubin 1.7 H (0.0-1.0) mg/dL Direct Bilirubin 0.3 (0.0-0.5) mg/dL AST 37 (5-37) U/L ALT 35 (0-40) U/L Alkaline Phosphatase 78 (39-117) U/L Troponin I High Sens < 2.7 < 2.7 (<3.5-35.0) ng/L C-Reactive Protein 0.15 (< or = 0.50) mg/dL Total Protein 8.0 (6.5-8.0) g/dL Albumin 4.4 (3.5-5.0) g/dL Discharge Plan Discharge Clinical Impression: Temporomandibular joint dysfunction Patient Disposition: Still a Patient Prescriptions: No Action omeprazole 20 mg capsule,delayed release(DR/EC) 20 mg PO BID 30 Days Qty: 60 4RF buprenorphine-naloxone [Suboxone] 8-2 mg film 1 film buccal DAILY sertraline 50 mg tablet 50 mg PO DAILY ergocalciferol (vitamin D2) 1,250 mcg (50,000 unit) capsule 1,250 mcg PO QAM gabapentin 600 mg tablet 600 mg PO TID quetiapine 100 mg tablet 100 mg PO BEDTIME triamcinolone acetonide 0.1 % cream 1 appl topical BID-TID ketoconazole 2 % cream 1 appl topical Linzess 145 mcg capsule 145 mcg PO QAM 30 Days Qty: 30 3RF Print Language: Mexican
[2024-05-24 15:01] LABS: MANUAL DIFF FLAG NO
[2024-05-24 15:02] LABS: Basophils Absolute Auto 0.1 X10*3/uL (0.0-0.2); Basophils Percent Auto 1.4 % (0-2); Eosinophils Absolute Auto 0.1 X10*3/uL (0.0-0.4); Eosinophils Percent Auto 2.3 % (0-4); Hematocrit 44.4 % (42.0-52.0); Imm Gran Abs Auto 0.01 X10*3/uL (0.00-0.03); Imm Gran Pct Auto 0.2 % (0.0-0.4); Lymphocytes Absolute Auto 1.5 X10*3/uL (1.2-4.9); Lymphocytes Percent Auto 34.7 % (20-40); Mean Corpuscular HGB Conc 33.8 g/dl (31.0-36.0); Mean Corpuscular Hemoglobin 30.3 pg (27.0-33.0); Mean Corpuscular Volume 89.7 fL (80.0-98.0); Mean Platelet Volume 10.5 fL (9.4-12.4); Monocytes Absolute Auto 0.3 X10*3/uL (0.1-1.2); Neutrophils Absolute Auto 2.3 x10*3/uL (2.0-8.3); Neutrophils Percent Auto 54.4 % (45-73); Platelet Count 186 X10*3/uL (160-400); Red Blood Count 4.95 X10*6/uL (4.60-5.80); Red Cell Distribution Width 12.6 % (11.0-16.0); White Blood Count 4.3 X10*3/uL (4.8-10.8)
[2024-05-24 15:25] LABS: Alanine Aminotransferase 35 U/L (0-40); Albumin Level 4.4 g/dL (3.5-5.0); Anion Gap 11 (12-20); Aspartate Amino Transferase 37 U/L (5-37); Bilirubin Direct 0.3 mg/dL (0.0-0.5); Bilirubin Total 1.7 mg/dL (0.0-1.0); Blood Urea Nitrogen 10 mg/dL (9-16); Calcium 9.3 mg/dL (8.4-10.2); Carbon Dioxide 25 mmol/L (22-29); Chloride 107 mmol/L (96-108); Creatinine Clr Calc Pharmacy 96.2; Estimated Glomerular Filt Rate > 60; Glucose Random 83 mg/dL (60-115); Magnesium 2.1 mg/dL (1.6-2.6); Potassium 4.3 mmol/L (3.3-5.1); Sodium 139 mmol/L (135-145); Troponin-I High Sensitivity < 2.7 ng/L (<3.5-35.0)
[2024-05-24 15:42] LABS: Alkaline Phosphatase 78 U/L (39-117)
[2024-05-24 17:24] VITALS: BP 131/84; PULSE 66; RESP 18; TEMP 36.4; O2SAT 99
[2024-05-24] MEDS: Acetaminophen 325 MG TABLET 650 MG PO (17:28)
[2024-05-24 18:13] LABS: Troponin-I High Sensitivity < 2.7 ng/L (<3.5-35.0)
[2024-05-24 20:00] VITALS: BP 129/69; PULSE 64; RESP 16; TEMP 36.6; O2SAT 98
[2024-05-24 20:27] LABS: C Reactive Protein 0.15 mg/dL (< or = 0.50)
[2024-05-24 21:02] LABS: Erythrocyte Sedimentation Rate 4 MM/HR (0-15)
[2024-05-24] MEDS: diphenhydrAMINE HCL 25 MG CAPSULE PO (21:18)
[2024-05-24] MEDS: Ketorolac Tromethamine 15 MG/ML VIAL IVPUSH (21:18)
[2024-05-24] MEDS: Metoclopramide HCl 10 MG/2 ML VIAL IVPUSH (21:18)
[2024-05-24] MEDS: 0.9 % Sodium Chloride 1,000 ML 999 ML IV (21:18)
[2024-05-24 22:11] VITALS: BP 116/76; PULSE 63; RESP 12; TEMP 36.7; O2SAT 98
[2024-05-24 22:30] LABS: Influenza A PCR NEGATIVE (Negative); Influenza B PCR NEGATIVE (Negative); Resp Syncy Virus RNA Qual PCR NEGATIVE (Negative); SARS COV2 PCR INHOUSE NEGATIVE (Negative)
[2024-05-24 22:51] VITALS: BP 116/76; PULSE 63; RESP 12; TEMP 36.7; O2SAT 98
== END 2024-05-24 22:51 | disposition home or self-care (01) ==
PROVIDERS: Physician Assistant Medical; Emergency Provider Emergency Medicine; PCP Nurse Practitioner Primary Care
DX: M26.601 Right temporomandibular joint disorder, unspecified (principal); F17.210 Nicotine dependence, cigarettes, uncomplicated; Z03.818 Encounter for observation for suspected exposure to other biological agents ruled out; R51.9 Headache, unspecified; F11.20 Opioid dependence, uncomplicated
CPT/HCPCS: 0241U; 36415; 70450; 70486; 80048; 80076; 83735; 84484; 85025; 85652; 86140; 93005; 96361; 96374; 96375; 99284; J1885; J2765

== ENCOUNTER → 2024-05-24 12:55 | Outpatient (BNV) | payer OTHER, SELFPAY | PROVIDERS: PCP Nurse Practitioner Primary Care; Visit Provider Internal Medicine | DX: R68.84 Jaw pain (principal) | CPT/HCPCS: 93010 ==

== ENCOUNTER → 2024-05-24 20:13 | Outpatient (BNV) | payer OTHER, SELFPAY | PROVIDERS: Emergency Provider Emergency Medicine; PCP Nurse Practitioner Primary Care; Visit Provider Radiology Diagnostic Radiology | DX: R68.84 Jaw pain (principal); R51.9 Headache, unspecified | CPT/HCPCS: 70450; 70486 ==

== ENCOUNTER 2024-05-26 12:53 | Outpatient (AMB) | payer OTHER, SELFPAY ==
--- NOTE | 2024-05-26 13:15 | MHC.OFFVIS ---
Vital Signs 05/26/24 13:29 Height 5 ft 11 in Weight 165 lb 5.547 oz BMI 23.1 BP 111/72 Blood Pressure Location Lt brachial Position Sitting Pulse 76 Intake Visit Reasons: 2 month follow up r/s from 01/27 Intake Note: Christophe presents in the office as a 2 month follow up. CC: He states that he is having some pains in the stomach. He has a bloating at times and other times it is a pain. He also states that he always has issues with constipation. Lab Aid Required: Yes Lab Aid Name: Gela Allergies No Known Allergies Allergy (Verified 05/26/24 13:32) Medication List - Last Reconciled 05/26/24 by Essie Larry MD buprenorphine-naloxone 8-2 mg (Suboxone) 1 film buccal DAILY ketoconazole 2% 1 appl topical quetiapine mg PO HPI HPI 2 month follow up r/s from 01/27: Details: GI CLINIC VISIT FOR THIS 68 YEAR OLD SWEDISH speaking male followed in GI for liver cirrhosis, history of hepatitis-C (treated) and abnormal CT scan of the colon. (pt was last seen in the GI clinic in May, 2022) ? CHRONIC ILLNESSES:?Anxiety, hepatitis-C genotype 1b since , depression, seborrheic dermatitis, seizures, opioid type dependence, constipation and for hydration. ??TODAY'S VISIT CC: He states that he is having some pains in the stomach. He has a bloating at times and other times it is a pain. He also states that he always has issues with constipation. [facility] Swedish english language arts teacher, Mannyemarys Lab and abdominal ultrasound results were reviewed with the patient. Intermittent bloating and sometimes notes pressure in the LUQ pain. Pain resolves when he sits straight up. Feels full after eating and sometimes aimee-umblical pain after eating. Continues to have constipation. Discontinued all medicaltions except seroquel and suboxone. 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 PAST VISIT: Usually takes soup daily. Had soup yesterday and noted upper abd pain followed by diarrhea and pain resolved after half an hour Has a BM twice a week Complains of LUQ which resolves after he has a BM CC: he states that yesterday he was having symptoms - he was having stomach pains and diarrhea. It was a severe pain in the stomach. Has been doing pretty good Notes mild abdominal pain below the belly button after eating and resolves quickly. Sometimes he does not go for 3 days and not taking any medications. Abdominal pain gets worse when he sits and stomach becomes tight. Constipation is better. Has a BM every morning. Feels full and bloated even when he does not eat anything. Has pain on the left side of the chest and nipple and radiates to the abdomen. Continues to have abd pain - LUQ quadrant and moves to the right side. Complains of constipation and has a BM twice a week. Notes abd pain when he strains. ABD CT scan results reviewed. Feeling a little better though still has some pain in the stomach Denies abdominal pain - feels his stomach is inflamed. Feels full although he did not eat today. Feels full after drinking coffee sometimes. Patient denies bloating or abdominal distension. Denies fever, chills, nausea or vomiting Denies diarrhea, constipation, black stools or rectal bleeding Has been gaining weight. Patient states he is experiencing abdominal pain and inflammation for the past week. He would like to be seen Had lab tests done at [facility] recently US results reviewed with the patient. Not taking any medications for constipation and doing OK. Has a BM every other da ?LABS IN [facility]:? LABS FROM [facility] WERE REVIEWED AND SCANNED INTO PT'S CHART: 02/28/20 H & H of 14 & 39.9, PLT 217, normal LFTs.? HCV RNA < 15 05/06/19 Normal CBC, PLT 202, total bilirubin 1.8, AST 38, ALT 36, ap 76, ? 07/2018 Hepatitis C viral load less than 1.18. ? 03/2018 liver fibrosis score of 0.76, liver fibrosis stage of F4. ?IMAGING STUDIES: 06/2022 ABD US SHOWED: Diffusely increased liver echogenicity. This is a nonspecific finding but most suggestive of hepatic steatosis. Correlation with liver enzymes recommended. 06/2021 GASTRIC EMPTYING STUDY WAS NORMAL. 12/20/[address] SCAN SHOWED: Unremarkable liver with and without contrast .? Mild constipation. 05/08/20 ABD US SHOWED: LIVER:? The liver is normal in size. The liver contour is normal. There is diffuse increased liver echogenicity. No focal hepatic lesion. There is no intrahepatic biliary duct dilatation seen. 11/30/19 ? Abdominal CT scan showed mild constipation and no acute process. ? 12/[address] scan showed: ? LIVER, GALLBLADDER, AND BILIARY TREE: The liver is normal in size, ? shape, and attenuation. No focal hepatic lesion or biliary ductal ? dilatation is present. Gallbladder is contracted. There is no bile duct dilatation. ? PANCREAS: Unremarkable. ? SPLEEN: Unremarkable. ? GASTROINTESTINAL TRACT: The small and large bowel are unremarkable. ? The appendix is nonvisualized. There is no inflammation of the mesentery. ? ?ENDOSCOPIC STUDIES: ? 03/2023 COLONOSCOPY SHOWED: Two small hyperplastic polyps removed Moderate diverticulosis seen in the left colon Moderate hemorrhoids on retroflexed exam. Plan: Repeat Colonoscopy was advised in 5 years due to a hx of adenomatous colon polyps. 08/14/20 EGD SHOWED: ESOPHAGUS:? Focal esophagitis STOMACH:? Diffuse gastritis BIOPSIES SHOWED: A.? Stomach, antrum, biopsy:? Antral-type and oxyntic mucosa with moderate chronic inactive inflammation; no Helicobacter organisms seen. B.? Stomach, body, biopsy:? Oxyntic mucosa with moderate chronic inactive inflammation; no Helicobacter organisms seen. 12/16/2019 COLONOSCOPY SHOWED: Three polyps removed Moderate diverticulosis seen in the left colon Moderate hemorrhoids on retroflexed exam. Plan: Patient has an appointment on 01/13/20 in the GI Clinic with Essie Larry M.D.- Repeat Colonoscopy interval based on path results in 3 years if polyps are adenomatous and 10 years if polyps are hyperplastic. Above findings were reviewed with the patient and colon polyps and diverticulosis handouts were given in the discharge area BIOPSIES SHOWED: A. Cecum, polypectomy: Tubular adenoma; no high grade dysplasia or carcinoma seen. B. Colon, sigmoid, polypectomy: Tubular adenoma; no high grade dysplasia or carcinoma seen. C. Rectum, polypectomy: Hyperplastic mucosal polyp. [facility] Medical History Rib pain on left side Chronic hepatitis C virus genotype 1a infection Cirrhosis of liver without ascites History of adenomatous polyp of colon Combined drug dependence excluding opioids Chronic constipation Seizures Anxiety Depression Surgical History History of pterygium excision History of prostate surgery Hx of cystoscopy Hx of endoscopy History of colonoscopy History of hernia repair Family History Father No problems noted. Mother No problems noted. 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 Review of Systems Const All systems reviewed & are unremarkable except as noted in HPI and below Physical Exam Vital Signs: Last Vital Signs Pulse 76 05/26/24 13:29 BP 111/72 05/26/24 13:29 BMI result Body Mass Index 23.1 Const General: healthy appearing and no acute distress Nutritional Appearance: average body habitus Orientation/consciousness: patient oriented x3 Limitations: language barrier HEENT Head: Yes normal to inspection Ears: hearing grossly normal bilaterally Eyes Sclerae: sclerae normal Pupils: Equal, round and reactive pupils present Neck Neck: Yes normal visual inspection Chest Chest palpation & inspection: normal inspection of the chest Resp Effort & Inspection: normal respiratory effort Auscultation: clear to auscultation bilaterally Cardio Palpation: normal PMI Rate: regular rate Rhythm: regular rhythm Heart sounds: S1 normal heart sound present, S2 normal heart sound present and no murmurs GI Palpation (GI): Soft to palpation, nontender and No hepatosplenomegaly present Auscultation: normal bowel sounds Rectal Exam - Male: Yes deferred Skin General skin exam: no rashes or lesions noted Neuro General: patient oriented x3, gait normal and moves all extremities Cranial nerves: Yes Equal, round and reactive pupils present Psych Appearance: grossly normal Mental Status: mental status grossly normal Assessment & Plan Assessment & Plan (1) Chronic constipation: Code(s): K59.09 - Other constipation Category: Medical (2) History of adenomatous polyp of colon: Comment: 12/16/19 colonoscopy showed diverticulosis and 2 adenomatous polyps were removed. Repeat colonoscopy is advised in 3 years. Due 12/2022 Code(s): Z86.010 - Personal history of colon polyps Category: Medical (3) Cirrhosis of liver without ascites: Code(s): K74.60 - Unspecified cirrhosis of liver Category: Medical (4) Early satiety: Code(s): R68.81 - Early satiety Category: Medical (5) Abdominal pain: Code(s): R10.9 - Unspecified abdominal pain Category: Medical Plan 68 YM with Anxiety, Hepatitis C-genotype 1b since , depression, seborrheic dermatitis, seizures, opioid type dependency, combinations of drug dependence excluding opioid, constipation followed in GI for Liver cirrhosis and a history of Hep C infection. Chronic Hepatitis C (genotype 1 b) status post treatment with Epclusa x 3 months in 2018. FU labs confirmed Hep C eradication. Recurrent Hep C infection with genotype 1a.? He was re-treated with Mavyret. Pt with compensated cirrhosis with F4 fibrosis on Liver fibrosis test. No varices seen on last EGD. Plan is to continue to monitor labs and liver imaging studies every 6 months. 11/30/[address] scan ? Showed mild constipation and no acute problems. 05/2020 abd US showed diffuse increased liver echogenicity, no focal hepatic lesion and no intrahepatic biliary duct dilatation seen. Patient with complaints of early satiety possibly related to peptic ulcer disease versus slow gastric emptying due to Suboxone. Patient was advised to start omeprazole 20 mg once daily and schedule an upper endoscopy. 08/14/20 EGD showed diffuse gastritis and focal esophagitis, gastric biopsies were negative for Helicobacter pylori. Abdominal CT scan was normal except for residual stools. 05/22/22 Patient was advised to start Miralax for constipation and schedule an abd US and a colonoscopy 11/11/23 LUQ pain likely due to constipation Pt advised to have labs and an ABd US Start Linzess 15 mcg daily for constipation 05/26/24 LUQ pain likely due to constipation Advised to take Linzess 145 mcg daily Follow up in 3 months Medications: New linaclotide (Linzess) 145 mcg PO QAM 60 days 60 caps 3RF K59.09 - Other constipation Coding Level of Care Code Est Pt Level 4 (81460) Diagnoses Chronic constipation K59.09 History of adenomatous polyp of colon Z86.010 Cirrhosis of liver without ascites K74.60 Early satiety R68.81 Abdominal pain R10.9 Time Spent (min) 24
[2024-05-26 13:29] VITALS: BP 111/72; PULSE 76; BMI 23.1
--- OUTSIDE RECORDS SUMMARY | 2024-05-26 13:47 | XMS_ITS | Encounter Summary ---
Author Organization [employer] Address [address] [facility] [address] [place] [address] Care Team Providers Care Machine Hand Name Role Phone Waleska Baeza JUSTIN Primary Care Provider [phone] Reason for Visit * Reason Comments RC Recovery Supports Encounter Details Date Type Department Care Team ([facility] st Contact Info) Description 05/18/2024 Patient Outreach [facility] MEDICINE [address] [place], [place] [phone] Nav Carcamo [address] [place] [address] Recovery Supports Social History Tobacco Use Types Packs/Day Years Used Date Smoking Tobacco: Every Day Cigarettes Passive Smoke Exposure: Past Smokeless Tobacco: Never Comments:Smoking 2 cigarette s/daily Alcohol Use Standard Drinks/Week Comments Never 0 (1 standard drink = 0.6 oz pur e alcohol) Depression Answer Date Recorded Patient Health Questionnaire-9 Score 3 04/21/2024 Patient Health Questionnaire-9 Score 3 04/21/2024 Last PHQ-9: Questionnaire Data Not on file 0 04/21/2024 Housing Stability Answer Date Recorded What is your housing situation today? I have santiago greenberg 05/04/[address] you li ve. Do you have problems with any of the following? None of the above 05/04/2024 Food Insecurity Answer Date Recorded Within the past 12 months, y ou worried that your food would run out before you got money to buy more: Never True 05/04/2024 Within the past 12 months,th e food you bought just didn't last and you didn't have enough money to get more: Never True Transportation Answer Date Recorded In the past 12 months, has l ack of transportation kept you from medical appts, meetings, work or from getting things needed for daily living? No 05/04/2024 Utilities Answer Date Recorded In the past 12 months, has t he electric, gas, oil or water company threatened to shut off services in your home? No 05/04/2024 Depression Answer Date Recorded Patient Health Questionnaire-2 Score 3 04/21/2024 Internet Access Answer Date Recorded Internet Access Q1 Yes 05/04/2024 Internet Access Q2 Not on file 05/04/2024 Sex and Gender Information Value Date Recorded Sex Assigned at Male 02/03/2022 10:21 AM EDT Legal Sex Male 10:21 AM EDT Gender Identity Male 02/03/2022 10:21 AM EDT Sexual Orientation Choose not to disclose 2021 10:21 AM EDT documented as of this encounter Progress Notes * Nav Carcamo - 05/18/2024 11:59 PM EST I met with Shaggy today. Setting: in person at [facility] Recovery Wellness Goals worked on: Physical Health/Mental Health, Social Stability, and Spiritual Wellness Action taken/next steps: Offered person centered recovery support and Supported spiritual needs Additional comments: Shaggy came to the Recovery Center after his appointment and stopped by to greet me. Shaggy is in themaintenance stage. I asked him if I could assist him, and the PT indicated no, that he would call or come to the center if he needed support. Nav Carcamo documented in this encounter Plan of Treatment Upcoming Encounters Date Type Department Care Team (Late st Contact Info) Description 05/30/2024 10:30 AM EST Office Visit [facility] OPTOMETRY [address] [place] [address] Khloe Amezcua, OD [address] [place] [address] 06/09/2024 1:15 PM EST Office Visit [facility] MEDICINE [address] [place] [address] Waleska Baeza, JUSTIN [address] [place] [address] 06/15/2024 9:15 AM EDT Office Visit [facility] MEDICINE [address] [place] [address] Montse Quintanilla MD [address] [place] [address] documented as of this encounter Visit Diagnoses Not on filedocumented in this encounter Additional Health Concerns Assessment Noted Time PHQ-9 Depression Total Score: 3 04/21/19 25 1:02 PM EST documented as of this encounter Care Teams Machine Hand Relationship Specialty Start Date End Date Waleska Baeza ANP [address] [place] [address] PCP - General Family Medicine 08/23/19 documented as of this encounter
--- OUTSIDE RECORDS SUMMARY | 2024-05-26 13:47 | XMS_ITS | Encounter Summary ---
Author Organization [employer] Address [address] [facility] [address] [place] [address] Care Team Providers Care Medical Detail Representative Name Role Phone Waleska Baeza JUSTIN Primary Care Provider [phone] Reason for Visit * Reason Comments RC Recovery Supports Encounter Details Date Type Department Care Team ([facility] st Contact Info) Description 05/10/2024 Patient Outreach [facility] MEDICINE [address] [place], [place] [phone] Nav Carcamo [address] [place] [address] Recovery Supports Social History Tobacco Use Types [...] encounter Progress Notes * Nav Carcamo - 05/10/2024 11:16 AM EST I met with Shaggy today. Setting: in person at [facility] Recovery Wellness Goals worked on: Social Stability Action taken/next steps: Offered person centered recovery support Additional comments: Shaggy came to the recovery center ,pt ask me if if I can provide his upcoming appointments and I facilitated all his next appointments. Nav Carcamo documented in this encounter Plan of Treatment Upcoming Encounters Date Type Department Care Team (Late st Contact Info) Description 05/30/2024 10:30 AM EST Office Visit [facility] OPTOMETRY [address] [place] [address] Khloe Amezcua, OD [address] [place] [address] 06/09/2024 1:15 PM EST Office Visit [facility] MEDICINE [address] [place] [address] Waleska Baeza ANP [address] [place] [address] 06/15/2024 9:15 AM EDT Office Visit [address] [address] Montse Quintanilla MD [address] [place] [address] documented as of this encounter Visit Diagnoses Not on filedocumented in this encounter Additional Health Concerns Assessment Noted Time PHQ-9 Depression Total Score: 3 04/21/19 25 1:02 PM EST documented as of this encounter Care Teams Medical Detail Representative Relationship Specialty Start Date End Date Waleska Baeza ANP [address] [place] [address] PCP - General Family Medicine 08/23/19 documented as of this encounter
--- OUTSIDE RECORDS SUMMARY | 2024-05-26 13:47 | XMS_ITS | Encounter Summary ---
Author Organization [employer] Address [address] [facility] 7[address] [place] [address] Care Team Providers Care Perch Machine Inspector Name Role Phone Waleska Baeza JUSTIN Primary Care Provider [phone] Reason for Visit * Reason Onset Date Comments Med Refill 05/11/2024 Encounter Details Date Type Department Care Team ([facility] st Contact Info) Description 05/11/2024 Refill [facility] MEDICINE [address] [place] [address] 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 RN [address] [place] [address] Opioid type dependence, continuous (CMS/HCC) Social History Tobacco Use Types Packs/Day Years [...] AM EDT documented as of this encounter Plan of Treatment Upcoming Encounters Date Type Department Care Team (Late st Contact Info) Description 05/30/2024 10:30 AM EST Office Visit [facility] OPTOMETRY [address] [place] [address] Khloe Amezcua, NELSY [address] [place] [address] 06/09/2024 1:15 PM EST Office Visit [facility] MEDICINE [address] [place] [address] Waleska Baeza ANP [address] [place] [address] 06/15/2024 9:15 AM EDT Office Visit [facility] MEDICINE [address] [place] [address] Montse Quintanilla MD [address] [place] [address] documented as of this encounter Visit Diagnoses Diagnosis Opioid type dependence, continuous (CMS/HCC) Opioid type dependence, continuous documented in this encounter Additional Health Concerns Assessment Noted Time PHQ-9 Depression Total Score: 3 04/21/19 25 1:02 PM EST documented as of this encounter Care Teams Perch Machine Inspector Relationship Specialty Start Date End Date Waleska Baeza ANP [address] [place] [phone] PCP - General Family Medicine 08/23/19 documented as of this encounter
--- OUTSIDE RECORDS SUMMARY | 2024-05-26 13:47 | XMS_ITS | Encounter Summary ---
Author Organization [employer] Address [address] [facility] [address] [place] [address] Care Team Providers Care Engineer Byproduct Name Role Phone Waleska Baeza JUSTIN Primary Care Provider Reason for Visit * Reason Comments RC Recovery Supports Encounter Details Date Type Department Care Team ([facility] st Contact Info) Description 05/25/2024 Patient Outreach [facility] MEDICINE [address] [place], [place] [phone] Nav Carcamo [address] [place], [place] [phone] Recovery Supports Social History Tobacco Use Types Packs/Day Years Used Date Smoking Tobacco: Every Day Cigarettes Passive Smoke Exposure: Current Smokeless Tobacco: Never Comments:Smoking 3 cigarette s/daily Alcohol Use Standard Drinks/Week Comments [...] of this encounter Progress Notes * Nav Carlos Alberto - 05/25/2024 11:19 AM EST I met with Shaggy today. Setting: in person at [facility] Recovery Wellness Goals worked on: Social Stability Action taken/next steps: Offered person centered recovery support Additional comments: Today, Shaggy presented himself to the recovery center. The patient mentioned that he was in the emergency room yesterday due to pain in part of his face. In the emergency room, they did some blood tests and gave him medication to take at home. I told Shaggy that if he needs support, he should call me or come to the center. Nav Carcamo documented in this encounter Plan of Treatment Upcoming Encounters Date Type Department Care Team (Late st Contact Info) Description 05/30/2024 10:30 AM EST Office Visit [facility] OPTOMETRY [address] [place] [address] Khloe Amezcua, OD [address] [place] [address] 06/09/2024 1:15 PM EST Office Visit [facility] MEDICINE [address] [place] [address] Waleska Baeza ANP [address] [place] [address] 06/15/2024 9:15 AM EDT Office Visit [facility] MEDICINE [address] [place] [address] Montse Quintanilla MD [address] [place] [address] documented as of this encounter Visit Diagnoses Not on filedocumented in this encounter Additional Health Concerns Assessment Noted Time PHQ-9 Depression Total Score: 3 04/21/19 25 1:02 PM EST documented as of this encounter Care Teams Engineer Byproduct Relationship Specialty Start Date End Date Waleska Baeza ANP [address] [place] [address] PCP - General Family Medicine 08/23/19 documented as of this encounter
--- OUTSIDE RECORDS SUMMARY | 2024-05-26 13:47 | XMS_ITS | Encounter Summary ---
Author Organization [employer] Address 75 [facility] 7t [place] [address] Care Team Providers Care Shot Hole Driller Name Role Phone Waleska Baeza JUSTIN Primary Care Provider [phone] Reason for Visit * Reason Comments Headache Facial Pain Encounter Details Date Type Department Care Team ([facility] st Contact Info) Description 05/24/2024 10:40 AM EST Office Visit [facility] [address] [place] [address] [phone] Cyrus Castro MD [address] [place] [address] Acute intractable headache, unspecified headache type (Primary Dx); Neck pain on right side Social History Tobacco Use Types Packs/Day Years [...] AM EDT documented as of this encounter Last Filed Vital Signs Vital Sign Reading Time Taken Comments Blood Pressure 117/79 05/24/2024 11:16 AM EST Pulse 73 05/24/2024 11:16 AM EST Temperature 36.6 ??C (97.8 ??F) 05/24/2024 11:[address] Respiratory Rate 17 05/24/2024 11:16 AM EST Oxygen Saturation 98% 05/24/2024 11:16 AM EST Inhaled Oxygen Concentration - - Weight 80.7 kg (178 lb) 05/24/2024 11:16 AM EST Height - - Body Mass Index 24.83 05/21/2024 10:11 AM EST documented in this encounter Progress Notes * Cyrus Castro MD - 05/24/2024 10:40 AM EST Subjective Patient ID: Shaggy Saucedo is a 68 y.o. male. 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 Prescribed Augmentin. Advised to f/u with PCP 1 week later. At PCP visit 4 days ago for ongoing jaw pain the Assessment /Plan is not visible. Shaggy was seen again in [facility] 3 days ago for 1 week h/o headache and tactile fever. Negative rapid Covid and Influenza tests. Advised Tylenol or ibuprofen prn. Sergio returns to [facility] today because of ongoing right jaw pain that he states started 3 weeks ago, nothing makes it worse (chewing doesn't make it worse). Also has ongoing headache in bitemporal area and frontal area. Also has tactile fever at about 4 PM and headache worsens. Tylenol and ibuprofen help minimally. Lives alone. Smokes 2 cigarettes/day. Has NRT. Not employed. No EtOH. In our Suboxone program. 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 Respiratory: Negative for shortness of breath. Cardiovascular: Negative for chest pain. Gastrointestinal: Negative for abdominal pain. Skin: Negative for rash. Neurological: Positive for headaches. Objective Physical Exam Constitutional: Appearance: Normal appearance. HENT: Right Ear: Tympanic membrane, ear canal and external ear normal. Left Ear: Tympanic membrane, ear canal and external ear normal. Nose: Nose normal. Mouth/Throat: Mouth: Mucous membranes are moist. Pharynx: Oropharynx is clear. Eyes: Conjunctiva/sclera: Conjunctivae normal. Pupils: Pupils are equal, round, and reactive to light. Neck: Comments: Tenderness right submanbibular area Cardiovascular: Rate and Rhythm: Normal rate and regular rhythm. Heart sounds: No murmur heard. Pulmonary: Effort: Pulmonary effort is normal. Breath sounds: Normal breath sounds. Musculoskeletal: General: Normal range of motion. Cervical back: No tenderness. Skin: Findings: No rash. Neurological: Mental Status: He is alert. Gait: Gait is intact. Psychiatric: Mood and Affect: Mood normal. Behavior: Behavior normal. Procedures Assessment/Plan Diagnoses and all orders for this visit: Acute intractable headache, unspecified headache type ? Etiology. Having ongoing pain; this is his 4th [facility] office visit in 12 days. Referred to ED now. Neck pain on right side As above. Other orders - nicotine (Nicoderm CQ) 7 MG/24HR patch; Place 1 patch on the skin 1 (one) time each day at the same time. - nicotine (Nicoderm CQ) 14 MG/24HR patch; Place 1 patch on the skin 1 (one) time each day at the same time. - nicotine polacrilex (Commit) 2 MG lozenge; Dissolve 1 lozenge (2 mg) in the mouth if needed for smoking cessation. documented in this encounter Plan of Treatment Upcoming Encounters Date Type Department Care Team (Late st Contact Info) Description 05/30/2024 10:30 AM EST Office Visit [facility] [address] [place] [address] Khloe Amezcua, OD [address] [place] [address] 06/09/2024 1:15 PM EST Office Visit [facility] [address] [place] [address] Waleska Baeza ANP [address] [place] [address] 06/15/2024 9:15 AM EDT Office Visit [address] [address] Montse Quintanilla MD [address] [place] [address] documented as of this encounter Visit Diagnoses Diagnosis Acute intractable headache, unspecified headache type- Primary Neck pain on right side documented in this encounter Additional Health Concerns Assessment Noted Time PHQ-9 Depression Total Score: 3 04/21/19 25 1:02 PM EST documented as of this encounter Care Teams Shot Hole Driller Relationship Specialty Start Date End Date Waleska Baeza ANP [address] [place] [address] PCP - General Family Medicine 08/23/19 documented as of this encounter
--- OUTSIDE RECORDS SUMMARY | 2024-05-26 13:47 | XMS_ITS | Encounter Summary ---
Author Organization [employer] Address 75 [facility] 7t [place] [address] Care Team Providers Care Digital Developer Name Role Phone Waleska Baeza JUSTIN Primary Care Provider [phone] Encounter Details Date Type Department Care Team (Late st Contact Info) Description 05/24/[address] [facility] [address] [place], [place] [phone] Nav Carcamo [address] [place], [place] [phone] Social History Tobacco Use Types Packs/Day Years [...] Progress Notes * Nav Carlos Alberto - 05/24/2024 9:37 AM EST I met with Shaggy today. Setting: in person at [facility] Recovery Wellness Goals worked on: Social Stability Action taken/next steps: Offered person centered recovery support and Attended alcohol and drug free activity Additional comments: Shaggy expressed having pain in his mouth that affects him and gives him pain in his head. I told the patient to go to the walk-in, but the patient insisted that he was here on Thursday. I recommendedthat he go to the emergency room since he has been experiencing the pain for about 4 weeks. Nav Carcamo documented in this encounter Plan of Treatment Upcoming Encounters Date Type Department Care Team (Late st Contact Info) Description 05/30/2024 10:30 AM EST Office Visit [facility] [address] [place] [address] Khloe Amezcua, OD [address] [place] [address] 06/09/2024 1:15 PM EST Office Visit [facility] [address] [place] [address] Waleska Baeza ANP [address] [place] [address] 06/15/2024 9:15 AM EDT Office Visit [address] [place] [address] Montse Quintanilla MD [address] [place] [address] documented as of this encounter Visit Diagnoses Not on filedocumented in this encounter Additional Health Concerns Assessment Noted Time PHQ-9 Depression Total Score: 3 04/21/19 25 1:02 PM EST documented as of this encounter Care Teams Digital Developer Relationship Specialty Start Date End Date Waleska Baeza ANP [address] [place] [address] PCP - General Family Medicine 08/23/19 documented as of this encounter
--- OUTSIDE RECORDS SUMMARY | 2024-05-26 13:47 | XMS_ITS | Encounter Summary ---
Author Organization [employer] Address [address] [facility] 7t [place] [address] Care Team Providers Care Print Controller Name Role Phone Waleska Baeza Primary Care Provider [phone] Encounter Details Date Type Department Care Team (Late Contact Info) Description 06/04/2022 Orders Only [facility] PED[facility] [address] [place], [place] [phone] Loretta Beltran LPN Social History Tobacco Use Types Packs/Day Years Used Date Smoking Tobacco: Former Cigarettes Smokeless Tobacco: Never Alcohol Use Standard Drinks/Week Comments Never 0 (1 standard drink = 0.6 oz pur e alcohol) Sex and Gender Information Value Date Recorded Sex Assigned at Male 02/03/2022 10:21 AM EDT Legal Sex Male 10:21 AM EDT Gender Identity Male 02/03/2022 10:21 AM EDT Sexual Orientation Choose not to disclose 2021 10:21 AM EDT COVID-19 Exposure Response Date Recorded In the last 10 days, have yo u been in contact with someone who was confirmed or suspected to have Coronavirus/COVID-19? No / Unsure 06/05/2022 10:53 AM EST documented as of this encounter Plan of Treatment Upcoming Encounters Date Type Department Care Team (Late st Contact Info) Description 05/30/2024 10:30 AM EST Office Visit [facility] [address] [place] [address] Seven, Khloe, OD [address] [place] [address] 06/09/2024 1:15 PM EST Office Visit [facility] [address] [place] [address] Waleska Baeza ANP [address] [place] [address] 06/15/2024 9:15 AM EDT Office Visit [facility] [address] [place] [address] Montse Quintanilla MD [address] [place] [address] documented as of this encounter Visit Diagnoses Not on filedocumented in this encounter Care Teams Print Controller Relationship Specialty Start Date End Date Waleska Baeza ANP [address] [place] [address] PCP - General Family Medicine 08/23/19 documented as of this encounter
--- OUTSIDE RECORDS SUMMARY | 2024-05-26 13:47 | XMS_ITS | Encounter Summary ---
Author Organization [employer] Address 75 [facility] 7t [place] [address] Care Team Providers Care Goldsmith Apprentice Name Role Phone Waleska Baeza Primary Care Provider [phone] Reason for Visit * Reason Onset Date Comments Medication Question 05/24/2024 Encounter Details Date Type Department Care Team ([facility] st Contact Info) Description 05/24/2024 Telephone [facility] [address] [place], [place] [phone] Waleska Baeza ANP [address] [place], [place] [phone] Medication Question Social History Tobacco Use Types Packs/Day Years [...] AM EDT documented as of this encounter Miscellaneous Notes * Telephone Encounter - Iwona Fuentes RN - 05/25/2024 10:20 AM EST 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 States that he used the ketoconazolecream intermittently (one day on, one day off) but it still caused burning sensation, per med list this was prescribed for seborrheic dermatitis. He is requesting to switch back to hydrocortisone 2.5% cream that he was prescribed by Dr Castro on 09/2022 and previously in [place] (from office visitnote). He showed publicity writer a photo of the preferred cream on his phone. Advised him to not use ketoconazole in meantime and that message would be sent to PCP. Pt verbalized understanding. * Telephone Encounter - Cassandra Sultana RN - 05/24/2024 12:13 PM EST TC placed to pt and LVM to call back the office in regards to medication concerns * Telephone Encounter - Kelly Sweet - 05/24/2024 8:29 AM EST Patient walked in requesting to change medication. Patient wants to change the ketoconazole for Hydrocortisone. The Ketoconazole michel his face Patient uses cream for face only. documented in this encounter Plan of Treatment Upcoming Encounters Date Type Department Care Team (Late st Contact Info) Description 05/30/2024 10:30 AM EST Office Visit [facility] [address] [place] [address] Khloe Amezcua, OD [address] [place] [address] 06/09/2024 1:15 PM EST Office Visit [facility] [address] [place] [address] Waleska Baeza ANP [address] [place] [address] 06/15/2024 9:15 AM EDT Office Visit [facility] [address] [place] [address] Montse Quintanilla MD [address] [place] [address] documented as of this encounter Visit Diagnoses Not on filedocumented in this encounter Additional Health Concerns Assessment Noted Time PHQ-9 Depression Total Score: 3 04/21/19 25 1:02 PM EST documented as of this encounter Care Teams Goldsmith Apprentice Relationship Specialty Start Date End Date Waleska Baeza ANP [address] [place] [id number] PCP - General Family Medicine 08/23/19 documented as of this encounter
--- OUTSIDE RECORDS SUMMARY | 2024-05-26 13:47 | XMS_ITS | Encounter Summary ---
Author Organization [employer] Address [address] [facility] 7t [place] [address] Care Team Providers Care Corporate Fitness Program Coordinator Name Role Phone Waleska Baeza JUSTIN Primary Care Provider [phone] Reason for Visit * Reason Comments [facility] Recovery Supports Encounter Details Date Type Department Care Team (Late st Contact Info) Description 05/26/2024 Patient Outreach [facility] [address] [place] [address] Fazal Chang Recovery Supports Social History Tobacco Use Types [...] as of this encounter Progress Notes * Fazal Chang - 05/26/2024 11:14 AM EST I met with Shaggy today. Setting: in person at [facility] Goals worked on: Social Stability Action taken/next steps: Attended alcohol and drug free activity Additional comments: Today, the participant Shaggy Concepcion was at the recovery center. Fazal Chang documented in this encounter Plan of Treatment Upcoming Encounters Date Type Department Care Team (Late st Contact Info) Description 05/30/2024 10:30 AM EST Office Visit [facility] [address] [place] [address] Khloe Amezcua, OD [address] [place] [address] 06/09/2024 1:15 PM EST Office Visit [facility] [address] [place] [address] Waleska Baeza ANP [address] [place] [address] 06/15/2024 9:15 AM EDT Office Visit [facility] [address] [place] [address] Montse Quintanilla MD [address] [place] [address] documented as of this encounter Visit Diagnoses Not on filedocumented in this encounter Additional Health Concerns Assessment Noted Time PHQ-9 Depression Total Score: 3 04/21/19 25 1:02 PM EST documented as of this encounter Care Teams Corporate Fitness Program Coordinator Relationship Specialty Start Date End Date Waleska Baeza ANP [address] [place] [address] PCP - General Family Medicine 08/23/19 documented as of this encounter
--- OUTSIDE RECORDS SUMMARY | 2024-05-26 13:47 | XMS_ITS | Encounter Summary ---
Author Organization [employer] Address [address] [place] [address] 7t [place] [address] Care Team Providers Care Chief Commercial Officer Name Role Phone Waleska Baeza Primary Care Provider [phone] Reason for Visit * Reason Comments Follow-up dyslipidenia Encounter Details Date Type Department Care Team ([facility] st Contact Info) Description 05/17/2024 1:15 PM EST Office Visit [facility] [address] [place], [place] [phone] Waleska Baeza ANP [address] [place] [address] Dyslipidemia (Primary Dx); Cirrhosis of liver without ascites, unspecified hepatic cirrhosis type (CMS/HCC); Portal hypertensive gastropathy (CMS/HCC) (CMS/HCC); Jaw pain; Depressive disorder; Insomnia, unspecified type Social History Tobacco Use Types Packs/Day Years [...] Sign Reading Time Taken Comments Blood Pressure 139/86 05/17/2024 1:07 PM EST Pulse 88 05/17/2024 1:07 PM EST Temperature 36.3 ??C (97.4 ??F) 05/17/2024 1:[address] Respiratory Rate 18 05/17/2024 1:07 PM EST Oxygen Saturation 99% 05/17/2024 1:07 PM EST Inhaled Oxygen Concentration - - Weight 79.9 kg (176 lb 3.2 oz) 05/17/2024 1:07 P M EST Height - - Body Mass Index 24.57 01/08/2024 1:50 PM EDT documented in this encounter Plan of Treatment Upcoming Encounters Date Type Department Care Team (Late st Contact Info) Description 05/30/2024 10:30 AM EST Office Visit [facility] [address] [place] [address] Seven, Khloe, OD [address] [place] [address] 06/09/2024 1:15 PM EST Office Visit [facility] [address] [place] [address] Waleska Baeza ANP [address] [place] [address] 06/15/2024 9:15 AM EDT Office Visit [facility] [address] [place], [place] [phone] Montse Quintanilla MD [address] [place], [place] [phone] Scheduled Orders Name Type Priority Associated Diagnoses Orde r Schedule Creatine Kinase Isoenzymes (CK Isoenzymes) w/ Total CK Lab Routine Dyslipidemia Expected: 06/14/2024 (Approximate), Expires: 05/17/2025 Lipid Panel, Standard Lab Routine Dyslipidemia Expected: 06/14/2024 (Approximate), Expires: 05/17/2025 XR Temporomandiular Joint Open and Closed Bilateral Imaging Routine Jaw pain Expected: 05/17/2024, Expires: 05/17/2025 documented as of this encounter Visit Diagnoses Diagnosis Dyslipidemia- Primary Other and unspecified hyperlipidemia Cirrhosis of liver without ascites, unspecified hepatic cirrhosis type (CMS/HCC) Portal hypertensive gastropathy (CMS/HCC) (CMS/HCC) Jaw pain Depressive disorder Depressive disorder, not elsewhere classified Insomnia, unspecified type documented in this encounter Additional Health Concerns Assessment Noted Time PHQ-9 Depression Total Score: 3 04/21/19 25 1:02 PM EST documented as of this encounter Care Teams Chief Commercial Officer Relationship Specialty Start Date End Date Waleska Baeza ANP [address] [place] [address] PCP - General Family Medicine 08/23/19 documented as of this encounter
--- OUTSIDE RECORDS SUMMARY | 2024-05-26 13:47 | XMS_ITS | Encounter Summary ---
Author Organization [employer] Address 75 [facility] 7t [place] [address] Care Team Providers Care Implementation Project Manager Name Role Phone Waleska Baeza Primary Care Provider [phone] Encounter Details Date Type Department Care Team (Latest Contact Info) Description 05/18/2024 Travel Social History Tobacco Use Types Packs/Day Years [...] Description 05/30/2024 10:30 AM EST Office Visit [facility] OPT[facility] [address] [place] [address] Khloe Amezcua, NELSY [address] [place] [address] 06/09/2024 1:15 PM EST Office Visit [facility] [address] [place] [address] Waleska Baeza ANP [address] [place] [address] 06/15/2024 9:15 AM EDT Office Visit [address] [address] Montse Quintanilla MD [address] [place] [address] documented as of this encounter Visit Diagnoses Not on filedocumented in this encounter Additional Health Concerns Assessment Noted Time PHQ-9 Depression Total Score: 3 04/21/19 25 1:02 PM EST documented as of this encounter Care Teams Implementation Project Manager Relationship Specialty Start Date End Date Waleska Baeza ANP [address] [place] [address] PCP - General Family Medicine 08/23/19 documented as of this encounter
--- OUTSIDE RECORDS SUMMARY | 2024-05-26 13:47 | XMS_ITS | Encounter Summary ---
Author Organization [employer] Address 75 [facility] 7t [place] [address] Care Team Providers Care Cloth Neutralizer Name Role Phone Waleska Baeza JUSTIN Primary Care Provider [phone] Reason for Visit * Reason Onset Date Comments OBAT Communication 05/26/2024 Encounter Details Date Type Department Care Team ([facility] st Contact Info) Description 05/26/2024 Telephone [facility] [address] [place] [address] 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 RN [address] [place] [address] OBAT Communication Social History Tobacco Use Types Packs/Day Years [...] encounter Miscellaneous Notes * Telephone Encounter - 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 RN - 05/26/2024 11:22 AM EST Pt walked in and spoke with SANDY Gonzales about dental concerns regarding 1) overnight babysitter and 2) dentures. RN reached out to dental employment specialist/program manager Lakeisha Combs for help determining plan of care. documented in this encounter Plan of Treatment Upcoming Encounters Date Type Department Care Team (Late st Contact Info) Description 05/30/2024 10:30 AM EST Office Visit [facility] OPT[facility] [address] [place] [address] Khloe Amezcua, OD [address] [place] [address] 06/09/2024 1:15 PM EST Office Visit [facility] [address] [place] [address] Waleska Baeza ANP [address] [place] [address] 06/15/2024 9:15 AM EDT Office Visit [facility] [address] [place] [address] Montse Quintanilla MD [address] [place] [address] documented as of this encounter Visit Diagnoses Not on filedocumented in this encounter Additional Health Concerns Assessment Noted Time PHQ-9 Depression Total Score: 3 04/21/19 25 1:02 PM EST documented as of this encounter Care Teams Cloth Neutralizer Relationship Specialty Start Date End Date Waleska Baeza ANP [address] [place] [address] PCP - General Family Medicine 08/23/19 documented as of this encounter
--- OUTSIDE RECORDS SUMMARY | 2024-05-26 13:47 | XMS_ITS | Encounter Summary ---
Author Organization [employer] Address [address] [place] [address] 7[address] [place] [address] Care Team Providers Care Technical Internship Name Role Phone Waleska Baeza Primary Care Provider [phone] Reason for Visit * Reason Comments OBAT Encounter Details Date Type Department Care Team (Latest Contact Info) Description 05/18/2024 9:15 AM EST Clinical Support [facility] MEDICINE [address] [place], [place] [phone] 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 RN [address] [place] [address] Uncomplicated opioid dependence (CMS/HCC) (Primary Dx) Social History Tobacco Use Types Packs/Day Years [...] as of this encounter Progress Notes * 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 RN - 05/18/2024 9:15 AM EST Shaggy Saucedo is a 68 y.o. male who presents for OBAT RV. Patient has been in the program for 4 years 7 months, also in program previously. INDUCTION DATE: 10/25/2019. services: [facility] closed 01/13/24. Integrated clinician Laisha seeing patient. Torch Shearer: Nav Carcamo Current dose of Suboxone is 24/6 MG DAILY and on a 4 week schedule appointment Liver function test: due 03/23/25 Hep C: treated for re-infection, HCV RNA<18 Nov 2021 STI screening: HIV negative Nov 2021, Hep B negative 2019, RPR negative in 2013. Declined PrEP. Last PCP appt: 05/17/24 Dental appt: done within 1 year. PrEP discussion: declines Discussion about smoking: Currently smoking 3 cig per day on 03/23/24. Working on smoking cessation. IZ status: Received Hep A and B immunizations LAST VISIT: 04/20/24 Utox: BUP Shaggy came with his friend (they met in [facility] many years ago). His friend is very active in the mormonism. Shaggy states his vahid (in god) and buprenorphine / naloxone (Suboxone) are helping his recovery. He wants to stop smoking this year. Interim history: pt seen at [facility] and by PCP. Today 05/18/24 Utox: BUP only Shaggy seen today for follow up for opioid use disorder. Reports doing well on Suboxone and gratefulto be in recovery. His jaw is continuing to bother him and [place] [facility] [place],confirmed no appointment needed for this. He states no longer in care at [facility] since they closed 01/13/24. Seeing integrated therapist Laisha who is not here today. Pt was ok to wait to reschedule with her rather than see another therapist today. Plan: Suboxone dosing schedule of 24/6 mg daily, management of side effects, risk reduction/sobriety, andbehavioral health attendance reviewed. Appointment for 4 weeks given. Patient expressed understanding and agreement with continuing plan of care. documented in this encounter Plan of Treatment Upcoming Encounters Date Type Department Care Team (Late st Contact Info) Description 05/30/2024 10:30 AM EST Office Visit [facility] OPTOMETRY [address] [place] [address] Khloe Amezcua, OD [address] [place] [address] 06/09/2024 1:15 PM EST Office Visit [facility] MEDICINE [address] [place] [phone] Waleska Baeza ANP [address] [place] [address] 06/15/2024 9:15 AM EDT Office Visit [address] [address] Montse Quintanilla MD [address] [place] [address] documented as of this encounter Procedures Procedure Name Priority Date/Time Associated Diagnosis Comments POCT GISSEL-14 URINE DRUG SCREEN Routine 05/18/2024 9:05 AM EST Uncomplicated opioid dependence (CMS/HCC) documented in this encounter Results * POCT GISSEL-14 Urine Drug Screen (05/18/2024 9:05 AM EST) THC Negative Cocaine Screen, Urine Negative Opiate Screen, Urine Negative Methamphetamine Screen Urine Negative Amphetamine Screen, Urine Negative Benzodiazepines Screen, Urine Negative Barbiturate Screen, Urine Negative Methadone Screen, Urine Negative Buprenophine Screen, Urine Positive TCA, Urine Negative MDMA Urine Negative ng/mL Oxycodone Screen, Urine Negative Phencyclidine (PCP), Urine Negative Propoxyphene, Urine Negative Fentanyl, Urine Negative Urine Urine specimen obtained by clean catch procedure / Unknown 05/18/2024 9:05 AM EST Montse Quintanilla MD POINT OF CARE TEST ENTER/EDIT OR DERABLES Final Result documented in this encounter Visit Diagnoses Diagnosis Uncomplicated opioid dependence (CMS/HCC)- Primary documented in this encounter Additional Health Concerns Assessment Noted Time PHQ-9 Depression Total Score: 3 04/21/19 25 1:02 PM EST documented as of this encounter Care Teams Technical Internship Relationship Specialty Start Date End Date Waleska Baeza ANP [address] [place] [id number] PCP - General Family Medicine 08/23/19 documented as of this encounter
--- OUTSIDE RECORDS SUMMARY | 2024-05-26 13:47 | XMS_ITS | Encounter Summary ---
Author Organization [employer] Address [address] [facility] [address] [place] [address] Care Team Providers Care Sales And Catering Coordinator Name Role Phone Waleska Beaza JUSTIN Primary Care Provider [phone] Reason for Visit * Reason Comments RC Recovery Supports Encounter Details Date Type Department Care Team ([facility] st Contact Info) Description 05/19/2024 Patient Outreach [facility] MEDICINE [address] [place], [place] [phone] Nav Carcamo [address] [place] [address] Recovery Supports Social History Tobacco Use Types [...] Progress Notes * Nav Carlos Alberto - 05/19/2024 1:12 PM EST I met with Shaggy today. Setting: in person at [facility] Recovery Wellness Goals worked on: Social Stability Action taken/next steps: Attended alcohol and drug free activity Additional comments: Recovery center Nav Carlos Alberto documented in this encounter Plan of Treatment Upcoming Encounters Date Type Department Care Team (Late st Contact Info) Description 05/30/2024 10:30 AM EST Office Visit [facility] OPTOMETRY [address] [place] [phone] Khloe Amezcua, OD [address] [place] [address] 06/09/2024 1:15 PM EST Office Visit [facility] MEDICINE [address] [place] [address] Waleska Baeza ANP [address] [place] [address] 06/15/2024 9:15 AM EDT Office Visit [facility] MEDICINE [address] [place] [address] Montse Quintanilla MD [address] [place] [address] documented as of this encounter Visit Diagnoses Not on filedocumented in this encounter Additional Health Concerns Assessment Noted Time PHQ-9 Depression Total Score: 3 04/21/19 25 1:02 PM EST documented as of this encounter Care Teams Sales And Catering Coordinator Relationship Specialty Start Date End Date Waleska Baeza ANP [address] [place] [address] PCP - General Family Medicine 08/23/19 documented as of this encounter
--- OUTSIDE RECORDS SUMMARY | 2024-05-26 13:47 | XMS_ITS | Encounter Summary ---
Author Organization [employer] Address [address] [facility] 7t [place] [address] Care Team Providers Care Resource Room Special Education Teacher Name Role Phone Waleska Baeza JUSTIN Primary Care Provider [phone] Reason for Visit * Reason Comments RC Recovery Supports Encounter Details Date Type Department Care Team ([facility] st Contact Info) Description 05/20/2024 Patient Outreach [facility] MEDICINE [address] [place], [place] [phone] Nav Carcamo [address] [place] [address] Recovery Supports Social History Tobacco Use Types [...] encounter Progress Notes * Nav Carcamo - 05/20/2024 2:09 PM EST I met with Shaggy today. Setting: in person at [facility] Recovery Wellness Goals worked on: Physical Health/Mental Health and Social Stability Action taken/next steps: Offered person centered recovery support and Attended alcohol and drug free activity Additional comments: I also fix his phone. Nav Carlos Alberto documented in this encounter Plan of Treatment Upcoming Encounters Date Type Department Care Team (Late st Contact Info) Description 05/30/2024 10:30 AM EST Office Visit [facility] OPTOMETRY [address] [place] [address] Khloe Amezcua, OD [address] [place] [address] 06/09/2024 1:15 PM EST Office Visit [facility] MEDICINE [address] [place] [address] Waleska Baeza ANP [address] [place] [address] 06/15/2024 9:15 AM EDT Office Visit [address] [address] Montse Quintanilla MD [address] [place] [phone] documented as of this encounter Visit Diagnoses Not on filedocumented in this encounter Additional Health Concerns Assessment Noted Time PHQ-9 Depression Total Score: 3 04/21/19 25 1:02 PM EST documented as of this encounter Care Teams Resource Room Special Education Teacher Relationship Specialty Start Date End Date Waleska Baeza ANP [address] [place] [address] PCP - General Family Medicine 08/23/19 documented as of this encounter
--- OUTSIDE RECORDS SUMMARY | 2024-05-26 13:47 | XMS_ITS | Encounter Summary ---
Author Organization [employer] Address [address] [facility] 7t [place] [address] Care Team Providers Care Dietitian Therapeutic Name Role Phone Waleska Baeza Primary Care Provider [phone] Encounter Details Date Type Department Care Team (Latest Contact Info) Description 05/17/2024 Travel Social History Tobacco Use Types Packs/Day [...] 05/30/2024 10:30 AM EST Office Visit [facility] OPTOMETRY [address] [place] [address] Khloe Amezcua, NELSY [address] [place] [address] 06/09/2024 1:15 PM EST Office Visit [facility] MEDICINE [address] [place] [address] Waleska Baeza ANP [address] [place] [address] 06/15/2024 9:15 AM EDT Office Visit [address] [address] Montse Quintanilla MD [address] [place] [address] documented as of this encounter Visit Diagnoses Not on filedocumented in this encounter Additional Health Concerns Assessment Noted Time PHQ-9 Depression Total Score: 3 04/21/19 25 1:02 PM EST documented as of this encounter Care Teams Dietitian Therapeutic Relationship Specialty Start Date End Date Waleska Baeza ANP [address] [place] [phone] PCP - General Family Medicine 08/23/19 documented as of this encounter
--- OUTSIDE RECORDS SUMMARY | 2024-05-26 13:47 | XMS_ITS | Encounter Summary ---
Author Organization [facility] Address [address] [facility] [address] [place] [address] Care Team Providers Care Public Works Supervisor Name Role Phone Jay Lawler Primary Care Provider [phone] Encounter Details Date Type Department Care Team ([facility] st Contact Info) Description 05/24/2024 Orders Only GENERIC EXTERNAL DATA DEPARTMENT Provider, Generic External Data Social History Tobacco Use Types Packs/Day Years [...] Description 05/30/2024 10:30 AM EST Office Visit [facility] [address] [place] [address] Khloe Amezcua, OD [address] [place] [address] 06/09/2024 1:15 PM EST Office Visit [facility] [address] [place] [address] Jay Lawler ANP [address] [place] [address] 06/15/2024 9:15 AM EDT Office Visit [facility] [address] [place] [address] Montse Quintanilla MD [address] [place] [address] documented as of this encounter Procedures Procedure Name Priority Date/Time Associated Diagnosis Comments SARS COV2/INFLUENZA A/B AND RSV RNA QL NAAT Routine 05/24/2024 9:[address] HEAD WO CONTRAST Routine 05/24/2024 9 :[address] SINUS FACIAL BONES WO CONTRAST Routine 05/24/2024 9:16 PM EST HIGH SENSITIVITY TROPONIN I Routine 05/24/2024 5:44 PM EST HIGH SENSITIVITY TROPONIN I Routine 05/24/2024 2:55 PM EST CBC WITH AUTO DIFFERENTIAL Routine 05/24/2024 2:55 PM EST SED RATE BY MODIFIED WESTERGREN Routine 05/24/2024 2:55 PM EST C-REACTIVE PROTEIN Routine 05/24/2024 2: 55 PM EST MAGNESIUM Routine 05/24/2024 2:55 PM EST HEPATIC FUNCTION PANEL Routine 05/24/2024 2:55 PM EST BASIC METABOLIC PANEL Routine 05/24/2024 2:55 PM EST documented in this encounter Results * SARS-CoV-2 RNA, Influenza A/B, and RSV RNA, Ql NAAT (05/24/2024 9:43 PM EST) Influenza A PCR NEGATIVE Negative [facility] Influenza B PCR NEGATIVE Negative [facility] Resp Syncy Virus RNA Qual PCR NEGATIVE Negative [facility] SARS COV2 PCR NEGATIVE Negative [facility] Comment:All test results mus t be correlated with clinical findings.Negative results do not preclude SARS-CoV2, influenza Avirus, influenza B virus and/or RSV infectionand should not be used as the sole basis for treatment orother patient management decisions. Negative results must becombined with clinical observations, patient history, andepidemiological information.This test has not been evaluated for monitoring treatment ofinfection.This test has been authorized by the FDA under an EmergencyUse Authorization (EUA) for use by authorized laboratories.Testing performed on the [employer] GeneXpert utilizingreal-time RT-PCR.All SARS CoV2 and positive influenza A/B results arereported to [facility]. 05/24/2024 9:43 PM EST 05/24/2024 9:45 PM EST us Generic External Data Provider LAB MICROBIOLOGY - GENERAL ORDERABLES Final Result [facility] [address] [place] [address] [phone] * CT Head w/o Contrast (05/24/2024 9:28 PM EST) Anatomical Region Laterality Modality Head, Neck Computed Tomogra phy 05/24/2024 9:28 PM EST Narrative 05/24/2024 9:29 PM EST ? [facility] ?[address] ?[place] [address] ? CT Scan Report ? Signed ? Patient: Shaggy German ?MR#: ?? [id number] ? : 1955 ?Acct:[id number] ? Age/Sex: 68 / M ?ADM Date: 05/24/24 ? Loc: HO.ED ? Attending Dr: ? Ordering Physician: Danuta Gillis MD ?? Date of Service: 05/24/24 ?? Procedure(s): CT head/brain wo IV con ?? Accession Number(s): [id number] ? cc: Danuta Gillis MD; JAY LAWLER NP ? Report Number: ?? [id number]: Total DLP = ?0.00 mGy-cm ? CLINICAL HISTORY: NAVARRO ? CT head without contrast ? Comparison: 10/09/2018 ? Findings: ? No intracranial mass, midline shift, hydrocephalus, or acute hemorrhage. ?? No acute process in sinuses or mastoids. No acute bony abnormality. ? Impression: ? No acute intracranial process ? This document has been electronically signed by: Ghanshyam Cooper MD on ?? 05/24/2024 21:28:26 ? Dictated By: ?Ghanshyam Cooper MD ? Signed By: ?<Electronically signed by Ghanshyam Cooper MD in OV> ? 05/24/242128 ? DD/ 27 ? TD/TT: 05/24/242127 ? [employer]: ? Procedure Note Francisco Jefferson - 05/24/[address] [address] [address] Scan Report Signed Patient: Shaggy German [facility]#: [id number] : 6Acct:[id number] Age/Sex: 68 / MADM Date: 05/24/24 Loc: HO.ED Attending Dr: Ordering Physician: Danuta Gillis MD Date of Service: 05/24/24 Procedure(s): CT head/brain wo IV con Accession Number(s): [id number] cc: Danuta Gillis MD; JAY LAWLER NP Report Number: [id number]: Total DLP = 0.00 mGy-cm CLINICAL HISTORY: NVAARRO CT head without contrast Comparison: 10/09/2018 Findings: No intracranial mass, midline shift, hydrocephalus, or acute hemorrhage. No acute process in sinuses or mastoids. No acute bony abnormality. Impression: No acute intracranial process This document has been electronically signed by: Ghanshyam Cooper MD on 05/24/2024 21:28:26 Dictated By: Ghanshyam Cooper MD Signed By: <Electronically signed by Ghanshyam Cooper MD in OV> 05/24/242128 DD/ 27 TD/TT: 05/24/242127 [employer]: [employer] External Provider IMG CT PROCEDURES Edited Result - Final * CT Sinus Facial Bones w/o Contrast (05/24/2024 9:16 PM EST) Anatomical Region Laterality Modality Computed Tomogra phy 05/24/2024 9:16 PM EST Narrative 05/24/2024 9:18 PM EST ? [facility] ?[address] ?[place] [address] ? CT Scan Report ? Signed ? Patient: Jamey Saucedo,Shaggy M ?MR#: ?? [id number] ? : 1955 ?Acct:[id number] ? Age/Sex: 68 / M ?ADM Date: 02/18/25 ? Loc: HO.ED ? Attending Dr: ? Ordering Physician: Danuta Gillis MD ?? Date of Service: 05/24/24 ?? Procedure(s): CT facial bones wo IV con ?? Accession Number(s): [id number] ? cc: Danuta Gillis MD; JAY LAWLER NP ? Report Number: ?? [id number]: Total DLP = 1194.00 mGy-cm ? CLINICAL HISTORY: Right sided jaw pain ? CT maxillofacial without contrast ? Comparison: None ? Findings: ? No acute fracture or dislocation identified. ?? Paranasal sinuses and mastoid air cells clear. ?? Mandible and TMJs are unremarkable. ? Soft tissues unremarkable. No foreign body. ?? Ocular globes symmetric and unremarkable. ? Impression: ? No acute bony abnormality. ? This document has been electronically signed by: Ghanshyam Cooper MD on ?? 05/24/2024 21:16:55 ? Dictated By: ?Ghanshyam Cooper MD ? Signed By: ?<Electronically signed by Ghanshyam Cooper MD in OV> ? 05/24/242116 ? DD/ 15 ? TD/TT: 05/24/242115 ? [employer]: ? Procedure Note [place]ter, Image - 05/24/[address] [place] [address] [address] Scan Report Signed Patient: Shaggy German MMR#: [id number] : 1955cct:[id number] Age/Sex: 68 / MADM Date: 05/24/24 Loc: HO.ED Attending Dr: Ordering Physician: Danuta Gillis MD Date of Service: 05/24/24 Procedure(s): CT facial bones wo IV con Accession Number(s): [id number] cc: Danuta Gillis MD; JAY LAWLER NP Report Number: [id number]: Total DLP = 1194.00 mGy-cm CLINICAL HISTORY: Right sided jaw pain CT maxillofacial without contrast Comparison: None Findings: No acute fracture or dislocation identified. Paranasal sinuses and mastoid air cells clear. Mandible and TMJs are unremarkable. Soft tissues unremarkable. No foreign body. Ocular globes symmetric and unremarkable. Impression: No acute bony abnormality. This document has been electronically signed by: Ghanshyam Cooper MD on 05/24/2024 21:16:55 Dictated By: Ghanshyam Cooper MD Signed By: <Electronically signed by Ghanshyam Cooper MD in OV> 05/24/242116 DD/ 15 TD/TT: 05/24/242115 [employer]: [employer] External Provider IMG CT PROCEDURES Edited Result - Final * High Sensitivity Troponin I (05/24/2024 5:44 PM EST) Pathologist [facility] TROPONIN I HIGH SENSITIVITY <2.7 <3.5 - 35.0 ng/L [facility] Comment:The [facility] high sens itivity Troponin-I results should beused in conjunction with other diagnostic information suchas ECG, clinical observations and information, and patientsymptoms to aid in the diagnosis of DC. 05/24/2024 5:44 PM EST 05/24/2024 5:47 PM EST Generic External Data Provider LAB BLOOD ORDERAB LES Final Result Performing Organization Address [facility] Co de Phone Number [facility] [address] [place] [phone] * Sed Rate by Modified Mishaergren (05/24/2024 2:55 PM EST) Pathologist [facility] Erythrocyte Sedimentation Rate 4 0 - 15 MM/HR [facility] Comment:Patients with polycy themia and many hemoglobin abnormalitiesmay have depressed sed rates whereas patients with anemiamay have elevated sed rates. 05/24/2024 2:55 PM EST 05/24/2024 8:16 PM EST Generic External Data Provider LAB BLOOD ORDERAB LES Final Result Performing Organization Address [facility] Co de Phone Number [facility] [address] [place] [phone] * C-reactive Protein (05/24/2024 2:55 PM EST) Pathologist [facility] C Reactive Protein 0.15 < or = 0.50 mg/dL [facility] 05/24/2024 2:55 PM EST 05/24/2024 2:59 PM EST us Generic External Data Provider LAB BLOOD ORDERAB LES Final Result Performing Organization Address [facility] [[email or web address]] de Phone Number [facility] [address] [place] [phone] * High Sensitivity Troponin I (05/24/2024 2:55 PM EST) [facility] TROPONIN I HIGH SENSITIVITY <2.7 <3.5 - 35.0 ng/L [facility] Comment:The [employer] high sens itivity Troponin-I results should beused in conjunction with other diagnostic information suchas ECG, clinical observations and information, and patientsymptoms to aid in the diagnosis of DC. 05/24/2024 2:55 PM EST 05/24/2024 2:59 PM EST Generic External Data Provider LAB BLOOD ORDERAB LES Final Result Performing Organization Address [facility] Phone Number [facility] [address] [place] [phone] * Magnesium (05/24/2024 2:55 PM EST) [facility] Magnesium 2.1 1.6 - 2.6 mg/dL [facility] 05/24/2024 2:55 PM EST 05/24/2024 2:59 PM EST Generic External Data Provider LAB BLOOD ORDERAB LES Final Result Performing Organization Address [facility] Phone Number [facility] [address] [place] [phone] * (ABNORMAL) Basic Metabolic Panel (05/24/2024 2:55 PM EST) [facility] Sodium 139 135 - 145 mmol/L [facility] Potassium 4.3 3.3 - 5.1 mmol/L [facility] Chloride 107 96 - 108 mmol/L [facility] Carbon Dioxide 25 22 - 29 mmol/L [facility] Anion Gap 11(L) 12 - 20 [facility] Urea Nitrogen (BUN) 10 9 - 16 mg/dL [facility] Creatinine, Serum 0.75 0.5 - 1.4 mg/dL [facility] Creatinine Clr Calc Pharmacy 96.2 [facility] Comment:eGFR (calculated fro m the MDRD study equation) and eCrCl(calculated from the Cockcroft-Gault equation) are based ondifferent parameters and may not yield comparable results.If eCrCl result is absurd, please check patient'sheight/weight. Estimated Glomerular Filt Rate >60 [facility] Comment:Chronic Kidney Disea se: Estimated GFR < 60 mL/min/[id number] Kidney Disease: Estimated GFR < 15 mL/min/1.73m2 Glucose 83 60 - 115 mg/dL [facility] Calcium 9.3 8.4 - 10.2 mg/dL [facility] 05/24/2024 2:55 PM EST 05/24/2024 2:59 PM EST us Generic External Data Provider LAB BLOOD ORDERAB LES Final Result [facility] [address] [place] [address] [phone] * (ABNORMAL) Hepatic Function Panel (05/24/2024 2:55 PM EST) Bilirubin, Total 1.7(H) 0.0 - 1.0 mg/dL [facility] Bilirubin, Direct 0.3 0.0 - 0.5 mg/dL [facility] Aspartate Amino Transferase 37 5 - 37 U/L [facility] Alanine Aminotransferase 35 0 - 40 U/L [facility] Total Protein 8.0 6.5 - 8.0 g/dL [facility] Albumin Level 4.4 3.5 - 5.0 g/dL [facility] Alkaline Phosphatase 78 39 - 117 U/L [facility] 05/24/2024 2:55 PM EST 05/24/2024 2:59 PM EST us Generic External Data Provider LAB BLOOD ORDERAB LES Final Result [facility] [address] [place] [phone] [phone] * (ABNORMAL) CBC auto differential (05/24/2024 2:55 PM EST) White Blood Count 4.3(L) 4.8 - 10.8 X10*3/uL [facility] Red Blood Count 4.95 4.60 - 5.80 X10*6/uL [facility] Hemoglobin 15.0 14.0 - 18.0 g/dl [facility] Hematocrit 44.4 42.0 - 52.0 % [facility] Mean Corpuscular Volume 89.7 80.0 - 98.0 fL [facility] Mean Corpuscular Hemoglobin 30.3 27.0 - 33.0 pg [facility] Mean Corpuscular HGB Conc 33.8 31.0 - 36.0 g/dl [facility] Red Cell Distribution Width 12.6 11.0 - 16.0 % [facility] Platelet Count 186 160 - 400 X10*3/uL [facility] Mean Platelet Volume 10.5 9.4 - 12.4 fL [facility] Neutrophils Percent Auto 54.4 45 - 73 % [facility] Imm Gran Pct Auto 0.2 0.0 - 0.4 % [facility] Lymphocytes Percent Auto 34.7 20 - 40 % [facility] Monocytes Percent Auto 7.0 2 - 11 % [facility] Eosinophils Percent Auto 2.3 0 - 4 % [facility] Basophils Percent Auto 1.4 0 - 2 % [facility] NRBC Pct Auto 0.0 0.0 - 0.2 /100WBC [facility] Neutrophils Absolute Auto 2.3 2.0 - 8.3 x10*3/uL [facility] Imm Gran Abs Auto 0.01 0.00 - 0.03 X10*3/uL [facility] Lymphocytes Absolute Auto 1.5 1.2 - 4.9 X10*3/uL [facility] Monocytes Absolute Auto 0.3 0.1 - 1.2 X10*3/uL [facility] Eosinophils Absolute Auto 0.1 0.0 - 0.4 X10*3/uL [facility] Basophils Absolute Auto 0.1 0.0 - 0.2 X10*3/uL [facility] NRBC Abs Auto 0.000 0.0 - 0.012 X10*3/uL [facility] 05/24/2024 2:55 PM EST 05/24/2024 2:59 PM EST us Generic External Data Provider LAB BLOOD ORDERAB LES Final Result Performing Organization Address City/State/[facility] Co de Phone Number [facility] [address] [place] [address] [phone] documented in this encounter Visit Diagnoses Not on filedocumented in this encounter Additional Health Concerns Assessment Noted Time PHQ-9 Depression Total Score: 3 04/21/19 25 1:02 PM EST documented as of this encounter Care Teams Public Works Supervisor Relationship Specialty Start Date End Date Jay Lawler ANP [address] [place] [address] PCP - General Family Medicine 08/23/19 documented as of this encounter
--- OUTSIDE RECORDS SUMMARY | 2024-05-26 13:47 | XMS_ITS | Clinical Summary ---
Author Organization [employer] Address [address] [place] [address] [address] [place] [address] Care Team Providers Care Telephone Sales Agent Name Role Phone Jay Lawler Primary Care Provider [phone] Allergies Active Allergy Reactions Criticality Noted Date Comments Metronidazole Rash Low 04/27/2017 Other reaction(s): Rash Medications * This document contains information received from the source organization and may not represent a complete record from that organization. sertraline (Zoloft) 50 MG tablet Take 1 tablet by mouth at bed time. Active azelaic acid (Finacea) 15 % gel apply by topical route 2 times every day a thin layer to FACE Active Dimethicone (Aveeno Skin Relief) 1.3 % lotion apply topically to feet daily in AM 022 Active loratadine (Claritin) 10 MG tablet Take 1 tablet by mouth in the morning. 021 Active salicylic acid-lactic acid (Compound W) 17 % external solution 1-2 drops to affected area and cover with occlusive bandage for 12 hours daily 022 Active Bacitracin-Polymy briana B (SM Double Antibiotic) [id number] UNIT/GM ointmentIndicatio ns:Tinea pedis of both feet APPLY TO THE AFFECTED AREA(S) TOPICALLY TWICE DAILY 28.4 g 023 Active naloxone (Narcan) 4 mg/0.1 mL nasal spray FOR SUSPECTED OPIOID OVERDOSE. SPRAY 0.1mL IN ONE NOSTRIL. REPEAT IN ALTERNATE NOSTRIL 2-3 MINUTES IF NEEDED. SEEK MEDICAL ATTENTION IMMEDIATELY EVEN IF PATIENT RESPONDS. 022 Active HM ClearLax 17 GM/SCOOP powder TAKE 17 GM MIXED IN 8 OUNCES OF WATER, COFFEE OR TEA ONCE DAILY 023 Active sennosides (Senokot) 8.6 MG tablet take once daily by mouth as needed for constipation. Start taking after bowel movements are regular using Miralax powder 020 Active lidocaine-priloca ine (Emla) 2.5-2.5 % creamIndications: Costochondritis APPLY A THIN LAYER TO AFFECTED AREA(S) TOPICALLY 1 TO 2 TIMES DAILY NEEDED FOR PAIN 30 g 1 023 Active finasteride (Proscar) 5 MG tablet Take 5 mg by mouth in the morning. 023 Active terazosin (Hytrin) 5 MG capsule 023 Active hydrocortisone 2.5 % cream Apply topically 2 times daily. 30 g 023 Active Diclofenac Sodium 1 % gelIndications:Co stochondritis APPLY 2 GRAMS TOPICALLY TO AFFECTED AREA(S) THREE TIMES DAILY NEEDED (FOR DISCOMFORT en el CHEST) 100 g 023 Active ketoconazole (NIZOral) 2 % shampooIndication s:Seborrheic dermatitis APPLY TO DAMP SCALP, LATHER, LEAVE FOR 5 MINUTES THEN RINSE WITH WATER. USE 3-7 DAYS PER WEEK DIRECTED 120 mL 023 Active Bisacodyl EC 5 MG EC tablet TAKE 2 TABLETS BY MOUTH ONCE AT NOON THE DAY BEFORE COLONOSCOPY 023 Active ketoconazole (NIZOral) 2 % creamIndications: Tinea pedis of both feet,Seborrheic dermatitis To face as needed daily and to feet as needed twice daily 60 g 2 024 Active baclofen (Lioresal) 10 MG tablet TAKE 1 TABLET BY MOUTH THREE TIMES DAILY IN THE MORNING, AT NOON, AND AT BEDTIME NEEDED FOR MUSCLE SPASMS 60 tablet 1 024 Active Refresh Tears 0.5 % ophthalmic solution INSTILL 1 DROP INTO THE AFFECTED EYE(S) NEEDED 15 mL 5 024 Active ergocalciferol (Vitamin D2) 1.25 MG (06862 UT) capsuleIndication s:Vitamin D deficiency TAKE 1 CAPSULE BY MOUTH EVERY MORNING (ONCE PER MONTH) 1 capsule 024 Active Petrolatum ointment apply topically to feet nightly after soaking 454 g 11 024 Active omeprazole (PriLOSEC) [address] capsule Take 1 capsule (20 mg) by mouth if needed each day (reflux, kazakh label). Do not crush or chew. 14 capsule 024 Active triamcinolone (Kenalog) 0.1 % creamIndications: Itching MIX triamcinolone WITH cerave AND APPLY TOPICALLY TO THE AFFECTED AREA(S) OF THE CHEST AND BACK TWICE DAILY DIRECTED 60 g 1 024 Active pravastatin (Pravachol) 20 MG tabletIndications :Mixed hyperlipidemia Take 1 tablet daily at bedtime 90 tablet 024 Active fluocinolone ([place]oothe) 0.01 % external oilIndications:Se borrheic dermatitis APPLY TOPICALLY TO DAMP SCALP BEFORE BEDTIME. WRAP HEAD. WASH OUT IN THE MORNING. USE 3x PER WEEK to treat, USE EVERY 1 TO 2 WEEKS TO PREVENT. 118.28 mL 1 025 Active Suboxone 8-2 MG SL filmIndications:O pioid type dependence, continuous (CMS/HCC) Place 1 Film under the tongue 3 times daily for 28 days. 84 Film 025 2024 Active QUEtiapine (SEROquel) 50 MG tabletIndications :Depressive disorder,Insomnia , unspecified type Take 1 tablet (50 mg) by mouth at bedtime. 90 tablet 025 Active acetaminophen (Tylenol) 500 MG tabletIndications :Acute nonintractable headache, unspecified headache type Take 1 tablet (500 mg) by mouth every 6 (six) hours if needed for moderate pain or fever. 30 tablet 025 Active ibuprofen 400 MG tabletIndications :Acute nonintractable headache, unspecified headache type Take 1 tablet (400 mg) by mouth every 6 (six) hours if needed for moderate pain or fever for up to 30 doses. 30 tablet 025 Active nicotine (Nicoderm CQ) 7 MG/24HR patch Place 1 patch on the skin 1 (one) time each day at the same time. 14 patch 025 2024 Active nicotine (Nicoderm CQ) 14 MG/24HR patch Place 1 patch on the skin 1 (one) time each day at the same time. 42 patch 025 2024 Active nicotine polacrilex (Commit) 2 MG lozenge Dissolve 1 lozenge (2 mg) in the mouth if needed for smoking cessation. 100 lozenge 025 2024 Active ibuprofen 400 MG tablet Take 1 tablet (400 mg) by mouth every 6 (six) hours if needed for moderate pain or fever for up to 30 doses. 30 tablet 024 2024 Discontinued(R eorder (will not trigger notification to Pharmacy)) acetaminophen (Tylenol) 500 MG tablet Take 2 tablets (1,000 mg) by mouth every 6 (six) hours if needed for moderate pain or fever for up to 25 doses. 30 tablet 024 2024 Discontinued(R eorder (will not trigger notification to Pharmacy)) QUEtiapine (SEROquel) 50 MG tabletIndications :Depressive disorder,Insomnia , unspecified type Take 1 tablet (50 mg) by mouth at bedtime. 90 tablet 024 2024 Discontinued(R eorder (will not trigger notification to Pharmacy)) Suboxone 8-2 MG SL filmIndications:O pioid type dependence, continuous (CMS/HCC) Place 1 Film under the tongue 3 times daily for 28 days. 84 Film 025 2024 Discontinued(R eorder (will not trigger notification to Pharmacy)) amoxicillin-clavu lanate (Augmentin) 875-125 MG tabletIndications :Jaw pain Take 1 tablet by mouth 2 times daily for 10 days. 20 tablet 025 2024 Active Problems Problem Noted Date Diagnosed Date Acute nonintractable headache 05/21/2024 Assessment & Plan (05/21/2024 10:44 AM EST): Pt here with c/o new onset of bitemporal headache described when severe 6/10 right now approximately 3/10 . Thinks he might have had a fever yesterday but did not check his temperature just by touch. Denies any other associated symptoms Exam within normal limits, No evidence of meningismus, both Flu and Covid tests negative. Reports the headache as intermittent Etiology ? Likely viral syndrome, nothing to suggest meningismus Plan: supportive measures, Tylenol or Ibuprofen PRN. Instructed to come back if symptoms do not improve or worsen or if he develops other symptoms or present himself to the nearest ER Pt agreeable with plan, verbalized understanding. Jaw pain 05/10/2024 Overview (05/10/2024): 5 days of jaw discomfort with chewing only. Tolerating POs well. No evidence of infection or neoplasm but may have occult deep infection. Will trial Augmentin for better anaerobic coverage started 05/10/24 for 10 days. -Pt hs follow up with PCP scheduled 05/17/24, advised to let PCP know if symptoms have not resolved. -Advise follow up sooner if symptoms worsen. He agrees with the plan. Assessment & Plan (05/10/2024 2:05 PM EST): 5 days of jaw discomfort with chewing only. Tolerating POs well. No evidence of infection or neoplasm but may have occult deep infection. Will trial Augmentin for better anaerobic coverage started 05/10/24 for 10 days. -Pt hs follow up with PCP scheduled 05/17/24, advised to let PCP know if symptoms have not resolved. -Advise follow up sooner if symptoms worsen. He agrees with the plan. Epigastric pain 11/25/2023 Assessment & Plan (11/25/2023 3:47 PM EDT): Likely reflux. -will trial omeprazole for 2 weeks. -no signs of infectious origin. -no evidence of cardiac etiology. -recommended drinking less coffee. -discussed ER and return precautions. Tobacco dependence 04/14/2023 Assessment & Plan (04/20/2024 11:26 AM EST): - he is currently smoking 3 cigs per day - Tried nicotine replacement, which was ineffective - continue working on smoking cessation. Assessment & Plan (07/15/2023 9:43 AM EDT): - he is currently smoking 1 cig per day - Tried nicotine replacement, which was ineffective - continue working on smoking cessation. Esophagitis 08/11/2022 Overview (08/11/2022): Cont PPI From GI notes: 05/2020 abd US showed diffuse increased liver echogenicity, no focal hepatic lesion and no intrahepatic biliary duct dilatation seen. Patient with complaints of early satiety possibly related to peptic ulcer disease versus slow gastric emptying due to Suboxone. [...] 08/14/20 EGD showed diffuse gastritis and focal esophagitis, gastric biopsies were negative for Helicobacter pylori. Abdominal CT scan was normal except for residual stools. Left-sided chest wall pain 08/11/2022 Overview (08/11/2022): L-sided anterior rib/chest wall pain, Present for 30+ years, worse w/ sitting and palpation, movement and straining and described as ever present and never going away. No associated symptoms, No Fever, No SOB, No Chest pain worse w/ exertion. 02/01/2020 Echo essentially normal with grade 1 diastolic dysfunction and stress test normal He had mammo and US in 09/2020 to evaluate, these did not show abnormalities. Nuclear bone scan 01/2021 was not suspicious for malignancy. XR showed probable old 9th rib fx, mild thoracic DJD. He did see pain management in 12/2020 for this (and thoracic back pain) and they were hoping to get US results to eval for an injectable target such as neuroma. He saw them 12/30/2021 with plan for same - US and possible injection. 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 Assessed symptoms, risks, and social supports with direct questions. Discussed current symptoms intensity and frequency. Emotions were normalized and validated. He identified music as coping mechanisms and gardening as protective factors. Provided psychoeducation around coping mechanisms to manage depression and anxiety sxs. Discussed OP therapy but Shaggy is already engage with services at [facility]. Provided education around integrated medicine and the options of follow up BE's as needed. Provided contact information should questions or concerns arise. Plan: Shaggy will continue to engage in effective coping mechanisms that has worked for him. He will implement coping skills discussed in session and will keep appts with therapist at [facility]. Patient with lack of motivation, low mood, insomnia, little energy, He denies SI, HI, or self-harm. Living alone, isolating no informal supports. Patient will benefit from continuation of MH services with [facility]. At this time Shaggy Saucedo meets criteria for Visit Diagnoses: Problem List Items Addressed This Visit Other Depressive disorder Patient ready to address current needs already engage in servies Strengths include Shaggy is able to advocate for himself. PLAN: 1. Follow up with [facility]: Not recommended for follow-up 2. Patient goal is to improve mood and manage sxs 3. Behavioral Recommendations a. Continuation of services with [facility] b. Using coping Mechanisms Opioid dependence 07/02/2016 Assessment & Plan (04/20/2024 5:49 AM EST): -maintenance stage -Last positive [facility] Apr 2019, positive opi -Pt is participating in a group session at [facility] -reviewed harm reduction and OD prevention -continue current Tx plan and recovery support Assessment & Plan (03/23/2024 5:31 AM EST): -maintenance stage -Last positive [facility] Apr 2019, positive opi -Pt is participating in a group session at [facility] -reviewed harm reduction and OD prevention -continue current Tx plan and recovery support Assessment & Plan (07/15/2023 4:40 AM EDT): -maintenance stage -Last positive [facility] Apr 2019, positive opi -Pt is participating in a group session at [facility] -reviewed harm reduction and OD prevention -continue current Tx plan and recovery support Assessment & Plan (05/19/2023 4:59 PM EST): -maintenance stage -Last positive [facility]tox Apr 2019, positive opi -Pt is participating in a group session at [facility] -reviewed harm reduction and OD prevention -continue current Tx plan and recovery support Assessment & Plan (03/24/2023 10:37 PM EST): -maintenance stage -Last positive [facility] Apr 2019, positive opi -Pt is participating in a group session at [facility] -reviewed harm reduction and OD prevention -continue current Tx plan and recovery support Assessment & Plan (11/05/2022 9:50 AM EDT): -maintenance stage -Last positive [facility]tox Apr 2019, positive opi -Pt is participating in a group session at [facility] -reviewed harm reduction and OD prevention -continue current Tx plan and recovery support Assessment & Plan (07/16/2022 9:27 AM EDT): -maintenance stage -Last positive [facility] Apr 2019, positive opi -Pt is participating in a group session at [facility] -reviewed harm reduction and OD prevention -continue current Tx plan and recovery support Assessment & Plan (05/21/2022 9:44 AM EST): -maintenance stage -Last positive [facility] Apr 2019, positive opi -pt tried GBOT in 2021, and back to individual appt -reviewed harm reduction and OD prevention -continue current Tx plan and recovery support Seborrheic dermatitis 07/02/2016 Encounters * This document contains information received from the source organization and may not represent a complete record from that organization. Date Type Department Care Team Description 05/26/2024 Telephone [facility] [address] [place] [id number] 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, RN OBAT Communication 05/26/2024 Patient Outreach [facility] [address] [place] [address] Fazal Chang RC Recovery Supports 05/25/2024 Patient Outreach [facility] [address] [place] [address] Nav Carcamo RC Recovery Supports 05/24/2024 10:40 AM EST [facility] [place] [address] Cyrus Castro MD Acute intractable headache, unspecified headache type (Primary Dx); Neck pain on right side 05/24/2024 Orders Only GENERIC EXTERNAL DATA DEPARTMENT Provider, Generic External Data 05/24/2024 Patient Outreach [facility] [place] [address] Nav Carcamo 05/24/[address] [address] Jay Lawler ANP Medication Question 05/21/2024 10:00 AM EST [facility] [place] [address] Alberto Tello MD Acute nonintractable headache, unspecified headache type (Primary Dx) 05/20/2024 Patient Outreach [facility] [place] [address] Nav Carcamo Recovery Supports 05/19/2024 Patient Outreach [address] [address] Nav Carcamo Recovery Supports 05/18/2024 9:15 AM EST Clinical Support [facility] [place] [address] 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 RN Uncomplicated opioid dependence (CMS/HCC) (Primary Dx) 05/18/2024 Patient Outreach [facility] [place] [address] Nav Carcamo Recovery Supports 05/18/2024 Travel 05/17/2024 1:15 PM EST Office [address] [place] [address] Jay Lawler ANP Dyslipidemia (Primary Dx); Cirrhosis of liver without ascites, unspecified hepatic cirrhosis type (CMS/HCC); Portal hypertensive gastropathy (CMS/HCC) (CMS/HCC); Jaw pain; Depressive disorder; Insomnia, unspecified type 05/17/2024 Travel 05/11/2024 Refill [facility] [place] [address] 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 RN Opioid type dependence, continuous (CMS/HCC) 05/10/2024 1:40 PM EST Office Visit [facility] [address] [place] [address] Jeannette Javier MD Jaw pain (Primary Dx) 05/10/2024 Patient Outreach [facility] [address] [place] [address] CarcamoNav Recovery Supports 05/06/2024 Patient Outreach [address] [address] Nav Carcamo Recovery Supports 05/04/2024 Patient Outreach [address] [address] Jay Lawler ANP Pre-visit Planning (SDOH Screening negative and Tobacco screening negative) 05/02/2024 Patient Outreach [address] [address] Nav Carcamo Recovery Supports 04/28/2024 Patient Outreach [address] [address] Nav Carcamo Recovery Supports 04/26/2024 Patient Outreach [address] [address] Fazal Chang Recovery Supports 04/21/2024 Patient Outreach [address] [address] Akbar Mandujano Recovery Supports 04/20/2024 10:45 AM EST Office Visit [address] [address] Montse Quintanilla MD Uncomplicated opioid dependence (CMS/HCC) (Primary Dx); Tobacco dependence 04/20/2024 Travel 04/18/2024 Patient Outreach [address] [address] Nav Carcamo Recovery Supports 04/17/[address] [address] Jay Lawler ANP Seborrheic dermatitis 04/15/2024 Patient Outreach [address] [address] Major Oneal Recovery Supports 04/15/2024 Patient Outreach [address] [address] Nav Carcamo Recovery Supports 04/14/2024 Patient Outreach [facility] [address] [place] [address] Nav Carcamo Recovery Supports 04/13/2024 Refill [facility] [address] [place] [address] 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, RN Opioid type dependence, continuous ([facility]) 04/11/2024 Patient Outreach [facility] [address] [place] [address] Akbar Mandujano Recovery Supports 04/08/2024 Patient Outreach [facility] [address] [place] [address] Akbar Mandujano Recovery Supports 04/07/2024 Telephone [facility] [address] [place], [place] [address] Jya Lawler, ANP 04/07/2024 Telephone [facility] [place] [address] Kandy Cartwright, RN Results 04/05/2024 Orders Only [facility] [place] [address] Jay Lawler, ANP Mixed hyperlipidemia (Primary Dx) 04/05/2024 Patient Outreach [facility] [place] [address] Nav Carcamo Recovery Supports 04/04/2024 Telephone [facility] [place] [address] Cassandra Sultana, RN Results 04/01/2024 Patient Outreach [facility] [address] [place] [address] Nav Carcamo Recovery Supports 03/31/2024 Telephone [facility] [place] [address] Cheri Marsh MA May recall 03/29/2024 Patient Outreach [facility] [address] [place] [address] Nav Carcamo Recovery Supports 03/24/2024 Patient Outreach [facility] [address] [place] [address] Nav Carcamo Recovery Supports 03/24/2024 Telephone [facility] [address] [place] [address] Jay Lawler ANP DME L&C 03/23/2024 9:15 AM EST Office Visit [facility] [place] [address] Montse Quintanilla MD Uncomplicated opioid dependence (CMS/HCC) (Primary Dx) 03/23/2024 Patient Outreach [facility] [place] [address] Nav Carcamo Recovery Supports 03/23/2024 Telephone [facility] [place] [address] Jay Lawler ANP Durable Medical Equipment 03/23/2024 Travel 03/21/2024 Patient Outreach [facility] [place] [address] Akbar Mandujano Error (VOID this visit) 03/18/2024 Patient Outreach [facility] [place] [address] Nav Carcamo Recovery Supports 03/17/2024 Orders Only [facility] [place] [address] Jay Lawler ANP Depressive disorder (Primary Dx); Insomnia, unspecified type 03/17/2024 Patient Outreach [facility] [place] [address] Akbar Mandujano Recovery Supports 03/16/2024 Refill [facility] [place] [address] 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, GINNA Opioid type dependence, continuous (CMS/HCC) 03/16/2024 Patient Outreach [facility] [place] [address] Nav Carcamo Recovery Supports 03/15/2024 Patient Outreach [facility] [place] [address] Nav Carcamo Recovery Supports 03/14/2024 Patient Outreach [facility] [place] [address] Nav Carcamo Recovery Supports 03/10/2024 Telephone [facility] [place] [address] Jay Lawler ANP Durable Medical Equipment 02/29/2024 Patient Outreach [facility] [address] [place] [address] Akbar Mandujano 02/26/2024 Patient Outreach [facility] [address] [place] [address] Akbar Mandujano 02/25/2024 Patient Outreach [facility] [address] [place] [address] Akbar Mandujano 02/24/2024 9:15 AM EST Clinical Support [facility] [address] [place] [address] Helen Castelan RN Uncomplicated opioid dependence ([facility]) (Primary Dx) 02/24/2024 Orders Only [facility] [address] [place] [address] Darian Mcgill MD 02/24/2024 Travel from Last 3 Months Immunizations Name Administration Dates Next Due Hep A, Adult 07/02/2010 Hep B, adult 07/02/2010 Influenza High-dose Quadriva lent Preservative Free 01/02/2021 Influenza injectable quadriv alent IIV4 with preservative 01/01/2018,12/25/2016,07/02/2016 Influenza injectable quadriv alent preservative free 12/11/2022,01/17/2022,02/14/2020 Influenza, High Dose Seasona l, Preservative Free 01/08/2024 Influenza, IIV3, injectable 12/15/2013 Influenza, Split (incl. vito fied surface antigen) 12/16/2011 Pneumococcal Conjugate PCV 13 02/05/2021 Pneumococcal Polysaccharide PPSV23 06/03/2013, TD (adult), 2 Lf tetanus tox oid, preservative free, adsorbed 11/16/2019 Td (adult), 5 Lf tetanus tox oid, preservative free, adsorbed 08/16/2016 Tdap 11/11/2019,06/04/2009 Zoster, Recombinant 01/13/2020,11/10/2019 Social History Tobacco Use Types Packs/Day Years Used Date Smoking Tobacco: Every Day Cigarettes Passive Smoke Exposure: Current Smokeless Tobacco: Never Tobacco Cessation:Ready to Q uit: Not Asked; Counseling Given: Not Answered Comments:Smoking 3 cigarettes/daily Alcohol Use Standard Drinks/Week Comments Never 0 [...] not to disclose 2021 10:21 AM EDT Last Filed Vital Signs Vital Sign Reading Time Taken Comments Blood Pressure 117/79 05/24/2024 11:16 AM EST Pulse 73 05/24/2024 11:16 AM EST Temperature 36.6 ??C (97.8 ??F) 05/24/2024 11:[address] Respiratory Rate 17 05/24/2024 11:16 AM EST Oxygen Saturation 98% 05/24/2024 11:16 AM EST Inhaled Oxygen Concentration - - Weight 80.7 kg (178 lb) 05/24/2024 11:16 AM EST Height 180.3 cm (5' 11 ) 05/21/2024 10:11 AM EST Body Mass Index 24.83 05/21/2024 10:11 AM EST Plan of Treatment Upcoming Encounters Date Type Department Care Team (Late st Contact Info) Description 05/30/2024 10:30 AM EST Office Visit [facility] OPTOMETRY [address] [place], [place] [phone] Ramírez Amezcuan, OD [address] [place] [address] 06/09/2024 1:15 PM EST Office Visit [facility] MEDICINE [address] [place] [address] Jay Lawler ANP [address] [place] [address] 06/15/2024 9:15 AM EDT Office Visit [facility] MEDICINE [address] [place] [phone] Montse Quintanilla MD [address] [place] [address] Health Maintenance Due Date Last Done Comments Anal Pap 1955 CT Colonography 1955 FIT DNA/Cologuard 1955 FIT 1955 FOBT 1955 Sigmoidoscopy 1955 Dental X-Ray: Bitewings 05/29/2010 05/28/2009 Hepatitis B Vaccines (2 of 3 - Risk 3-dose series) 07/30/2010 07/02/2010 Hepatitis A Vaccines (2 of 2 - Risk 2-dose series) 01/02/2011 07/02/2010 Dental Prophylaxis 03/24/2014 09/21/2013, 1 04/17/2009, 08/14/2009 RSV Patients and Patients Aged 60 years or older (1 - Risk 60-74 years 1-dose series) 2015 Dental Oral Exam 12/15/2016 06/13/2016, 06/19/2009 COVID-19 Vaccine (2023- season) 2023 Depression Screening 04/21/2025 04/21/2024, 01/16/20 25 SDOH Screening 05/04/2025 05/04/2024 Alcohol/Substance Use Screening 05/17/2025 05/17/2024 Tobacco Screening 05/24/2025 05/24/2024 Dental X-Ray: Full Mouth 08/20/2025 023, 06/13/2016, 05/28/2009 Pneumococcal Vaccine: 50+ Years (3 of 3 - PCV20 or PCV21) 02/05/2026 02/05/2021, 06/03/2013, 10/25/2009 Colonoscopy 03/06/2028 12/16/2019 Colorectal Cancer Screening 03/06/2028 Lipid Panel 04/05/2029 04/05/2024, 03/06, 03/13/2023, Additional history exists DTaP/Tdap/Td Vaccines (5 - Td or Tdap) 11/15/2029 11/16/2019, 11/11/2019, 08/16/2016, Additional history exists Zoster Vaccines Completed 01/13/2020, 11/10/2019 Influenza Vaccine Completed 01/08/2024, , 01/17/2022, Additional history exists HIB Vaccines Aged Out No longer eligi ble based on patient's age to complete this topic HPV Vaccines Aged Out No longer eligi ble based on patient's age to complete this topic IPV Vaccines Aged Out No longer eligi ble based on patient's age to complete this topic Meningococcal Vaccine Aged Out No cholo porsha eligible based on patient's age to complete this topic RSV under 20 months Aged Out No longe r eligible based on patient's age to complete this topic Rotavirus Vaccines Aged Out No longer eligible based on patient's age to complete this topic Procedures Procedure Name Priority Date/Time Associated Diagnosis Comments SARS COV2/INFLUENZA A/B AND RSV RNA QL NAAT Routine 05/24/2024 9:[address] HEAD WO CONTRAST Routine 05/24/2024 9 :[address] SINUS FACIAL BONES WO CONTRAST Routine 05/24/2024 9:16 PM EST HIGH SENSITIVITY TROPONIN I Routine 05/24/2024 5:44 PM EST SED RATE BY MODIFIED WESTERGREN Routine 05/24/2024 2:55 PM EST C-REACTIVE PROTEIN Routine 05/24/2024 2: 55 PM EST HIGH SENSITIVITY TROPONIN I Routine 05/24/2024 2:55 PM EST MAGNESIUM Routine 05/24/2024 2:55 PM EST BASIC METABOLIC PANEL Routine 05/24/2024 2:55 PM EST HEPATIC FUNCTION PANEL Routine 05/24/2024 2:55 PM EST CBC WITH AUTO DIFFERENTIAL Routine 05/24/2024 2:55 PM EST POCT INFLUENZA B (ID NOW RAPID MOLECULAR) Routine 05/21/2024 10:40 AM EST Acute nonintractable headache, unspecified headache type POCT INFLUENZA A (ID NOW RAPID MOLECULAR) Routine 05/21/2024 10:40 AM EST Acute nonintractable headache, unspecified headache type POCT RAPID COVID ANTIGEN Routine 05/21/2024 10:40 AM EST Acute nonintractable headache, unspecified headache type POCT GISSEL-14 URINE DRUG SCREEN Routine 05/18/2024 9:05 AM EST Uncomplicated opioid dependence (CMS/HCC) POCT GISSEL-14 URINE DRUG SCREEN Routine 04/20/2024 11:05 AM EST Uncomplicated opioid dependence (CMS/HCC) LIPID PANEL, STANDARD Routine 04/05/2024 8:02 AM EST POCT GISSEL-14 URINE DRUG SCREEN Routine 03/23/2024 9:45 AM EST Uncomplicated opioid dependence (CMS/HCC) HIV 1/2 ANTIGEN/ANTIBODY, FOURTH GENERATION W/RFL Routine 03/23/2024 9:27 AM EST Uncomplicated opioid dependence (CMS/HCC) HEPATIC FUNCTION PANEL Routine 03/23/2024 9:27 AM EST Uncomplicated opioid dependence (CMS/HCC) HEPATITIS C VIRAL RNA, QUANTITATIVE, REAL-TIME PCR Routine 03/23/2024 9:27 AM EST Uncomplicated opioid dependence (CMS/HCC) SYPHILIS SCREEN Routine 03/23/2024 9:27 AM EST Uncomplicated opioid dependence (CMS/HCC) COMPREHENSIVE METABOLIC PANEL Routine 03/23/2024 9:27 AM EST Dyslipidemia LIPID PANEL, STANDARD Routine 03/23/2024 9:27 AM EST Dyslipidemia DRUG MONITOR, OPIATES EXPANDED, QN, URINE Routine 02/24/2024 9:20 AM EST POCT GISSEL-14 URINE DRUG SCREEN Routine 02/24/2024 9:16 AM EST Uncomplicated opioid dependence (CMS/HCC) PANORAMIC RADIOGRAPHIC IMAGE Routine 08/19/2022 1:00 PM EDT HM COLONOSCOPY Routine 12/16/2019 5:19 PM EDT PERIODIC ORAL EVALUATION - ESTABLISHED PATIENT Routine 06/13/2016 12:00 AM EST PROPHYLAXIS - ADULT Routine 09/21/2013 1 2:00 AM EDT INTRAORAL - COMPLETE SERIES OF RADIOGRAPHIC IMAGES Routine 05/28/2009 12:00 AM EST from Last 3 Months or Most Recently Relevant to Health Maintenance Results * SARS-CoV-2 RNA, Influenza A/B, and RSV RNA, Ql NAAT (05/24/2024 9:43 PM EST) Influenza A PCR NEGATIVE Negative [facility] Influenza B PCR NEGATIVE Negative [facility] Resp Syncy Virus RNA Qual PCR NEGATIVE Negative [facility] SARS COV2 PCR NEGATIVE Negative [facility] Comment:All test results mus t [...] use by authorized laboratories.Testing performed on the [employer] GeneXpert utilizingreal-time RT-PCR.All SARS CoV2 and positive influenza A/B results arereported to [facility]. 05/24/2024 9:43 PM EST 05/24/2024 9:45 PM EST us Generic External Data Provider LAB MICROBIOLOGY - GENERAL ORDERABLES Final Result Performing Organization Address City/State/[facility] Co de Phone Number [facility] [address] [place] [phone] * CT Head w/o Contrast (05/24/2024 9:28 PM EST) Anatomical Region Laterality Modality Head, Neck Computed Tomogra phy 05/24/2024 9:28 PM EST Narrative 05/24/2024 9:29 PM EST ? [facility] ?[address] [place] [address]. ?[place] [address] ? CT Scan Report ? Signed ? Patient: Shaggy German ?MR#: ?? [id number] ? : 1955 ?Acct:[id number] ? Age/Sex: 68 / M ?ADM Date: 05/24/24 ? Loc: HO.ED ? Attending Dr: ? Ordering Physician: Danuta Gillis MD ?? Date of Service: 05/24/24 ?? Procedure(s): CT head/brain wo IV con ?? Accession Number(s): [id number] ? cc: Danuta Gillis MD; JAY LAWLER NP ? Report Number: ?? [id number]: Total DLP = ?0.00 mGy-cm ? CLINICAL [...] ? DD/ 27 ? TD/TT: 05/24/242127 ? Personal Lines Insurance Agent: ? Procedure Note Francisco Jefferson - 05/24/[address] [address] [address] Scan Report Signed Patient: Shaggy German MMR#: [id number] : 1955cct:[id number] Age/Sex: 68 / MADM Date: 05/24/24 Loc: HO.ED Attending Dr: Ordering Physician: Danuta Gillis MD Date of Service: 05/24/24 Procedure(s): CT head/brain wo IV con Accession Number(s): [id number] cc: Danuta Gillis MD; JAY LAWLER NP Report Number: [id number]: Total DLP = 0.00 mGy-cm CLINICAL HISTORY: NAVARRO CT head without contrast Comparison: 10/09/2018 Findings: [...] in OV> 05/24/242128 DD/ 27 TD/TT: 05/24/242127 Personal Lines Insurance Agent: [facility] External Provider IMG CT PROCEDURES Edited Result - Final * CT Sinus Facial Bones w/o Contrast (05/24/2024 9:16 PM EST) Anatomical Region Laterality Modality Computed Tomogra phy 05/24/2024 9:16 PM EST Narrative 05/24/2024 9:18 PM EST ? [facility] ?[address] ?[place] [address] ? CT Scan Report ? Signed ? Patient: Jamey Saucedo,Shaggy M ?MR#: ?? [id number] ? : 1955 ?Acct:[id number] ? Age/Sex: 68 / M ?ADM Date: 05/24/24 ? Loc: HO.ED ? Attending Dr: ? Ordering Physician: Danuta Gillis MD ?? Date of Service: 05/24/24 ?? Procedure(s): CT facial bones wo IV con ?? Accession Number(s): [id number] ? cc: Danuta Gillis MD; JAY LAWLER NP ? Report Number: ?? [id number]: Total DLP = 1194.00 mGy-cm ? CLINICAL [...] ? DD/ 15 ? TD/TT: 05/24/242115 ? Personal Lines Insurance Agent: ? Procedure Note Francisco Jefferson - 05/24/[address] [address] [address] Scan Report Signed Patient: Shaggy German [facility]#: [id number] : 6Acct:[id number] Age/Sex: 68 / MADM Date: 05/24/24 Loc: HO.ED Attending Dr: Ordering Physician: Danuta Gillis MD Date of Service: 05/24/24 Procedure(s): CT facial bones wo IV con Accession Number(s): [id number] cc: Danuta Gillis MD; JAY LAWLER NP Report Number: [id number]: Total DLP = 1194.00 mGy-cm CLINICAL HISTORY: [...] in OV> 05/24/242116 DD/ 15 TD/TT: 05/24/242115 Personal Lines Insurance Agent: [facility] External Provider IMG CT PROCEDURES Edited Result - Final * High Sensitivity Troponin I (05/24/2024 5:44 PM EST) Only the most recent of2 resultswithin the time period is included. Pathologist [facility] [place] TROPONIN I HIGH SENSITIVITY <2.7 <3.5 - 35.0 ng/L [facility] Comment:The [place] high sens itivity Troponin-I results should beused in conjunction with other diagnostic information suchas ECG, clinical observations and information, and patientsymptoms to aid in the diagnosis of CO. 05/24/2024 5:44 PM EST 05/24/2024 5:47 PM EST Generic External Data Provider LAB BLOOD ORDERAB LES Final Result [facility] [address] [place] [phone] * (ABNORMAL) CBC auto differential (05/24/2024 2:55 PM EST) [facility] White Blood Count 4.3(L) 4.8 - 10.8 X10*3/uL [facility] Red Blood Count 4.95 4.60 - 5.80 X10*6/uL [facility] Hemoglobin 15.0 14.0 - 18.0 g/dl [facility] Hematocrit 44.4 42.0 - 52.0 % [facility] Mean Corpuscular Volume 89.7 80.0 - 98.0 fL [facility] Mean Corpuscular Hemoglobin 30.3 27.0 - 33.0 pg [facility] Mean Corpuscular HGB Conc 33.8 31.0 - 36.0 g/dl [facility] Red Cell Distribution Width 12.6 11.0 - 16.0 % [facility] Platelet Count 186 160 - 400 X10*3/uL [facility] Mean Platelet Volume 10.5 9.4 - 12.4 fL [facility] Neutrophils Percent Auto 54.4 45 - 73 % [facility] Imm Gran Pct Auto 0.2 0.0 - 0.4 % [facility] Lymphocytes Percent Auto 34.7 20 - 40 % [facility] Monocytes Percent Auto 7.0 2 - 11 % [facility] Eosinophils Percent Auto 2.3 0 - 4 % [facility] Basophils Percent Auto 1.4 0 - 2 % [facility] NRBC Pct Auto 0.0 0.0 - 0.2 /100WBC [facility] Neutrophils Absolute Auto 2.3 2.0 - 8.3 x10*3/uL [facility] Imm Gran Abs Auto 0.01 0.00 - 0.03 X10*3/uL [facility] Lymphocytes Absolute Auto 1.5 1.2 - 4.9 X10*3/uL [facility] Monocytes Absolute Auto 0.3 0.1 - 1.2 X10*3/uL [facility] Eosinophils Absolute Auto 0.1 0.0 - 0.4 X10*3/uL [facility] Basophils Absolute Auto 0.1 0.0 - 0.2 X10*3/uL [facility] NRBC Abs Auto 0.000 0.0 - 0.012 X10*3/uL [facility] 05/24/2024 2:55 PM EST 05/24/2024 2:59 PM EST us Generic External Data Provider LAB BLOOD ORDERAB LES Final Result Performing Organization Address [facility] de Phone Number [facility] [address] [place] [phone] * Sed Rate by Modified Mishaergren (05/24/2024 2:55 PM EST) Erythrocyte Sedimentation Rate 4 0 - 15 MM/HR [facility] Comment:Patients with polycy themia and many hemoglobin abnormalitiesmay have depressed sed rates whereas patients with anemiamay have elevated sed rates. 05/24/2024 2:55 PM EST 05/24/2024 8:16 PM EST us Generic External Data Provider LAB BLOOD ORDERAB LES Final Result Performing Organization Address [facility] Phone Number [facility] [address] [place] [phone] * C-reactive Protein (05/24/2024 2:55 PM EST) C Reactive Protein 0.15 < or = 0.50 mg/dL [facility] 05/24/2024 2:55 PM EST 05/24/2024 2:59 PM EST us Generic External Data Provider LAB BLOOD ORDERAB LES Final Result Performing Organization Address [facility] de Phone Number [facility] [address] [place] [phone] * Magnesium (05/24/2024 2:55 PM EST) Magnesium 2.1 1.6 - 2.6 mg/dL [facility] 05/24/2024 2:55 PM EST 05/24/2024 2:59 PM EST us Generic External Data Provider LAB BLOOD ORDERAB LES Final Result Performing Organization Address [facility] Co de Phone Number [facility] [address] [place] [phone] * (ABNORMAL) Hepatic Function Panel (05/24/2024 2:55 PM EST) Only the most recent of2 resultswithin the time period is included. Bilirubin, Total 1.7(H) 0.0 - 1.0 mg/dL [facility] Bilirubin, Direct 0.3 0.0 - 0.5 mg/dL [facility] Aspartate Amino Transferase 37 5 - 37 U/L [facility] Alanine Aminotransferase 35 0 - 40 U/L [facility] Total Protein 8.0 6.5 - 8.0 g/dL [facility] Albumin Level 4.4 3.5 - 5.0 g/dL [facility] Alkaline Phosphatase 78 39 - 117 U/L [facility] 05/24/2024 2:55 PM EST 05/24/2024 2:59 PM EST us Generic External Data Provider LAB BLOOD ORDERAB LES Final Result Performing Organization Address [facility] Co de Phone Number [facility] [address] [place] [phone] * (ABNORMAL) Basic Metabolic Panel (05/24/2024 2:55 PM EST) [facility] Sodium 139 135 - 145 mmol/L [facility] Potassium 4.3 3.3 - 5.1 mmol/L [facility] Chloride 107 96 - 108 mmol/L [facility] Carbon Dioxide 25 22 - 29 mmol/L [facility] Anion Gap 11(L) 12 - 20 [facility] Urea Nitrogen (BUN) 10 9 - 16 mg/dL [facility] Creatinine, Serum 0.75 0.5 - 1.4 mg/dL [facility] Creatinine Clr Calc Pharmacy 96.2 [facility] Comment:eGFR (calculated fro m the MDRD study equation) and eCrCl(calculated from the Cockcroft-Gault equation) are based ondifferent parameters and may not yield comparable results.If eCrCl result is absurd, please check patient'sheight/weight. Estimated Glomerular Filt Rate >60 [facility] Comment:Chronic Kidney Disea se: Estimated GFR < 60 mL/min/1.47b6Kmztms Kidney Disease: Estimated GFR < 15 mL/min/1.73m2 Glucose 83 60 - 115 mg/dL [facility] Calcium 9.3 8.4 - 10.2 mg/dL [facility] 05/24/2024 2:55 PM EST 05/24/2024 2:59 PM EST us Generic External Data Provider LAB BLOOD ORDERAB LES Final Result Performing Organization Address [facility] Co de Phone Number [facility] [address] [place] [phone] * POCT Rapid Influenza B IRBY ID NOW (05/21/2024 10:40 AM EST) Influenza B Negative Negative, Indeterminate [facility] QC Media Lot # [id number] [facility] Lot# Expiration Date [facility] Swab 05/21/2024 10:4 0 AM EST Alberto Malone MD POINT OF CARE TEST EN TER/EDIT ORDERABLES Final Result Performing Organization Address [facility]/ZIP Co de Phone Number [facility] [address] [place] [phone] * POCT Rapid Influenza A IRBY ID NOW (05/21/2024 10:40 AM EST) Influenza A Negative Negative, Indeterminate [facility] QC Media Lot # [id number] [facility] Lot# Expiration Date [facility] Swab 05/21/2024 10:4 0 AM EST Alberto Malone MD POINT OF CARE TEST EN TER/EDIT ORDERABLES Final Result [facility] [address] [place] [phone] [phone] * POCT Rapid Covid-19 BinaxNOW (05/21/2024 10:40 AM EST) Pathologist [facility] [place] Rapid COVID Ag Negative QC Media Lot # [id number] Lot# Expiration Date [id number] Swab 05/21/2024 10:4 0 AM EST Alberto Malone MD POINT OF CARE TEST EN TER/EDIT ORDERABLES Final Result * POCT GISSEL-14 Urine Drug Screen (05/18/2024 9:05 AM EST) Only the most recent of4 resultswithin the time period is included. Pathologist [facility] [place] THC Negative Cocaine Screen, Urine Negative Opiate [...] CARE TEST ENTER/EDIT OR DERABLES Final Result * (ABNORMAL) Lipid Panel, Standard (04/05/2024 8:02 AM EST) Only the most recent of2 resultswithin the time period is included. Pathologist [facility] [place] Triglycerides 201(H) <150 mg/dL [facility] Comment:Desirable Triglyceri de: less than 150 mg/dLBorderline High Triglyceride 150-199 mg/dLHigh Triglyceride: 200-499 mg/dLVery High Triglyceride: greater than or equal to 5OO mg/dL Cholesterol 244(H) <200 mg/dL [facility] Comment:Desirable Cholestero l: less than 200 mg/dLBorderline High Cholesterol: 200-239 mg/dLHigh Cholesterol: greater than 239 mg/dL LDL Cholesterol Calculated 166(H) <100 mg/dL [facility] Comment:Desirable LDL: less than 100 mg/dLNear Optimal/Above Optimal LDL: 110- 129 mg/dLBorderline High LDL: 130-159 mg/dLHigh LDL: 160-189 mg/dLVery High LDL: greater than or equal to 190 mg/dL HDL Cholesterol 38(L) >40 mg/dL [facility] Comment:Desirable HDL: great er than 40 mg/dL Note: This HDL assay may give artificially low results in patients with liver disease. 04/05/2024 8:02 AM EST 04/05/2024 10:57 AM EST Jay ANDERSON LAB BLOOD ORDERABLES Final Resul t Performing Organization Address [facility] de Phone Number [facility] [address] [place] [phone] * Syphilis Screen (03/23/2024 9:27 AM EST) Pathologist [facility] Syphilis Screen Nonreactive Nonreactive [facility] Blood 03/23/2024 9:27 AM EST 03/23/2024 11:52 AM EST Montse Quintanilla MD LAB BLOOD ORDERABLES Final Resul t Performing Organization Address [facility] Co de Phone Number [facility] [address] [place] [address] [phone] * Hepatitis C Viral RNA, Quantitative, Real-Time PCR (03/23/2024 9:27 AM EST) Hepatitis C Viral Load <15 NOT DETECTED NOT DETECTED IU/mL [facility] HCV Log PCR <1.18 NOT DETECTED NOT DETECTED Log IU/mL [facility] Comment:For additional infor mation, please refer tohttp://education.[employer].Apportable/faq/NLX82g8(This link is being provided for informational/educational purposes only.)THIS TEST WAS PERFORMED AT:[facility] [place] [phone] REYES MD Blood 03/23/2024 9:27 AM EST 03/23/2024 11:52 AM EST Montse Quintanilla MD LAB BLOOD ORDERABLES Final Resul t Performing Organization Address [facility] Co de Phone Number [facility] [address] [place] [address] [phone] * HIV-1/2 Antigen and Antibodies, Fourth Generation, with Reflexes (03/23/2024 9:27 AM EST) HIV AB/AG Nonreactive Nonreactive [facility] Comment:HIV-1 p24 Ag and/or HIV-1/HIV-2 Ab not detected.A test result that is nonreactive does not exclude thepossibility of exposure to or infection with HIV-1 and/orHIV-2. Nonreactive results in this assay for individualswith prior exposure to HIV-1 and/or HIV-2 may be due toantigen and antibody levels that are below the limit ofdetection of this assay.The [employer] HIV Ag/Ab Combo assay result andsupplemental assay results should be interpreted inconjunction with the patient's clinical presentation,history and other laboratory results. If the results areinconsistent with clinical evidence, additional testing issuggested to confirm the result. Blood Venous blood specimen / Unknown 03/23/2024 9:27 AM EST 03/23/2024 11:52 AM EST Montse Quintanilla MD LAB BLOOD ORDERABLES Final Resul t Performing Organization Address [facility]/ZIP Co de Phone Number [facility] [address] [place] [address] [phone] * (ABNORMAL) Comprehensive Metabolic Panel (03/23/2024 9:27 AM EST) Sodium 141 135 - 145 mmol/L [facility] Potassium 3.8 3.3 - 5.1 mmol/L [facility] Chloride 107 96 - 108 mmol/L [facility] Carbon Dioxide 28 22 - 29 mmol/L [facility] Anion Gap 10(L) 12 - 20 [facility] Urea Nitrogen (BUN) 12 9 - 16 mg/dL [facility] Creatinine, Serum 0.82 0.5 - 1.4 mg/dL [facility] Estimated Glomerular Filt Rate >60 [facility] Comment:Chronic Kidney Disea se: Estimated GFR < 60 mL/min/1.47o9Yevxbk Kidney Disease: Estimated GFR < 15 mL/min/1.73m2 Glucose 94 60 - 115 mg/dL [facility] Calcium 8.7 8.4 - 10.2 mg/dL [facility] Bilirubin, Total 1.1(H) 0.0 - 1.0 mg/dL [facility] Aspartate Amino Transferase 27 5 - 37 U/L [facility] Alanine Aminotransferase 22 0 - 40 U/L [facility] Total Protein 7.7 6.5 - 8.0 g/dL [facility] Albumin Level 4.3 3.5 - 5.0 g/dL [facility] Alkaline Phosphatase 73 39 - 117 U/L [facility] Blood Venous blood specimen / Unknown 03/23/2024 9:27 AM EST 03/23/2024 11:52 AM EST us Jay Lawler [facility] LAB BLOOD ORDERABLES Final Resul t [facility] [address] [place] [phone] * Drug Monitoring, Opiates Expanded, Quantitative, Urine (02/24/2024 9:20 AM EST) Codeine, Urine NEGATIVE [facility] Hydrocodone, Ur NEGATIVE [facility] Oxycodone, Urine NEGATIVE [facility] Oxycodone GC/MS Note SEE NOTE [facility] Comment:This drug testing is for medical treatment only.Analysis was performed as non-forensic testing andthese results should be used only by healthcareproviders to render diagnosis or treatment, or tomonitor progress of medical conditions.LDT Notes:Confirmation tests were developed and their analyticalperformance characteristics have been determined by[employer]. It has not been cleared or approvedby the FDA. This assay has been validated pursuant [place] CLIA regulations and is used for clinical purposes.Healthcare Providers needing Interpretation assistance,please contact us at [phone] ( )M-F, 8am to 10pm ESTTHIS TEST PERFORMED AT:[employer] [place] [phone] DIRECTOR: ZANDRA REYES MD Morphine, Urine NEGATIVE [facility] Hydromorphone, Urine NEGATIVE [facility] Oxymorphone, Urine NEGATIVE [facility] Opiates GC/MS Note SEE NOTE [facility] Comment:This drug testing is for medical treatment only.Analysis was performed as non-forensic testing andthese results should be used only by healthcareproviders to render diagnosis or treatment, or tomonitor progress of medical conditions.LDT Notes:Confirmation tests were developed and their analyticalperformance characteristics have been determined by[employer]. It has not been cleared or approvedby the FDA. This assay has been validated pursuant [place] CLIA regulations and is used for clinical purposes.Healthcare Providers needing Interpretation assistance,please contact us at [phone] ( )M-F, 8am to 10pm ESTTHIS TEST PERFORMED AT:[facility] [place] [phone] DIRECTOR: ZANDRA REYES MD Norhydrocodone, Urine NEGATIVE [facility] Noroxycodone, Urine NEGATIVE [facility] 02/24/2024 9:20 AM EST 02/24/2024 12:59 PM EST Darian Mcgill MD LAB URINE ORDERABLES Final Resul t [facility] [address] [place] [address] [phone] * Hm Colonoscopy (12/16/2019 5:19 PM EDT) Historical Provider HEALTH MAINTENANCE Final Result from Last 3 Months or Most Recently Relevant to Health Maintenance Insurance [facility] - [facility]CO DENTAL - [facility] Care Teams Telephone Sales Agent Relationship Specialty Start Date End Date Jay Lawler ANP [address] [place] [id number] PCP - General Family Medicine 08/23/19
--- OUTSIDE RECORDS SUMMARY | 2024-05-26 13:48 | XMS_ITS | Encounter Summary ---
Author Organization [employer] Address [address] [place] [address] 7t [place] [address] Care Team Providers Care Tube Cleaner Name Role Phone Waleska Baeza Primary Care Provider [phone] Reason for Visit * Reason Comments Med Refill Encounter Details Date Type Department Care Team (Late Contact Info) Description 08/31/2022 Refill [facility] MEDICINE [address] [place] [address] Montse Quintanilla MD [address] [place] [address] Opioid type dependence, continuous (CMS/HCC) Social History Tobacco Use Types Packs/Day Years Used Date Smoking Tobacco: Every Day Cigarettes Passive Smoke Exposure: Current Smokeless Tobacco: Never Alcohol Use Standard Drinks/Week [...] suspected to have Coronavirus/COVID-19? No / Unsure 08/19/2022 12:49 PM EDT documented as of this encounter Plan of Treatment Upcoming Encounters Date Type Department Care Team (Late Contact Info) Description 05/30/2024 10:30 AM EST Office Visit [facility] OPTOMETRY [address] [place] [address] Khloe Amezcua OD [address] [place] [address] 06/09/2024 1:15 PM EST Office Visit [address] [phone] Waleska Baeza ANP [address] [place] [address] [phone] 06/15/2024 9:15 AM EDT Office Visit [address] [address] Montse Quintanilla MD [address] [place] [address] [phone] documented as of this encounter Visit Diagnoses Diagnosis Opioid type dependence, continuous (CMS/HCC) Opioid type dependence, continuous documented in this encounter Care Teams Tube Cleaner Relationship Specialty Start Date End Date Waleska Baeza ANP [address] [place] [address] [phone] PCP - General Family Medicine 08/23/19 documented as of this encounter
--- OUTSIDE RECORDS SUMMARY | 2024-05-26 13:48 | XMS_ITS | Clinical Summary ---
Author Organization [address] [place] [address] Address [address] [place] [address] Phone Care Team Providers Care Gambling Cashier Name Role Phone Loretta Martinez Primary Care Provider [phone] Medications buprenorphine-na loxone (SUBOXONE) 8-2 mg per SL tablet Place under the tongue. 1/2 tab daily tid Active buPROPion SR (WELLBUTRIN SR) 200 mg 12 hr tablet Take 200 mg by mouth 2 times daily. Active cloNIDine (CATAPRES) 0.1 mg tablet Take 0.1 mg by mouth 3 times daily as needed. Active QUEtiapine XR (SEROquel XR) 150 mg 24 hr tablet Take by mouth. At hs Active Active Problems Problem Noted Date Diagnosed Date Hepatitis C 02/04/2012 Social History Tobacco Use Types Packs/Day Years Used Date Smoking Tobacco: Never Assessed Sex and Gender Information Value Date Recorded Sex Assigned at Not on file Legal Sex Male 12:25 PM EST Gender Identity Not on file Sexual Orientation Not on file Plan of Treatment Upcoming Encounters Date Type Department Care Team ([facility] Contact Info) Description 05/30/2024 2:00 PM EST Office Visit Orthopedic Surgery - [place] [phone] [phone] Marcel Nagy DPM [address] [address] Health Maintenance Due Date Last Done Comments DTaP,Tdap,and Td Vaccines (1 - Tdap) 07/12/1974 Pneumococcal Vaccine: 50+ Ye ars (1 of 1 - PCV) 07/12/2005 Zoster Vaccines (1 of 2) 07/12/2005 COVID-19 Vaccine ( - 2023-2 5 season) 2023 Influenza Vaccine (#1) 2023 Abdominal Aortic Aneurysm (A AA) Screen 02/10/2024 Cholesterol Screening (Lipid Panel) 02/10/2024 Colorectal Cancer Screening: Colonoscopy 02/10/2024 Depression Screening 02/10/2024 Falls Risk Assessment 02/10/2024 Hepatitis C Screening 02/10/2024 Social Influencers of Health Screening 02/10/2024 RSV Immunization Patients 60 + Years Old (1 - 1-dose 75+ series) 07/12/2030 HIB Vaccines Aged Out No longer eligi ble based on patient's age to complete this topic HPV Vaccines Aged Out No longer eligi ble based on patient's age to complete this topic Hepatitis A Vaccines Aged Out No long er eligible based on patient's age to complete this topic Hepatitis B Vaccines Aged Out No long er eligible based on patient's age to complete this topic IPV Vaccines Aged Out No longer eligi ble based on patient's age to complete this topic MMR Vaccines Aged Out No longer eligi ble based on patient's age to complete this topic Meningococcal ACWY Vaccine Aged Out N o longer eligible based on patient's age to complete this topic Meningococcal B Vacine Aged Out No lo nger eligible based on patient's age to complete this topic RSV Immunization Patients Un loki 20 months Aged Out No longer eligible b ased on patient's age to complete this topic Varicella Vaccines Aged Out No longer eligible based on patient's age to complete this topic Care Teams Gambling Cashier Relationship Specialty Start Date End Date Loretta Martinez DO [address] [place] [address] PCP - General Internal Medicine 12/15/11
--- OUTSIDE RECORDS SUMMARY | 2024-05-26 13:48 | XMS_ITS | Encounter Summary ---
Author Organization [employer] Address [address] [facility] 7t [place] [address] Care Team Providers Care Fan Installer Name Role Phone Waleska Baeza JUSTIN Primary Care Provider [phone] Reason for Visit * Reason Comments RC Recovery Supports Encounter Details Date Type Department Care Team ([facility] st Contact Info) Description 05/06/2024 Patient Outreach [facility] MEDICINE [address] [place], [place] [phone] Nav Carcamo [address] [place], [place] [phone] Recovery Supports Social History Tobacco Use Types [...] encounter Progress Notes * Nav Carcamo - 05/06/2024 1:13 PM EST I met with Shaggy today. Setting: in person at [facility] Recovery Wellness Goals worked on: Social Stability Action taken/next steps: Offered person centered recovery support Additional comments: Today, Shaggy came to the recovery center, and I was able to assist him by translating a letter that belongs to his son regarding his son's taxes. I also accompanied him to the email so he could send the documents his son needs to complete this year's taxes. Nav Carcamo documented in this encounter Plan of Treatment Upcoming Encounters Date Type Department Care Team (Late st Contact Info) Description 05/30/2024 10:30 AM EST Office Visit [facility] OPTOMETRY [address] [place] [address] Khloe Amezcua, OD [address] [place] [address] 06/09/2024 1:15 PM EST Office Visit [facility] MEDICINE [address] [place] [address] Waleska Baeza ANP [address] [place] [address] 06/15/2024 9:15 AM EDT Office Visit [address] [address] Montse Quintanilla MD [address] [place], [place] [phone] documented as of this encounter Visit Diagnoses Not on filedocumented in this encounter Additional Health Concerns Assessment Noted Time PHQ-9 Depression Total Score: 3 04/21/19 25 1:02 PM EST documented as of this encounter Care Teams Fan Installer Relationship Specialty Start Date End Date Waleska Baeza ANP [address] [place] [address] PCP - General Family Medicine 08/23/19 documented as of this encounter
--- OUTSIDE RECORDS SUMMARY | 2024-05-26 13:48 | XMS_ITS | Encounter Summary ---
Author Organization [employer] Address [address] [facility] 7t [place] [address] Care Team Providers Care Entertainment Musician Name Role Phone Waleska Baeza Primary Care Provider [phone] Reason for Visit * Reason Comments Med Refill Encounter Details Date Type Department Care Team (Late Contact Info) Description 08/11/2022 Refill [facility] WALK-IN CENTER [address] [place] [address] Alexandria Alvarez FNP [address] [place] [address] Costochondritis Social History Tobacco Use Types Packs/Day Years Used Date Smoking Tobacco: Every Day Cigarettes Smokeless Tobacco: Never Alcohol Use Standard [...] suspected to have Coronavirus/COVID-19? No / Unsure 08/13/2022 8:50 AM EDT documented as of this encounter Plan of Treatment Upcoming Encounters Date Type Department Care Team (Late Contact Info) Description 05/30/2024 10:30 AM EST Office Visit [facility] OPTOMETRY [address] [place], [place] [phone] Khloe Amezcua, OD [address] [place] [address] 06/09/2024 1:15 PM EST Office Visit [address] [phone] Waleska Baeza ANP [address] [place] [address] 06/15/2024 9:15 AM EDT Office Visit [address] [phone] Montse Quintanilla MD [address] [place] [phone] documented as of this encounter Visit Diagnoses Diagnosis Costochondritis Tietze's disease documented in this encounter Care Teams Entertainment Musician Relationship Specialty Start Date End Date Waleska Baeza ANP [address] [place] [address] [phone] PCP - General Family Medicine 08/23/19 documented as of this encounter
--- OUTSIDE RECORDS SUMMARY | 2024-05-26 13:48 | XMS_ITS | Encounter Summary ---
Author Organization [facility] Address [address] [place] [address] 7t [place] [address] Care Team Providers Care Printer'S Devil Name Role Phone Waleska Baeza JUSTIN Primary Care Provider [phone] Reason for Visit * Reason Comments Med Refill Encounter Details Date Type Department Care Team (Late Contact Info) Description 12/26/2022 Refill [facility] WALK[facility]IN CENTER [address] [place] [address] Alexandria Pablo, TELEVISION ENGINEER Tinea pedis of both feet Social History Tobacco Use Types Packs/Day Years Used Date Smoking Tobacco: Former Cigarettes Passive Smoke Exposure: Current Smokeless Tobacco: Never Comments:Smoking 2 cigarette s/daily Alcohol Use Standard Drinks/Week Comments Never 0 (1 standard drink = 0.6 oz pur e alcohol) Depression Answer Date Recorded Patient Health Questionnaire-9 Score 4 09/10/2022 Depression Answer Date Recorded Patient Health Questionnaire-2 Score 2 09/10/2022 Sex and Gender Information Value Date Recorded Sex Assigned at Male 02/03/2022 10:21 AM EDT Legal Sex Male 10:21 AM EDT Gender Identity Male 02/03/2022 10:21 AM EDT Sexual Orientation Choose not to disclose 2021 10:21 AM EDT documented as of this encounter Plan of Treatment Upcoming Encounters Date Type Department Care Team (Late Contact Info) Description 05/30/2024 10:30 AM EST Office Visit [facility] OPTOMETRY [address] [place] [address] Khloe Amezcua, OD 230 [place] [address] 06/09/2024 1:15 PM EST Office Visit [facility] MEDICINE [address] [place] [address] Waleska Baeza ANP [address] [place] [address] 06/15/2024 9:15 AM EDT Office Visit [facility] [address] [place] [address] Montse Quintanilla MD [address] [place] [address] documented as of this encounter Visit Diagnoses Diagnosis Tinea pedis of both feet documented in this encounter Additional Health Concerns Assessment Noted Time PHQ-9 Depression Total Score: 4 09/11/19 23 10:52 AM EDT documented as of this encounter Care Teams Printer'S Devil Relationship Specialty Start Date End Date Waleska Baeza ANP [address] [place] [phone] PCP - General Family Medicine 08/23/19 documented as of this encounter
--- OUTSIDE RECORDS SUMMARY | 2024-05-26 13:48 | XMS_ITS | Encounter Summary ---
Author Organization [employer] Address [address] [facility] 7t [place] [address] Care Team Providers Care Solar Energy System Installer Helper Name Role Phone Waleska Baeza Primary Care Provider Reason for Visit * Reason Comments Pre-visit Planning SDOH Screening negat shashi and Tobacco screening negative Encounter Details Date Type Department Care Team ([facility] st Contact Info) Description 05/04/2024 Patient Outreach [facility] MEDICINE [address] [place], [place] [phone] Waleska Baeza ANP [address] [place] [address] Pre-visit Planning (SDOH Screening negative and Tobacco screening negative) Social History Tobacco Use Types Packs/Day Years [...] as of this encounter Progress Notes * Lesly Dsouza - 05/04/2024 3:17 PM EST HERMELINDA Coreas placed successful outbound call to patient for pre-visit planning. Patient name and confirmed. Patient confirms appt date and time, and has transportation arrangements. Biggest concern for appointment at this time is pain around the heart for so many years, has concerns in regards of Seroquel medication and few years ago probably more than 3 years ago they did a denture but have not been able to use it because it don't fit. He tried going back to the dentist but they told him they couldn't help him because the dentist does not work there anymore. Patient advised to bring to appointment a photo id and insurance card. Appropriate screenings completed in anticipation of appointment. Tobacco screening positive. Will need counseling. documented in this encounter Plan of Treatment Upcoming Encounters Date Type Department Care Team (Late st Contact Info) Description 05/30/2024 10:30 AM EST Office Visit [facility] OPTOMETRY [address] [place] [address] Seven, Khloe, OD [address] [place], [place] [phone] 06/09/2024 1:15 PM EST Office Visit [address] [phone] Waleska Baeza ANP [address] [place], [place] [phone] 06/15/2024 9:15 AM EDT Office Visit [address] [phone] Montse Quintanilla MD [address] [place], [place] [phone] documented as of this encounter Visit Diagnoses Not on filedocumented in this encounter Additional Health Concerns Assessment Noted Time PHQ-9 Depression Total Score: 3 04/21/19 25 1:02 PM EST documented as of this encounter Care Teams Solar Energy System Installer Helper Relationship Specialty Start Date End Date Waleska Baeza ANP [address] [place] [address] [phone] PCP - General Family Medicine 08/23/19 documented as of this encounter
--- OUTSIDE RECORDS SUMMARY | 2024-05-26 13:48 | XMS_ITS | Encounter Summary ---
Author Organization [employer] Address [address] [facility] 7t [place] [address] Care Team Providers Care Aircraft Landing Gear Inspector Name Role Phone Waleska Baeza JUSTIN Primary Care Provider [phone] Encounter Details Date Type Department Care Team (Late st Contact Info) Description 08/02/2023 Orders Only [facility] MEDICINE [address] [place], [place] [phone] Provider, MD Tamiko Social History Tobacco Use Types Packs/Day Years Used Date Smoking Tobacco: Every Day Cigarettes Passive Smoke Exposure: Past Smokeless Tobacco: Never Comments:Smoking 2 cigarette s/daily Alcohol Use Standard Drinks/Week Comments Never 0 (1 standard drink = 0.6 oz pur e alcohol) Depression Answer Date Recorded Patient Health Questionnaire-9 Score 4 09/10/2022 Housing Stability Answer Date Recorded What is your housing situation today? I have santiago greenberg 01/19/[address] you li ve. Do you have problems with any of the following? None of the above 01/19/2023 Food Insecurity Answer Date Recorded Within the past 12 months, y ou worried that your food would run out before you got money to buy more: Never True 01/19/2023 Within the past 12 months,th e food you bought just didn't last and you didn't have enough money to get more: Never True Transportation Answer Date Recorded In the past 12 months, has l ack of transportation kept you from medical appts, meetings, work or from getting things needed for daily living? Yes, it has kept me from medical appointments or getting medications. 01/12/2023 Utilities Answer Date Recorded In the past 12 months, has t he electric, gas, oil or water company threatened to shut off services in your home? No 01/19/2023 Depression Answer Date Recorded Patient Health Questionnaire-2 [...] Description 05/30/2024 10:30 AM EST Office Visit [facility] OPTOMETRY [address] [place] [address] Khloe Amezcua, OD 230 [place] [address] 06/09/2024 1:15 PM EST Office Visit [facility] MEDICINE [address] [place] [address] Waleska Baeza ANP [address] [place] [address] 06/15/2024 9:15 AM EDT Office Visit [facility] MEDICINE [address] [place] [address] Montse Quintanilla MD [address] [place] [address] documented as of this encounter Procedures Procedure Name Priority Date/Time Associated Diagnosis Comments HM COLONOSCOPY Routine 12/16/2019 5:19 PM EDT documented in this encounter Results * Hm Colonoscopy (12/16/2019 5:19 PM EDT) us Historical Provider HEALTH MAINTENANCE Final Result documented in this encounter Visit Diagnoses Not on filedocumented in this encounter Additional Health Concerns Assessment Noted Time PHQ-9 Depression Total Score: 4 09/11/19 23 10:52 AM EDT documented as of this encounter Care Teams Aircraft Landing Gear Inspector Relationship Specialty Start Date End Date Waleska Baeza ANP [address] [place] [address] PCP - General Family Medicine 08/23/19 documented as of this encounter
--- OUTSIDE RECORDS SUMMARY | 2024-05-26 13:48 | XMS_ITS | Encounter Summary ---
Author Organization [employer] Address [address] [facility] 7t [place] [address] Care Team Providers Care Xerox Machine Assembler Name Role Phone Waleska Baeza JUSTIN Primary Care Provider [phone] Reason for Visit * Reason Comments Walk-In headache and fever l ast night; no sore throat Encounter Details Date Type Department Care Team (Latest Contact Info) Description 05/21/2024 10:00 AM EST Office Visit [facility] [address] [place], [place] [phone] Alberto Tello MD [address] [place], [place] [phone] Acute nonintractable headache, unspecified headache type (Primary Dx) Social History Tobacco Use Types [...] Sign Reading Time Taken Comments Blood Pressure 128/83 05/21/2024 10:11 AM EST Pulse 70 05/21/2024 10:11 AM EST Temperature 36.9 ??C (98.4 ??F) 05/21/2024 10:[address] Respiratory Rate 20 05/21/2024 10:11 AM EST Oxygen Saturation 99% 05/21/2024 10:11 AM EST Inhaled Oxygen Concentration - - Weight 80 kg (176 lb 6.4 oz) 05/21/2024 10:11 AM EST Height 180.3 cm (5' 11 ) 05/21/2024 10:11 AM EST Body Mass Index 24.6 05/21/2024 10:11 AM EST documented in this encounter Progress Notes * Alberto Malone MD - 05/21/2024 10:00 AM EST SUBJECTIVE Shaggy Saucedo is a 68 y.o. male who presents for Walk-In (headache and fever last night; no sore throat ). Headache This is a new problem. The current episode started in the past 7 days. The problem occurs intermittently. The problem has been gradually improving. The pain is located in the Bilateral region. The pain does not radiate. The quality of the pain is described as dull. The pain is at a severity of 3/10. Nothing aggravates the symptoms. He has tried nothing for the symptoms. Review of Systems Neurological: Positive for headaches. Allergies Allergen Reactions Metronidazole Rash Other reaction(s): Rash OBJECTIVE Vitals: 05/21/24 1011 BP: 128/83 BP Location: Left arm Patient Position: Sitting BP Cuff Size: Adult Pulse: 70 Resp: 20 Temp: 98.4 ??F (36.9 ??C) TempSrc: Oral SpO2: 99% Weight: 176 lb 6.4 oz (80 kg) Height: 5' 11 (1.803 m) Physical Exam Vitals reviewed. Constitutional: Appearance: Normal appearance. HENT: Head: Normocephalic and atraumatic. Right Ear: Tympanic membrane, ear canal and external ear normal. Left Ear: Tympanic membrane, ear canal and external ear normal. Nose: Nose normal. Mouth/Throat: Lips: Rodey. Mouth: Mucous membranes are dry. Pharynx: Oropharynx is clear. Uvula midline. Eyes: General: Lids are normal. Vision grossly intact. Gaze aligned appropriately. Extraocular Movements: Extraocular movements intact. Conjunctiva/sclera: Conjunctivae normal. Neck: Trachea: Trachea normal. Meningeal: Brudzinski's sign and Kernig's sign absent. Cardiovascular: Rate and Rhythm: Normal rate and regular rhythm. Pulmonary: Effort: Pulmonary effort is normal. Breath sounds: Normal breath sounds. Musculoskeletal: Cervical back: Full passive range of motion without pain, normal range of motion and neck supple. Skin: General: Skin is warm. Neurological: General: No focal deficit present. Mental Status: He is alert and oriented to person, place, and time. Mental status is at baseline. Cranial Nerves: Cranial nerves 2-12 are intact. Sensory: Sensation is intact. Motor: Motor function is intact. Coordination: Coordination is intact. Gait: Gait is intact. Deep Tendon Reflexes: Reflexes are normal and symmetric. Psychiatric: Behavior: Behavior is cooperative. Assessment/Plan Problem List Items Addressed This Visit Acute nonintractable headache - Primary Pt here with c/o new onset of bitemporal headache described when severe 6/10 right now approximately 3/10 . Thinks he might have had a fever yesterday but did not check his temperature just by touch.Denies any other associated symptoms Exam within normal [...] ER Pt agreeable with plan, verbalized understanding. Relevant Medications acetaminophen (Tylenol) 500 MG tablet ibuprofen 400 MG tablet Other Relevant Orders POCT Rapid Covid-19 BinaxNOW (Completed) POCT Rapid Influenza A IRBY ID NOW (Completed) POCT Rapid Influenza B IRBY ID NOW (Completed) documented in this encounter Miscellaneous Notes * Assessment & Plan Note - Alberto Malone MD - 05/21/2024 10:44 AM EST Associated Problem(s): Acute nonintractable headache Pt here with c/o new onset of bitemporal headache described when severe 6/10 right now approximately 3/10 . Thinks he might have had a fever yesterday but did not check his temperature just by touch.Denies any other associated symptoms Exam within normal [...] ER Pt agreeable with plan, verbalized understanding. documented in this encounter Plan of Treatment Upcoming Encounters Date Type Department Care Team (Late st Contact Info) Description 05/30/2024 10:30 AM EST Office Visit [facility] [address] [place] [address] Khloe Amezcua, OD [address] [place] [address] 06/09/2024 1:15 PM EST Office Visit [facility] [address] [place] [address] Waleska Baeza ANP [address] [place] [address] 06/15/2024 9:15 AM EDT Office Visit [facility] [address] [place] [address] Montse Quintanilla MD [address] [place] [address] documented as of this encounter Procedures Procedure Name Priority Date/Time Associated Diagnosis Comments POCT INFLUENZA B (ID NOW RAPID MOLECULAR) Routine 05/21/2024 10:40 AM EST Acute nonintractable headache, unspecified headache type POCT INFLUENZA A (ID NOW RAPID MOLECULAR) Routine 05/21/2024 10:40 AM EST Acute nonintractable headache, unspecified headache type POCT RAPID COVID ANTIGEN Routine 05/21/2024 10:40 AM EST Acute nonintractable headache, unspecified headache type documented in this encounter Results * POCT Rapid Influenza B IRBY ID NOW (05/21/2024 10:40 AM EST) [facility] Signature Influenza B Negative Negative, Indeterminate [facility] QC Media Lot # [id number] [facility] Lot# Expiration Date 8, [facility] Swab 05/21/2024 10:4 0 AM EST us Alberto Malone MD POINT OF CARE TEST EN TER/EDIT ORDERABLES Final Result [facility] [address] [place] [address] [phone] * POCT Rapid Influenza A IRBY ID NOW (05/21/2024 10:40 AM EST) Influenza A Negative Negative, Indeterminate [facility] QC Media Lot # [id number] [facility] Lot# Expiration Date 8, [facility] Swab 05/21/2024 10:4 0 AM EST us Alberto Malone MD POINT OF CARE TEST EN TER/EDIT ORDERABLES Final Result [facility] [address] [place] [address] [phone] * POCT Rapid Covid-19 BinaxNOW (05/21/2024 10:40 AM EST) Pathologist [facility] Rapid COVID Ag Negative QC Media Lot # [id number] Lot# Expiration Date 7,026 Swab 05/21/2024 10:4 0 AM EST Alberto Malone MD POINT OF CARE TEST EN TER/EDIT ORDERABLES Final Result documented in this encounter Visit Diagnoses Diagnosis Acute nonintractable headache, unspecified headache type- Primary documented in this encounter Additional Health Concerns Assessment Noted Time PHQ-9 Depression Total Score: 3 04/21/19 25 1:02 PM EST documented as of this encounter Care Teams Xerox Machine Assembler Relationship Specialty Start Date End Date Waleska Baeza ANP [address] [place] [address] PCP - General Family Medicine 08/23/19 documented as of this encounter
--- OUTSIDE RECORDS SUMMARY | 2024-05-26 13:48 | XMS_ITS | Encounter Summary ---
Author Organization [employer] Address [address] [facility] 7t [place] [address] Care Team Providers Care Meat Cooler Name Role Phone Waleska Baeza JUSTIN Primary Care Provider [phone] Reason for Visit * Reason Comments RC Recovery Supports Encounter Details Date Type Department Care Team ([facility] st Contact Info) Description 05/02/2024 Patient Outreach [facility] [address] [place], [place] [phone] Nav Carcamo [address] [place], [place] [phone] Recovery Supports Social History Tobacco Use Types [...] Recorded Patient Health Questionnaire-2 Score 3 04/21/2024 Sex and Gender Information Value Date Recorded Sex Assigned at Male 02/03/2022 10:21 AM EDT Legal Sex Male 10:21 AM EDT Gender Identity Male 02/03/2022 10:21 AM EDT Sexual Orientation Choose not to disclose 2021 10:21 AM EDT documented as of this encounter Progress Notes * Nav Carcamo - 05/02/2024 12:45 PM EST I met with Shaggy today. Setting: in person at [facility] Recovery Wellness Goals worked on: Social Stability Action taken/next steps: Offered person centered recovery support and Attended alcohol and drug free activity Additional comments: Nav Carcamo documented in this encounter Plan of Treatment Upcoming Encounters Date Type Department Care Team (Late st Contact Info) Description 05/30/2024 10:30 AM EST Office Visit [facility] [address] [place] [address] Khloe Amezcua, NELSY [address] [place] [address] 06/09/2024 1:15 PM EST Office Visit [facility] [address] [place] [address] Waleska Baeza ANP [address] [place] [address] 06/15/2024 9:15 AM EDT Office Visit [facility] [address] [place] [address] Montse Quintanilla MD [address] [place] [address] documented as of this encounter Visit Diagnoses Not on filedocumented in this encounter Additional Health Concerns Assessment Noted Time PHQ-9 Depression Total Score: 3 04/21/19 25 1:02 PM EST documented as of this encounter Care Teams Meat Cooler Relationship Specialty Start Date End Date Waleska Baeza ANP [address] [place] [address] PCP - General Family Medicine 08/23/19 documented as of this encounter
--- OUTSIDE RECORDS SUMMARY | 2024-05-26 13:48 | XMS_ITS | Encounter Summary ---
Author Organization [employer] Address [address] [facility] 7t [place] [address] Care Team Providers Care Fiberglass Bonding Machine Tender Name Role Phone Waleska Baeza JUSTIN Primary Care Provider [phone] Reason for Visit * Reason Comments RC Recovery Supports Encounter Details Date Type Department Care Team ([facility] st Contact Info) Description 04/28/2024 Patient Outreach [facility] [address] [place], [place] [phone] Nav Carcamo [address] [place] [address] Recovery Supports Social History Tobacco Use Types [...] encounter Progress Notes * Nav Carcamo - 04/28/2024 11:29 AM EST I met with Shaggy today. Setting: in person at [facility] Recovery Wellness Goals worked on: Social Stability Action taken/next steps: Offered person centered recovery support and Attended alcohol and drug free activity Additional comments: The participant visited the recovery center, where he had coffee and a snack. He shared how he was doing and how his day was going with the [employer]. Nav Carlos Alberto documented in this encounter Plan of Treatment Upcoming Encounters Date Type Department Care Team (Late st Contact Info) Description 05/30/2024 10:30 AM EST Office Visit [facility] [address] [place] [address] Khloe Amezcua, OD [address] [place] [address] 06/09/2024 1:15 PM EST Office Visit [facility] [address] [place] [address] Waleska Baeza ANP [address] [place] [address] 06/15/2024 9:15 AM EDT Office Visit [facility] [address] [place] [address] Montse Quintanilla MD [address] [place] [address] documented as of this encounter Visit Diagnoses Not on filedocumented in this encounter Additional Health Concerns Assessment Noted Time PHQ-9 Depression Total Score: 3 04/21/19 25 1:02 PM EST documented as of this encounter Care Teams Fiberglass Bonding Machine Tender Relationship Specialty Start Date End Date Waleska Baeza ANP [address] [place] [address] PCP - General Family Medicine 08/23/19 documented as of this encounter
--- OUTSIDE RECORDS SUMMARY | 2024-05-26 13:48 | XMS_ITS | Encounter Summary ---
Author Organization [employer] Address [address] [facility] 7t [place] [address] Care Team Providers Care Zoogler Name Role Phone Waleska Baeza JUSTIN Primary Care Provider [phone] Encounter Details Date Type Department Care Team (Late st Contact Info) Description 06/16/2023 Orders Only [facility] [address] [place], [place] [phone] Montse Quintanilla MD [address] [place] [address] Social History Tobacco Use Types Packs/Day Years [...] 05/30/2024 10:30 AM EST Office Visit [facility] [address] [place] [address] Khloe Amezcua, OD [address] [place] [address] 06/09/2024 1:15 PM EST Office Visit [facility] [address] [place] [address] Waleska Baeza ANP [address] [place] [address] 06/15/2024 9:15 AM EDT Office Visit [address] [address] Montse Quintanilla MD [address] [place] [address] documented as of this encounter Visit Diagnoses Not on filedocumented in this encounter Additional Health Concerns Assessment Noted Time PHQ-9 Depression Total Score: 4 09/11/19 23 10:52 AM EDT documented as of this encounter Care Teams Zoogler Relationship Specialty Start Date End Date Waleska Baeza ANP [address] [place] [phone] PCP - General Family Medicine 08/23/19 documented as of this encounter
--- OUTSIDE RECORDS SUMMARY | 2024-05-26 13:48 | XMS_ITS | Encounter Summary ---
Author Organization [employer] Address 75 [facility] 7t [place] [address] Care Team Providers Care Tie Tamper Name Role Phone Waleska Baeza JUSTIN Primary Care Provider [phone] Reason for Visit * Reason Comments Jaw Pain Encounter Details Date Type Department Care Team ([facility] st Contact Info) Description 05/10/2024 1:40 PM EST Office Visit [facility] [address] [place] [phone] Jeannette Javier MD [address] [place], [place] [phone] Jaw pain (Primary Dx) Social History Tobacco Use Types [...] Sign Reading Time Taken Comments Blood Pressure 139/79 05/10/2024 1:49 PM EST Pulse 69 05/10/2024 1:49 PM EST Temperature 36.6 ??C (97.9 ??F) 05/10/2024 1:49 PM ES T Respiratory Rate 16 05/10/2024 1:49 PM EST Oxygen Saturation 99% 05/10/2024 1:49 PM EST Inhaled Oxygen Concentration - - Weight 80.3 kg (177 lb) 05/10/2024 1:49 PM EST Height - - Body Mass Index 24.69 01/08/2024 1:50 PM EDT documented in this encounter Progress Notes * Jeannette Javier MD - 05/10/2024 1:40 PM EST Subjective Patient ID: Shaggy Saucedo is a 68 y.o. male with past medical history cirrhosis, inactive Tb, opoid dependence, tobacco dependence and esophagitis who presents to walk in clinic for right sided jaw pain. Mr. Concepcion reports 5 days of a discomfort with chewing just below the angle of the mandible. He is edentulous. He denies eating anything that may have gotten stuck. No pain with swallowing, only withchewing. Denies fevers. + tobacco, no current EtOH. No weight changes. Review of Systems Constitutional: Negative for fever and unexpected weight change. HENT: Negative for congestion, ear pain, postnasal drip, rhinorrhea, sinus pain and sore throat. Objective Visit Vitals BP 139/79 (BP Location: Right arm, Patient Position: Sitting, BP Cuff Size: Adult) Pulse 69 Temp 97.9 ??F (36.6 ??C) (Temporal) Resp 16 Body mass index is 24.69 kg/m??. Physical Exam HENT: Head: Comments: No anterior or posterior cervical lymphadenopathy. No mastoid tenderness. No jaw clickingor instability. Right Ear: Tympanic membrane, ear canal and external ear normal. Left Ear: Tympanic membrane, ear canal and external ear normal. Mouth/Throat: Mouth: Mucous membranes are dry. No lacerations, oral lesions or angioedema. Dentition: No gingival swelling or gum lesions. Tongue: No lesions. Pharynx: No pharyngeal swelling, posterior oropharyngeal erythema, uvula swelling or postnasal drip. Tonsils: No tonsillar exudate. 1+ on the right. 1+ on the left. Comments: Edentulous, normal tonsils without visible stones. Problem List Items Addressed This Visit Jaw pain - Primary 5 days of jaw discomfort with chewing [...] symptoms worsen. He agrees with the plan. Relevant Medications amoxicillin-clavulanate (Augmentin) 875-125 MG tablet documented in this encounter Miscellaneous Notes * Assessment & Plan Note - Jeannette Javier MD - 05/10/2024 2:05 PM EST Associated Problem(s): Jaw pain 5 days of jaw discomfort with chewing [...] symptoms worsen. He agrees with the plan. documented in this encounter Plan of Treatment Upcoming Encounters Date Type Department Care Team (Late st Contact Info) Description 05/30/2024 10:30 AM EST Office Visit [facility] [address] [place] [address] Khloe Amezcua, OD [address] [place] [address] 06/09/2024 1:15 PM EST Office Visit [facility] [address] [place] [address] Waleska Baeza ANP [address] [place] [address] 06/15/2024 9:15 AM EDT Office Visit [facility] [address] [place] [address] Montse Quintanilla MD [address] [place] [address] documented as of this encounter Visit Diagnoses Diagnosis Jaw pain- Primary documented in this encounter Additional Health Concerns Assessment Noted Time PHQ-9 Depression Total Score: 3 04/21/19 25 1:02 PM EST documented as of this encounter Care Teams Tie Tamper Relationship Specialty Start Date End Date Waleska Baeza ANP [address] [place] [address] PCP - General Family Medicine 08/23/19 documented as of this encounter
--- OUTSIDE RECORDS SUMMARY | 2024-05-26 13:48 | XMS_ITS | Encounter Summary ---
Author Organization [employer] Address 75 [facility] 7t [place] [address] Care Team Providers Care Installation Helper Name Role Phone Waleska Baeza JUSTIN Primary Care Provider Reason for Visit * Reason Comments RC Recovery Supports Encounter Details Date Type Department Care Team (Late st Contact Info) Description 04/26/2024 Patient Outreach [facility] [address] [place] [address] Fazal Chang Recovery Supports Social History Tobacco [...] encounter Progress Notes * Fazal Chang - 04/26/2024 2:55 PM EST I met with Shaggy today. Setting: in person at [facility] Recovery Wellness Goals worked on: Social Stability Action taken/next steps: Offered person centered recovery support and Attended alcohol and drug free activity Additional comments: Today, the participant Shaggy Concepcion was at the center and brought some documents for me to make copies. Fazal Chang documented in this encounter Plan of Treatment Upcoming Encounters Date Type Department Care Team (Late st Contact Info) Description 05/30/2024 10:30 AM EST Office Visit [facility] [address] [place] [address] Khloe Amezcua, OD [address] [place] [address] 06/09/2024 1:15 PM EST Office Visit [facility] [address] [place] [address] Waleska Baeza ANP [address] [place] [address] 06/15/2024 9:15 AM EDT Office Visit [facility] [address] [place] [address] Montse Quintanilla MD [address] [place] [address] documented as of this encounter Visit Diagnoses Not on filedocumented in this encounter Additional Health Concerns Assessment Noted Time PHQ-9 Depression Total Score: 3 04/21/19 25 1:02 PM EST documented as of this encounter Care Teams Installation Helper Relationship Specialty Start Date End Date Waleska Baeza ANP [address] [place] [address] PCP - General Family Medicine 08/23/19 documented as of this encounter
== END 2024-05-26 14:24 | disposition home or self-care (01) ==
PROVIDERS: PCP Nurse Practitioner Primary Care; Visit Provider Internal Medicine Gastroenterology
DX: K59.09 Other constipation (principal); Z86.0100 Personal history of colon polyps, unspecified; K74.60 Unspecified cirrhosis of liver; R68.81 Early satiety; R10.9 Unspecified abdominal pain
CPT/HCPCS: 99214

== ENCOUNTER → 2024-05-26 12:53 | Outpatient (BNVA) | payer OTHER, SELFPAY | PROVIDERS: PCP Nurse Practitioner Primary Care; Visit Provider Internal Medicine Gastroenterology | DX: K59.09 Other constipation (principal); K74.60 Unspecified cirrhosis of liver; R10.9 Unspecified abdominal pain; R68.81 Early satiety; Z86.0101 Personal history of adenomatous and serrated colon polyps | CPT/HCPCS: 99212 ==

== ENCOUNTER 2024-07-09 10:24 | Emergency (ER) | payer OTHER, SELFPAY ==
--- NOTE | 2024-07-09 | ECG_ITS ---
Test Reason : CHEST PIAN Blood Pressure : */* mmHG Vent. Rate : 76 BPM Atrial Rate : 76 BPM P-R Int : 120 ms QRS Dur : 80 ms QT Int : 380 ms P-R-T Axes : 28 -21 21 degrees QTcB Int : 427 ms Sinus rhythm with Premature atrial complexes Otherwise normal ECG When compared with ECG of 24-May-2024 13:03, Premature atrial complexes are now Present Referred By: Generic ED Physician Electronically Signed By: HAIR DURBIN
--- NOTE | ~2024-07-09 | XR_ITS ---
CLINICAL HISTORY: sob 1 view chest x-ray Comparison: None Findings: Minimal left basilar opacities. No consolidation. Normal size heart. No acute fracture. IMPRESSION: Minimal left basilar opacities likely secondary to atelectasis. Mild infiltrates not excluded. This document has been electronically signed by: Bianca Restrepo MD on 07/09/2024 12:57:41
[2024-07-09 10:38] VITALS: BP 132/82; PULSE 79; RESP 18; TEMP 36.3; O2SAT 99; BMI 26.6
[2024-07-09 11:17] LABS: Basophils Absolute Auto 0.1 X10*3/uL (0.0-0.2); Basophils Percent Auto 1.8 % (0-2); Eosinophils Absolute Auto 0.1 X10*3/uL (0.0-0.4); Eosinophils Percent Auto 2.6 % (0-4); Hematocrit 41.5 % (42.0-52.0); Hemoglobin 14.6 g/dl (14.0-18.0); Imm Gran Abs Auto 0.02 X10*3/uL (0.00-0.03); Imm Gran Pct Auto 0.4 % (0.0-0.4); Lymphocytes Absolute Auto 1.9 X10*3/uL (1.2-4.9); MANUAL DIFF FLAG SCAN; Mean Corpuscular HGB Conc 35.2 g/dl (31.0-36.0); Mean Corpuscular Hemoglobin 30.7 pg (27.0-33.0); Mean Corpuscular Volume 87.2 fL (80.0-98.0); Mean Platelet Volume 11.3 fL (9.4-12.4); Monocytes Absolute Auto 0.4 X10*3/uL (0.1-1.2); Monocytes Percent Auto 8.1 % (2-11); Neutrophils Absolute Auto 2.5 x10*3/uL (2.0-8.3); Neutrophils Percent Auto 49.1 % (45-73); PLT CLUMP 1; Red Blood Count 4.76 X10*6/uL (4.60-5.80); Red Cell Distribution Width 12.5 % (11.0-16.0); SCAN SMEAR FLAG 1
[2024-07-09 11:24] LABS: Anion Gap 13 (12-20); Blood Urea Nitrogen 12 mg/dL (9-16); Calcium 9.2 mg/dL (8.4-10.2); Carbon Dioxide 23 mmol/L (22-29); Chloride 108 mmol/L (96-108); Creatinine Clr Calc Pharmacy 75.1; Estimated Glomerular Filt Rate > 60; Glucose Random 97 mg/dL (60-115); Potassium 4.3 mmol/L (3.3-5.1); Sodium 140 mmol/L (135-145)
[2024-07-09 11:29] LABS: Platelet Count 177 X10*3/uL (160-400); White Blood Count 5.1 X10*3/uL (4.8-10.8)
--- OUTSIDE RECORDS SUMMARY | 2024-07-09 11:29 | XMS_ITS | Encounter Summary ---
Author Organization [employer] Address [address] [facility] [address] [place] [address] Care Team Providers Care Billing Spec Name Role Phone Waleska Baeza JUSTIN Primary Care Provider [phone] Reason for Visit * Reason Onset Date Comments OBAT Communication 07/04/2024 Encounter Details Date Type Department Care Team ([facility] st Contact Info) Description 07/04/2024 Telephone [facility] [address] [place] [address] 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 RN [address] [place] [address] OBAT Communication Social History Tobacco Use Types [...] Telephone Encounter - 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 RN - 07/04/2024 11:11 AM EDT Pt called requesting change in OBAT appointment from 07/13/24 to 07/11/24 so he can go to his daughter's to celebrate his birthday. Also reports he has a ticket to [place] 07/19/24 and requests if he is not back by his August OBAT appointment for his friend Laura to pickle cutter Rx and mail to him as we have done inthe past. Agrees to stay in contact with OBAT team regarding his travel plans and agrees to appointm ent 07/11/24 10 am. documented in this encounter Plan of Treatment Upcoming Encounters Date Type Department Care Team (Late st Contact Info) Description 07/11/2024 10:00 AM EDT Clinical Support [facility] [address] [place] [phone] 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 RN [address] [place] [address] 08/10/2024 11:00 AM EDT Office Visit [facility] [address] [place] [address] Montse Quintanilla MD [address] [place] [address] documented as of this encounter Goals Goal Patient Goal Type Associated Problems Recent Progress Patient-Stated? 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, RN documented as of this encounter Visit Diagnoses Not on filedocumented in this encounter Additional Health Concerns Assessment Noted Time PHQ-9 Depression Total Score: 3 04/21/19 25 1:02 PM EST documented as of this encounter Care Teams Billing Spec Relationship Specialty Start Date End Date Waleska Baeza ANP [address] [place] [address] PCP - General Family Medicine 08/23/19 documented as of this encounter
--- OUTSIDE RECORDS SUMMARY | 2024-07-09 11:29 | XMS_ITS | Encounter Summary ---
Author Organization [facility] Address [address] [facility] [address] [facility] [address] [place] [address] Care Team Providers Care Personal Lines Advisor Name Role Phone Waleska Baeza JUSTIN Primary Care Provider [phone] Reason for Visit * Reason Comments Abdominal Pain Encounter Details Date Type Department Care Team ([facility] st Contact Info) Description 07/09/2024 10:00 AM EDT Office Visit [facility] [address] [place] [address] [phone] Darian Mcgill MD [address] [place] [phone] Left-sided chest wall pain (Primary Dx) Social History Tobacco Use [...] is your housing situation today? I have santiagotrudi greenberg 05/04/[address] you [...] Sign Reading Time Taken Comments Blood Pressure 116/74 07/09/2024 9:47 AM EDT Pulse 78 07/09/2024 9:47 AM EDT Temperature 36.3 ??C (97.3 ??F) 07/09/2024 9:47 AM ED T Respiratory Rate 17 07/09/2024 9:47 AM EDT Oxygen Saturation 98% 07/09/2024 9:47 AM EDT Inhaled Oxygen Concentration - - Weight 80 kg (176 lb 6.4 oz) 07/09/2024 9:47 AM EDT Height - - Body Mass Index 24.6 06/10/2024 2:03 PM EST documented in this encounter Progress Notes * Darian Mcgill MD - 07/09/2024 10:00 AM EDT Subjective History was provided by the patient. Shaggy Saucedo is a 68 y.o. male who presents for evaluation of LUQ and lower chest wall pain for 3 days. Denies any injury, fall, or activity change. Denies any GI concerns. Denies N/V/D or constipation. Had normal BM yesterday. Pain is not reproducible with palpation or coughing, but noticeable with position change (especially with bending at the waist). Denies cough, congestion, rhinorrhea, or sore throat. Denies F/C. History of cirrhosis of liver and chronic hepatitis C (s/p treatment). Labs (05/2024) show TBili 1.7, AST/ALT 37/35, Alk Phos 78, and PLT 186. Also had Abdomen U/S (11/2023) showed normal appearing pancreas, increased echogenicity of liver without focal lesion or intrahepatic biliary duct dilatation. Elastoghraphy measurements indicate a minimal risk for clinically significant liver fibrosis. Objective Vitals: 07/09/24 0947 BP: 116/74 BP Location: Left arm Patient Position: Sitting BP Cuff Size: Adult Pulse: 78 Resp: 17 Temp: 97.3 ??F (36.3 ??C) TempSrc: Temporal SpO2: 98% Weight: 176 lb 6.4 oz (80 kg) Physical Exam Vitals reviewed. Constitutional: Appearance: Normal appearance. HENT: Head: Normocephalic and atraumatic. Right Ear: External ear normal. Left Ear: External ear normal. Nose: Nose normal. Mouth/Throat: Mouth: Mucous membranes are dry. Pharynx: Oropharynx is clear. Eyes: Extraocular Movements: Extraocular movements intact. Conjunctiva/sclera: Conjunctivae normal. Cardiovascular: Rate and Rhythm: Normal rate and regular rhythm. Heart sounds: Normal heart sounds. Pulmonary: Effort: Pulmonary effort is normal. No respiratory distress. Breath sounds: Normal breath sounds. No stridor. No wheezing, rhonchi or rales. Chest: Chest wall: Tenderness (Tenderness at left lower chest mid-costal cartilage area (9-10), but deep (no deformity or rib tenderness)) present. Abdominal: General: Abdomen is flat. There is no distension. Palpations: Abdomen is soft. Tenderness: There is no abdominal tenderness. There is no right CVA tenderness, left CVA tenderness, guarding or rebound. Musculoskeletal: Cervical back: Normal range of motion and neck supple. Skin: General: Skin is warm and dry. Neurological: Mental Status: He is alert and oriented to person, place, and time. Psychiatric: Mood and Affect: Mood normal. Behavior: Behavior normal. Thought Content: Thought content normal. Judgment: Judgment normal. Shaggy was seen today for abdominal pain. Diagnoses and all orders for this visit: Left-sided chest wall pain (Primary) Patient presents to [facility] with 3-day duration of left lower chest wall pain Denies any preceding trauma or fall Denies any associated respiratory or gastrointestinal symptoms Normal pulmonary exam with O2 sat 98% No clinical evidence of acute abdomen Pain is directly underneath the mid-costal cartilage area (9-10) of the left lower chest wall No deformity noted Recommended patient to present to ER for further evaluation by imaging Patient agrees with the plan and will present directly to [facility] documented in this encounter Plan of Treatment Upcoming Encounters Date Type Department Care Team (Late st Contact Info) Description 07/11/2024 10:00 AM EDT Clinical Support [address] [address] 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 RN [address] [place] [phone] 08/10/2024 11:00 AM EDT Office Visit [address] [address] Montse Quintanilla MD [address] [place] [phone] documented as of this encounter Goals Goal Patient Goal Type Associated Problems Recent Progress Patient-Stated? 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, RN documented as of this encounter Visit Diagnoses Diagnosis Left-sided chest wall pain- Primary Painful respiration documented in this encounter Additional Health Concerns Assessment Noted Time PHQ-9 Depression Total Score: 3 04/21/19 25 1:02 PM EST documented as of this encounter Care Teams Personal Lines Advisor Relationship Specialty Start Date End Date Waleska Baeza ANP [address] [place] [id number] PCP - General Family Medicine 08/23/19 documented as of this encounter
[2024-07-09 11:30] LABS: SLIDE REVIEW VERIFIED
--- OUTSIDE RECORDS SUMMARY | 2024-07-09 11:30 | XMS_ITS | Clinical Summary ---
Author Organization [facility] Address [address] [place] [address] [address] [place] [address] Care Team Providers Care Senior Quality Assurance Analyst Name Role Phone Jay Lawler Primary Care Provider [phone] Allergies Active Allergy Reactions Criticality Noted Date [...] every day a thin layer to FACE 021 Active Dimethicone (Aveeno Skin Relief) 1.3 % lotion apply topically to feet daily in AM 022 Active salicylic acid-lactic acid (Compound W) 17 % external solution 1-2 drops to affected area and cover with occlusive bandage for 12 hours daily 022 Active Bacitracin-Polymy briana B (SM Double Antibiotic) [id number] UNIT/GM ointmentIndicatio ns:Tinea pedis of both feet [...] terazosin (Hytrin) 5 MG capsule 023 Active Diclofenac Sodium 1 % gelIndications:Co stochondritis APPLY 2 GRAMS TOPICALLY TO AFFECTED AREA(S) THREE TIMES DAILY NEEDED (FOR DISCOMFORT en el CHEST) 100 g 1 023 Active ketoconazole (NIZOral) 2 % shampooIndication s:Seborrheic dermatitis APPLY TO DAMP SCALP, LATHER, LEAVE FOR 5 MINUTES THEN RINSE WITH WATER. USE 3-7 DAYS PER WEEK DIRECTED 120 mL 11 023 Active Bisacodyl EC 5 MG EC [...] 024 Active ergocalciferol (Vitamin D2) 1.25 MG (10821 UT) capsuleIndication s:Vitamin D deficiency TAKE 1 CAPSULE BY MOUTH EVERY MORNING (ONCE PER MONTH) 1 capsule 024 Active Petrolatum ointment apply topically to feet nightly after soaking 454 g 11 024 Active omeprazole (PriLOSEC) [address] capsule Take 1 capsule (20 mg) by mouth if needed each day (reflux, macedonian label). Do not crush or chew. 14 capsule 024 Active pravastatin (Pravachol) 20 MG tabletIndications :Mixed hyperlipidemia Take 1 tablet daily at bedtime 90 tablet 024 Active fluocinolone ([place]-Smoothe) 0.01 % external oilIndications:Se borrheic dermatitis APPLY TOPICALLY TO DAMP SCALP BEFORE BEDTIME. WRAP HEAD. WASH OUT IN THE MORNING. USE 3x PER WEEK to treat, USE EVERY 1 TO 2 WEEKS TO PREVENT. 118.28 mL 1 025 Active QUEtiapine (SEROquel) 50 MG tabletIndications :Depressive [...] at the same time. 14 patch 025 Active nicotine (Nicoderm CQ) 14 MG/24HR patch Place 1 patch on the skin 1 (one) time each day at the same time. 42 patch 025 Active nicotine polacrilex (Commit) 2 MG lozenge Dissolve 1 lozenge (2 mg) in the mouth if needed for smoking cessation. 100 lozenge 025 Active fluticasone (Flonase) 50 MCG/ACT nasal sprayIndications: Chronic dysfunction of right eustachian tube Administer 1-2 sprays into each nostril Once per day. Shake gently. Before first use, prime pump. After use, clean tip and replace cap. 16 g 2 025 2024 Active loratadine (Claritin) 10 MG tabletIndications :Ear congestion, right Take 1 tablet (10 mg) by mouth Once per day. 30 tablet 2 025 Active triamcinolone (Kenalog) 0.1 % creamIndications: Itching MIX triamcinolone WITH cerave AND APPLY TOPICALLY TO THE AFFECTED AREA(S) OF THE CHEST AND BACK TWICE DAILY DIRECTED 60 g 1 025 Active hydrocortisone 2.5 % cream APPLY TO THE AFFECTED AREA(S) TOPICALLY TWICE DAILY 30 g 1 025 Active Suboxone 8-2 MG SL filmIndications:O pioid type dependence, continuous (CMS/HCC) Place 1 Film under the tongue 3 times daily for 28 days. 84 Film 025 2024 Active triamcinolone (Kenalog) 0.1 % creamIndications: Itching MIX triamcinolone WITH cerave AND APPLY TOPICALLY TO THE AFFECTED AREA(S) OF THE CHEST AND BACK TWICE DAILY DIRECTED 60 g 1 024 2024 Discontinued loratadine (Claritin) 10 MG tabletIndications :Ear congestion, right Take 1 tablet (10 mg) by mouth Once per day for 7 days. 7 tablet 025 2024 Discontinued(R eorder (will not trigger notification to Pharmacy)) hydrocortisone 2.5 % cream APPLY TO THE AFFECTED AREA(S) TOPICALLY TWICE DAILY 30 g 1 025 2024 Discontinued Suboxone 8-2 MG SL filmIndications:O pioid type dependence, continuous (CMS/HCC) Place 1 Film under the tongue 3 times daily for 28 days. 84 Film 025 2024 Discontinued(R eorder (will not trigger notification to Pharmacy)) Active Problems Problem Noted Date Diagnosed Date Right ear pain 06/10/2024 Chronic dysfunction of right eustachian tube 10/2024 Assessment & Plan (06/10/2024 3:24 PM EST): Reviewed reassuring ear exam, suspect eustacian tube dysfunction, denies vertigo, hearing loss, ear pain or worsening symptoms Has upcoming visit with ENT, neg head CT Trial topical nasal steroid given mild pnd Temporomandibular joint effusion 06/01/2024 Assessment & Plan (06/01/2024 3:06 PM EST): Clear fluid in mid right ear. No sign of infection. -prescribed oratadine (Claritin) 10 MG once daily x7 days Ear congestion, right 06/01/2024 Assessment & Plan (06/01/2024 3:06 PM EST): Clear fluid in mid right ear. No sign of infection. -prescribed oratadine (Claritin) 10 MG once daily x7 days Acute nonintractable headache 05/21/2024 Assessment & Plan (05/21/2024 10:44 AM EST): Pt here with c/o new onset of bitemporal headache described when severe 09/13 right now approximately 310 . Thinks he might have had a [...] precautions. Tobacco dependence 04/14/2023 Assessment & Plan (06/15/2024 10:09 AM EDT): - he is currently smoking 3 cigs per day - Tried nicotine replacement, which was ineffective - continue working on smoking cessation. 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 Provided education around integrated medicine and the options of follow up BE's as needed. Provided contact information should questions or concerns arise. Plan: Shaggy will continue to engage in effective coping mechanisms that has worked for him. He will implement coping skills discussed in session and will keep appts with therapist at [facility]. Patient with lack of motivation, low mood, insomnia, little energy, He denies SI, HI, or self-harm. Living alone, isolating no informal supports. Patient will benefit from continuation of MH services with [facility]. At this time Sahggy Saucedo meets criteria for Visit Diagnoses: Problem List Items Addressed This Visit Other Depressive disorder Patient ready to address current needs already engage in servies Strengths include Shaggy is able to advocate for himself. PLAN: 1. Follow up with [facility]: Not recommended for follow-up 2. Patient goal is to improve mood and manage sxs 3. Behavioral Recommendations a. Continuation of services with [facility] b. Using coping Mechanisms Opioid dependence 07/02/2016 Assessment & Plan (06/14/2024 4:07 PM EDT): -maintenance stage -Last positive Utox Apr 2019, positive opi -Pt is participating in a group session at [facility] -overdose risk: average-intermediate (Hx seizure disorder, anxiety / depression, decreased tolerance) -reviewed harm reduction and OD prevention -continue current Tx plan and recovery support Assessment & Plan (04/20/2024 5:49 AM EST): [...] organization. Date Type Department Care Team Description 07/09/2024 10:00 AM EDT Office Visit [facility] [address] [phone] Darian Mcgill MD Left-sided chest wall pain (Primary Dx) 07/06/2024 Refill [facility] [address] [place] [phone] 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, RN Opioid type dependence, continuous (CMS/HCC) 07/04/2024 Telephone [facility] [address] [place] [phone] 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, RN OBAT Communication 06/27/2024 Refill [facility] [address] [address] Jay Lawler ANP 06/24/2024 Patient Outreach [facility] [address] [place] [phone] Major Oneal Recovery Supports 06/22/2024 Telephone [facility] [address] [place] [phone] Jay Lawler ANP Durable Medical Equipment (underpads) 06/19/2024 Refill [facility] [address] [place] [address] Jay Lawler ANP Itching 06/15/2024 9:15 AM EDT Office Visit [address] [address] Montse Quintanilla MD Uncomplicated opioid dependence ([facility]) (Primary Dx); Ear congestion, right; Tobacco dependence 06/15/2024 Travel 06/10/2024 2:00 PM EST Office Visit [facility] [address] [place] [phone] Allison Sevilla NP Right ear pain (Primary Dx); Chronic dysfunction of right eustachian tube 06/09/2024 1:15 PM EST Office Visit [address] [address] Jay Lawler ANP Jaw pain (Primary Dx); Nasal congestion; Ear congestion, right; Urinary incontinence, unspecified type 06/09/2024 Travel 06/08/[address] [address] 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, GINNA Opioid type dependence, continuous (CMS/HCC) 06/07/2024 Patient Outreach [address] [address] Mansoor Calixto Recovery Supports 06/06/[address] [address] Jay Lawler ANP [employer] (Underpad, incont procare 21x36'') 06/02/2024 Patient Outreach [address] [address] Nav Carcamo Recovery Supports 06/01/2024 2:20 PM EST Office Visit [facility] [address] [place] [phone] Jeannette Javier MD Temporomandibular joint effusion (Primary Dx); Ear congestion, right 06/01/2024 Refill [facility] [address] [place] [phone] Jay Lawler ANP 06/01/2024 Telephone [facility] [address] [place], [place] [phone] Jay Lawler ANP Medication Question 05/31/2024 Patient Outreach [address] [phone] Nav Carcamo Recovery Supports 05/30/2024 10:30 AM EST Office Visit [facility] [address] [place] [phone] Seven, Khloe, OD Combined forms of age-related cataract of both eyes (Primary Dx); Suspicious optic nerve cupping of both eyes; Dry eyes; Dermatochalasis of both upper eyelids; Presbyopia of both eyes 05/30/2024 9:30 AM EST Office Visit [facility] [address] [place] [phone] Gian Cohen, [place] 05/30/2024 9:00 AM EST Office Visit [facility] [address] [place] [address] Cyrus Castro MD Neck pain on right side (Primary Dx); Right ear pain; Viral URI 05/30/2024 Travel 05/27/2024 Patient Outreach [address] [address] Nav Carcamo Recovery Supports 05/26/[address] [address] 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, RN OBAT Communication 05/26/2024 Patient Outreach [address] [phone] Fazal Chang Recovery Supports 05/25/2024 Patient Outreach [address] [phone] Nav Carcamo Recovery Supports 05/24/2024 10:40 AM EST Office Visit [facility] [address] [phone] Cyrus Castro MD Acute intractable headache, unspecified headache type (Primary Dx); Neck pain on right side 05/24/2024 Orders Only GENERIC EXTERNAL DATA DEPARTMENT Provider, Generic External Data 05/24/2024 Patient Outreach [address] [address] Nav Carcamo 05/24/2024 Telephone [facility] [place] [address] Jay Lawler ANP Medication Question 05/21/2024 10:00 AM EST [facility] [place] [address] Alberto Tello MD Acute nonintractable headache, unspecified headache type (Primary Dx) 05/20/2024 [address] Outreach [address] [place] [address] Nav Carcamo Recovery Supports 05/19/2024 Patient Outreach [address] [address] Carcamo, [facility] Recovery Supports 05/18/2024 9:15 AM EST Clinical Support [address] [address] 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 RN Uncomplicated opioid dependence (CMS/HCC) (Primary Dx) 05/18/2024 Patient Outreach [address] [place] [address] Nav Carcamo Recovery Supports 05/18/2024 Travel 05/17/2024 1:15 PM EST Office Visit [facility] [place] [address] Jay Lawler ANP Dyslipidemia (Primary Dx); Cirrhosis of liver without ascites, unspecified hepatic cirrhosis type (CMS/HCC); Portal hypertensive gastropathy (CMS/HCC) (CMS/HCC); Jaw pain; Depressive disorder; Insomnia, unspecified type 05/17/2024 Travel 05/11/[address] [address] 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, RN Opioid type dependence, continuous (CMS/HCC) 05/10/2024 1:40 PM EST [facility] [place] [address] Jeannette Javier MD Jaw pain (Primary Dx) 05/10/2024 Patient Outreach [address] [address] Nav Carcamo Recovery Supports 05/06/2024 Patient Outreach [facility] [address] [place] [address] Nav Carcamo Recovery Supports 05/04/2024 Patient Outreach [facility] [address] [place] [address] Jay Lawler ANP Pre-visit Planning (SDOH Screening negative and Tobacco screening negative) 05/02/2024 Patient Outreach [facility] [address] [place] [address] Nav Carcamo RC Recovery Supports 04/28/2024 Patient Outreach [facility] [address] [place] [address] Nav Carcamo Recovery Supports 04/26/2024 Patient Outreach [address] [address] Fazal Chang [facility] Recovery Supports 04/21/2024 Patient Outreach [address] [address] Akbar Mandujano RC Recovery Supports 04/20/2024 10:45 AM EST Office Visit [address] [address] Montse Quintanilla MD Uncomplicated opioid dependence ([facility]) (Primary Dx); Tobacco dependence 04/20/2024 Travel 04/18/2024 Patient Outreach [facility] [address] [place] [address] Nav Carcamo Recovery Supports 04/17/2024 Refill [facility] [address] [place] [address] Jay Lawler ANP Seborrheic dermatitis 04/15/2024 Patient Outreach [address] [address] Major Oneal RC Recovery Supports 04/15/2024 Patient Outreach [facility] [address] [place] [address] Nav Carcamo [facility] Recovery Supports 04/14/2024 Patient Outreach [facility] [address] [place] [address] Nav Carcamo Recovery Supports 04/13/2024 Refill [facility] [address] [place] [address] 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, RN Opioid type dependence, continuous ([facility]) 04/11/2024 Patient Outreach [facility] [address] [place] [address] Akbar Mandujano Recovery Supports from Last 3 Months Immunizations Name Administration [...] 6.4 oz) 07/09/2024 9:47 AM EDT Height 180.3 cm (5' 11 ) 06/10/2024 2:03 PM EST Body Mass Index 24.6 06/10/2024 2:03 PM EST Plan of Treatment Upcoming Encounters Date Type Department Care Team (Late st Contact Info) Description 07/11/2024 10:00 AM EDT Clinical Support [facility] [address] [place] [phone] 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, RN [address] [place] [phone] 08/10/2024 11:00 AM EDT Office Visit [facility] [address] [place] [address] Montse Quintanilla MD [address] [place] [address] Health Maintenance Due Date Last Done Comments [...] Oral Exam 12/15/2016 06/13/2016, 06/19/2009 COVID-19 Vaccine ( season) 2023 Depression Screening 04/21/2025 04/21/2024, 04/21/19 25 SDOH Screening 05/04/2025 05/04/2024 Alcohol/Substance Use Screening 05/17/2025 05/17/2024 Tobacco Screening 06/15/2025 06/15/2024 Dental X-Ray: Full Mouth 08/20/2025 023, 06/13/2016, [...] on patient's age to complete this topic Goals Goal Patient Goal Type Associated Problems Recent Progress Patient-Stated? 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 Procedure Name Priority Date/Time Associated Diagnosis Comments POCT GISSEL-14 URINE DRUG SCREEN Routine 06/15/2024 9:12 AM EDT Uncomplicated opioid dependence ([facility]) POCT RAPID COVID ANTIGEN Routine 06/09/2024 1:34 PM EST Nasal congestion OCT, OPTIC NERVE - OU - BOTH EYES Routine 05/30/2024 11:45 AM EST Suspicious optic nerve cupping of both eyes CASE PRESENTATION, DETAILED AND EXTENSIVE TREATMENT PLANNING Routine 05/30/2024 9:30 AM EST LIMITED ORAL EVALUATION - PROBLEM FOCUSED Routine 05/30/2024 9:30 AM EST POCT INFLUENZA B (ID NOW RAPID MOLECULAR) Routine 05/30/2024 9:03 AM EST Viral URI POCT INFLUENZA A (ID NOW RAPID MOLECULAR) Routine 05/30/2024 9:03 AM EST Viral URI POCT RAPID COVID ANTIGEN Routine 05/30/2024 9:03 AM EST Viral URI SARS COV2/INFLUENZA A/B AND RSV RNA QL [...] PANEL, STANDARD Routine 04/05/2024 8:02 AM EST PANORAMIC RADIOGRAPHIC IMAGE Routine 08/19/2022 1:00 PM EDT HM COLONOSCOPY Routine 12/16/2019 5:19 PM EDT PERIODIC ORAL EVALUATION - ESTABLISHED PATIENT Routine 06/13/2016 12:00 AM EST PROPHYLAXIS - ADULT Routine 09/21/2013 1 2:00 AM EDT INTRAORAL - COMPLETE SERIES OF RADIOGRAPHIC IMAGES Routine 05/28/2009 12:00 AM EST from Last 3 Months or Most Recently Relevant to Health Maintenance Results * POCT GISSEL-14 Urine Drug Screen (06/15/2024 9:12 AM EDT) Only the most recent of3 resultswithin the time period is included. THC Negative Cocaine Screen, Urine Negative Opiate [...] obtained by clean catch procedure / Unknown 06/15/2024 9:12 AM EDT Montse Quintanilla MD POINT OF CARE TEST ENTER/EDIT OR DERABLES Final Result * POCT Rapid Covid-19 BinaxNOW (06/09/2024 1:34 PM EST) Only the most recent of3 resultswithin the time period is included. Rapid COVID Ag Negative QC Media Lot # [id number] Lot# Expiration Date [id number] Swab 06/09/2024 1:34 PM EST Jay ANDERSON POINT OF CARE TEST ENTER/EDIT OR DERABLES Final Result * OCT, Optic Nerve - OU - Both Eyes (05/30/2024 11:45 AM EST) Narrative Khloe Amezcua, OD - 05/30/2024 11:45 AM EST Right Eye Images reviewed and comparison made to baseline. To assess optic nerve function and for use in future follow-up. Reliability: good and adequate. Left Eye Images reviewed and comparison made to baseline. To assess optic nerve function and for use in future follow-up. Reliability: good and adequate. Notes OCT OPTIC NERVE INTERPRETATION Optical Coherence Tomography Interpretation Report Test Details: Measurements: OD ??OS C/D Horizontal 0.82 ??0.81 C/D Vertical 0.76 ??0.74 Disc area 2.47 mm 2 ??2.57 mm 2 RNFL Average 103 microns ??107 microns ?? Test findings: OD: Normal RNFL thickness 360 OS: Normal RNFL thickness 360 Impression and Plan: 5 micron decrease in average RNFL right eye (OD), 2 micron decrease in average RNFL left eye (OS). No suspicion for glaucoma at this time. Will monitor at his next exam. Khloe Amezcua OD OPHTH TOMOGRAPHY Final Result * Influenza B (ID NOW Rapid Molecular) (05/30/2024 9:03 AM EST) Only the most recent of2 resultswithin the time period is included. Influenza B Negative Negative, Indeterminate [facility] Swab 05/30/2024 9:03 AM EST us Cyrus Castro MD POINT OF CARE TEST ENTER/EDIT OR DERABLES Final Result Performing Organization Address [facility] Co de Phone Number [facility] [address] [place] [address] [phone] * Influenza A (ID NOW Rapid Molecular) (05/30/2024 9:03 AM EST) Only the most recent of2 resultswithin the time period is included. Influenza A Negative Negative, Indeterminate [facility] Swab 05/30/2024 9:03 AM EST us Cyrus Castro MD POINT OF CARE TEST ENTER/EDIT OR DERABLES Final Result Performing Organization Address [facility] Co de Phone Number [facility] [address] [place] [address] [phone] * SARS-CoV-2 RNA, Influenza A/B, and RSV RNA, Ql NAAT (05/24/2024 9:43 PM EST) Influenza A PCR NEGATIVE Negative [facility] Influenza B PCR NEGATIVE Negative [facility] Resp Syncy Virus RNA Qual PCR NEGATIVE Negative [facility] SARS COV2 PCR NEGATIVE Negative [facility] Comment:All test results mus t [...] use by authorized laboratories.Testing performed on the [employer] GeneXpert utilizingreal-time RT-PCR.All SARS CoV2 and positive influenza A/B results arereported to [facility]. 05/24/2024 9:43 PM EST 05/24/2024 9:45 PM EST us Generic External Data Provider LAB MICROBIOLOGY - GENERAL ORDERABLES Final Result [facility] [address] [place] [address] [phone] * CT Head w/o Contrast (05/24/2024 9:28 PM EST) Anatomical Region Laterality Modality Head, Neck Computed Tomogra phy 05/24/2024 9:28 PM EST Narrative 05/24/2024 9:29 PM EST ? [facility] ?[address] ?[place] [address] ? CT Scan Report ? Signed ? Patient: Jamey Saucedo,Shaggy M ?MR#: ?? [id number] ? : 1955 ?Acct:[id number] ? Age/Sex: 68 / M ?ADM Date: 02/18/25 ? Loc: HO.ED ? Attending Dr: ? Ordering Physician: Danuta Gillis MD ?? Date of Service: 05/24/24 ?? Procedure(s): CT head/brain wo IV con ?? Accession Number(s): [id number] ? cc: Danuta Gillis MD; JAY LAWLER NP ? Report Number: ?? [id number]: Total DLP = ?0.00 mGy-cm ? CLINICAL [...] on ?? 05/24/2024 21:28:26 ? Dictated By: ?Ghanshyma Cooper MD ? Signed By: ?<Electronically signed by Ghanshyam Cooper MD in OV> ? 05/24/249 ? DD/ 27 ? TD/TT: 05/24/242127 ? Pharm Tech: ? Procedure Note Ronny, Francisco - 05/24/[address] [place] [address] [address] Scan Report Signed Patient: Shaggy German [facility]#: [id number] : 6Acct:[id number] Age/Sex: 68 / MADM Date: 05/24/24 Loc: HO.ED Attending Dr: Ordering Physician: Danuta Gillis MD Date of Service: 05/24/24 Procedure(s): CT head/brain wo IV con Accession Number(s): [id number] cc: Danuta Gillis MD; JAY LAWLER NP Report Number: [id number]: Total DLP = 0.00 mGy-cm CLINICAL HISTORY: [...] in OV> 05/24/242128 DD/ 27 TD/TT: 05/24/242127 Pharm Tech: us [facility] External Provider IMG CT PROCEDURES Edited Result - Final * CT Sinus Facial Bones w/o Contrast (05/24/2024 9:16 PM EST) Anatomical Region Laterality Modality Computed Tomogra phy 05/24/2024 9:16 PM EST Narrative 05/24/2024 9:18 PM EST ? [facility] ?[address] ?[place] [address] ? CT Scan Report ? Signed ? Patient: ConcepcionShaggy Perez Bal ?MR#: ?? [id number] ? : 1955 ?Acct:[id number] ? Age/Sex: 68 / M ?ADM Date: 05/24/24 ? Loc: HO.ED ? Attending Dr: ? Ordering Physician: Danuta Gillis MD ?? Date of Service: 05/24/24 ?? Procedure(s): CT facial bones wo IV con ?? Accession Number(s): [id number] ? cc: Danuta Gillis MD; JAY LAWLER NP ? Report Number: ?? [id number]: Total DLP = 1194.00 mGy-cm ? CLINICAL [...] ? DD/ 15 ? TD/TT: 05/24/242115 ? Pharm Tech: ? Procedure Note Donotuseinterpreter, Image - 05/24/[address] [address] [address] Scan Report Signed Patient: Shaggy German MMR#: [id number] : 6Acct:[id number] Age/Sex: 68 / MADM Date: 05/24/24 Loc: HO.ED Attending Dr: Ordering Physician: Danuta Gillis MD Date of Service: 05/24/24 Procedure(s): CT facial bones wo IV con Accession Number(s): [id number] cc: Danuta Gillis MD; JAY LAWLER NP Report Number: [id number]: Total DLP = 1194.00 mGy-cm CLINICAL HISTORY: [...] in OV> 05/24/242116 DD/ 15 TD/TT: 05/24/242115 Pharm Tech: [facility] External Provider IMG CT PROCEDURES Edited Result - Final * High Sensitivity Troponin I (05/24/2024 5:44 PM EST) Only the most recent of2 resultswithin the time period is included. TROPONIN I HIGH SENSITIVITY <2.7 <3.5 - 35.0 ng/L [facility] Comment:The [place] high sens itivity Troponin-I results should beused in conjunction with other diagnostic information suchas ECG, clinical observations and information, and patientsymptoms to aid in the diagnosis of MO. 05/24/2024 5:44 PM EST 05/24/2024 5:47 PM EST us Generic External Data Provider LAB BLOOD ORDERAB LES Final Result [facility] [address] [place] [address] [phone] * (ABNORMAL) CBC auto differential (05/24/2024 2:55 PM EST) White Blood Count 4.3(L) 4.8 - 10.8 X10*3/uL [facility] Red Blood Count 4.95 4.60 - 5.80 X10*6/uL [facility] Hemoglobin 15.0 14.0 - 18.0 g/dl [facility] Hematocrit 44.4 42.0 - 52.0 % [facility] Mean Corpuscular Volume 89.7 80.0 - 98.0 fL [facility] Mean Corpuscular Hemoglobin 30.3 27.0 - 33.0 pg [facility] Mean Corpuscular HGB Conc 33.8 31.0 - 36.0 g/dl [facility] Red Cell Distribution Width 12.6 11.0 - 16.0 % [facility] Platelet Count 186 160 - 400 X10*3/uL [facility] Mean Platelet Volume 10.5 9.4 - 12.4 fL [facility] Neutrophils Percent Auto 54.4 45 - 73 % [facility] Imm Gran Pct Auto 0.2 0.0 - 0.4 % [facility] Lymphocytes Percent Auto 34.7 20 - 40 % [facility] Monocytes Percent Auto 7.0 2 - 11 % [facility] Eosinophils Percent Auto 2.3 0 - 4 % [facility] Basophils Percent Auto 1.4 0 - 2 % [facility] NRBC Pct Auto 0.0 0.0 - 0.2 /100WBC [facility] Neutrophils Absolute Auto 2.3 2.0 - 8.3 x10*3/uL [facility] Imm Gran Abs Auto 0.01 0.00 - 0.03 X10*3/uL [facility] Lymphocytes Absolute Auto 1.5 1.2 - 4.9 X10*3/uL [facility] Monocytes Absolute Auto 0.3 0.1 - 1.2 X10*3/uL [facility] Eosinophils Absolute Auto 0.1 0.0 - 0.4 X10*3/uL [facility] Basophils Absolute Auto 0.1 0.0 - 0.2 X10*3/uL [facility] NRBC Abs Auto 0.000 0.0 - 0.012 X10*3/uL [facility] 05/24/2024 2:55 PM EST 05/24/2024 2:59 PM EST Generic External Data Provider LAB BLOOD ORDERAB LES Final Result Performing Organization Address [facility] Co de Phone Number [facility] [address] [place] [phone] * Sed Rate by Modified Mishaergren (05/24/2024 2:55 PM EST) Erythrocyte Sedimentation Rate 4 0 - 15 MM/HR [facility] Comment:Patients with polycy themia and many hemoglobin abnormalitiesmay have depressed sed rates whereas patients with anemiamay have elevated sed rates. 05/24/2024 2:55 PM EST 05/24/2024 8:16 PM EST Generic External Data Provider LAB BLOOD ORDERAB LES Final Result Performing Organization Address [facility] Co de Phone Number [facility] [address] [place] [phone] * C-reactive Protein (05/24/2024 2:55 PM EST) C Reactive Protein 0.15 < or = 0.50 mg/dL [facility] 05/24/2024 2:55 PM EST 05/24/2024 2:59 PM EST us Generic External Data Provider LAB BLOOD ORDERAB LES Final Result Performing Organization Address City/[facility]/ZIP Co de Phone Number [facility] [address] [place] [phone] * Magnesium (05/24/2024 2:55 PM EST) [facility] Magnesium 2.1 1.6 - 2.6 mg/dL [facility] 05/24/2024 2:55 PM EST 05/24/2024 2:59 PM EST us Generic External Data Provider LAB BLOOD ORDERAB LES Final Result Performing Organization Address [facility] Co de Phone Number [facility] [address] [place] [phone] * (ABNORMAL) Hepatic Function Panel (05/24/2024 2:55 PM EST) [facility] Bilirubin, Total 1.7(H) 0.0 - 1.0 mg/dL [facility] Bilirubin, Direct 0.3 0.0 - 0.5 mg/dL [facility] Aspartate Amino Transferase 37 5 - 37 U/L [facility] Alanine Aminotransferase 35 0 - 40 U/L [facility] Total Protein 8.0 6.5 - 8.0 g/dL [facility] Albumin Level 4.4 3.5 - 5.0 g/dL [facility] Alkaline Phosphatase 78 39 - 117 U/L [facility] 05/24/2024 2:55 PM EST 05/24/2024 2:59 PM EST Generic External Data Provider LAB BLOOD ORDERAB LES Final Result Performing Organization Address [facility] Co de Phone Number [facility] [address] [place] [phone] * (ABNORMAL) Basic Metabolic Panel (05/24/2024 2:55 PM EST) [facility] Sodium 139 135 - 145 mmol/L [facility] Potassium 4.3 3.3 - 5.1 mmol/L [facility] Chloride 107 96 - 108 mmol/L [facility] Carbon Dioxide 25 22 - 29 mmol/L [facility] Anion Gap 11(L) 12 - 20 [facility] Urea Nitrogen (BUN) 10 9 - 16 mg/dL [facility] Creatinine, Serum 0.75 0.5 - 1.4 mg/dL [facility] Creatinine Clr Calc Pharmacy 96.2 [facility] Comment:eGFR (calculated fro m the MDRD study equation) and eCrCl(calculated from the Cockcroft-Gault equation) are based ondifferent parameters and may not yield comparable results.If eCrCl result is absurd, please check patient'sheight/weight. Estimated Glomerular Filt Rate >60 [facility] Comment:Chronic Kidney Disea se: Estimated GFR < 60 mL/min/1.60t7Vgljkj Kidney Disease: Estimated GFR < 15 mL/min/1.73m2 Glucose 83 60 - 115 mg/dL [facility] Calcium 9.3 8.4 - 10.2 mg/dL [facility] 05/24/2024 2:55 PM EST 05/24/2024 2:59 PM EST us Generic External Data Provider LAB BLOOD ORDERAB LES Final Result [facility] [address] [place] [phone] * (ABNORMAL) Lipid Panel, Standard (04/05/2024 8:02 AM EST) Triglycerides 201(H) <150 mg/dL [facility] Comment:Desirable Triglyceri de: less than 150 mg/dLBorderline High Triglyceride 150-199 mg/dLHigh Triglyceride: 200-499 mg/dLVery High Triglyceride: greater than or equal to 5OO mg/dL Cholesterol 244(H) <200 mg/dL [facility] Comment:Desirable Cholestero l: less than 200 mg/dLBorderline High Cholesterol: 200-239 mg/dLHigh Cholesterol: greater than 239 mg/dL LDL Cholesterol Calculated 166(H) <100 mg/dL [facility] Comment:Desirable LDL: less than 100 mg/dLNear Optimal/Above Optimal LDL: 110- 129 mg/dLBorderline High LDL: 130-159 mg/dLHigh LDL: 160-189 mg/dLVery High LDL: greater than or equal to 190 mg/dL HDL Cholesterol 38(L) >40 mg/dL [facility] Comment:Desirable HDL: great er than 40 mg/dL Note: This HDL assay may give artificially low results in patients with liver disease. 04/05/2024 8:02 AM EST 04/05/2024 10:57 AM EST [facility] Aryan [facility] LAB BLOOD ORDERABLES Final Resul t Performing Organization Address City/State/[facility] Co de Phone Number [facility] [address] [place] [phone] * Hm Colonoscopy (12/16/2019 5:19 PM EDT) Historical Provider HEALTH MAINTENANCE Final Result from Last 3 Months or Most Recently Relevant to Health Maintenance Insurance [facility] ALLIANCE Care Teams Senior Quality Assurance Analyst Relationship Specialty Start Date End Date Jay Lawler ANP [address] [place] [phone] PCP - General Family Medicine 08/23/19
--- OUTSIDE RECORDS SUMMARY | 2024-07-09 11:30 | XMS_ITS | Encounter Summary ---
Author Organization [employer] Address [address] [place] [address] [address] [place] [address] Care Team Providers Care Pump Installer Name Role Phone Waleska Baeza Primary Care Provider [phone] Reason for Visit * Reason Comments Med Refill Encounter Details Date Type Department Care Team ([facility] Contact Info) Description 08/11/[address] [facility] [address] [place] [address] Alexandria Alvarez FNP [address] [place] [address] Costochondritis Social History Tobacco Use Types Packs/Day [...] Upcoming Encounters Date Type Department Care Team ([facility] Contact Info) Description 07/11/2024 10:00 AM EDT Clinical Support [facility] [address] [place] [address] 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 RN [address] [place] [address] 08/10/2024 11:00 AM EDT Office Visit 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
--- OUTSIDE RECORDS SUMMARY | 2024-07-09 11:30 | XMS_ITS | Encounter Summary ---
Author Organization [employer] Address [address] [place] [address] 7[address] [place] [address] Care Team Providers Care Shrimp Header Name Role Phone Waleska Baeza Primary Care Provider [phone] Reason for Visit * Reason Comments Med Refill Encounter Details Date Type Department Care Team ([facility] Contact Info) Description 08/31/2022 Refill [facility] MED[facility] [address] [place] [address] [phone] Montse Quintanilla MD [address] [place] [address] [phone] Opioid type dependence, continuous (CMS/HCC) Social History [...] Upcoming Encounters Date Type Department Care Team ([facility] Contact Info) Description 07/11/2024 10:00 AM EDT Clinical Support [facility] MED[facility]INE [address] [place] [phone] 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 RN [address] [place] [address] 08/10/2024 11:00 AM EDT Office Visit [facility] [address] [place] [address] Montse Quintanilla MD [address] [place] [address] documented as of this encounter Visit Diagnoses Diagnosis Opioid type dependence, continuous (CMS/[facility]) Opioid type dependence, continuous documented in this encounter Care Teams Shrimp Header Relationship Specialty Start Date End Date Waleska Baeza ANP [address] [place] [phone] PCP - General Family Medicine 08/23/19 documented as of this encounter
--- OUTSIDE RECORDS SUMMARY | 2024-07-09 11:30 | XMS_ITS | Encounter Summary ---
Author Organization [employer] Address [address] [facility] 7t [place] [address] Care Team Providers Care Hot Strip Mill Supervisor Name Role Phone Waleska Baeza JUSTIN Primary Care Provider [phone] Reason for Visit * Reason Onset Date Comments Med Refill 07/06/2024 Encounter Details Date Type Department Care Team (Late st Contact Info) Description 07/06/2024 Refill [facility] [address] [place] [address] 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 RN [address] [place] [address] Opioid type dependence, continuous (CMS/HCC) Social History [...] Description 07/11/2024 10:00 AM EDT Clinical Support [facility] [address] [place] [phone] 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, RN [address] [place] [phone] 08/10/2024 11:00 AM EDT Office Visit [address] [address] Montse Quintanilla MD [address] [place] [phone] documented as of this encounter Goals Goal [...] documented as of this encounter Care Teams Hot Strip Mill Supervisor Relationship Specialty Start Date End Date Waleska Baeza ANP [address] [place] [phone] PCP - General Family Medicine 08/23/19 documented as of this encounter
--- OUTSIDE RECORDS SUMMARY | 2024-07-09 11:30 | XMS_ITS | Clinical Summary ---
Author Organization [address] [facility] Address [address] [place] [address] Phone Care Team Providers Care Senior Data Analyst Name Role Phone LeaLoretta dawn Primary Care Provider [phone] Allergies No known active allergies Medications buprenorphine-n aloxone (SUBOXONE) 8-2 [address] tablet [address] [...] tablet Take by mouth. At hs Active ciclopirox (PENLAC) 8 % solutionIndicat ions:Tinea pedis of both feet,Dermatophy tosis, nail Apply topically at bedtime. Apply over nail and surrounding skin. Apply daily over previous coat. After seven (7) days, may remove with alcohol and continue cycle. 6.6 mL 5 08/30/19 25 Active ketoconazole (NIZORAL) 2 % creamIndication s:Tinea pedis of both feet,Dermatophy tosis, nail Apply topically 1 (one) time each day. TO FEET 60 g 1 5 Active Active Problems Problem Noted Date Diagnosed Date Hepatitis C 02/04/2012 Encounters Date Type Department Care Team Description 05/31/2024 Telephone Orthopedic Surgery [facility] [address] [phone] Marcel Nagy DPM 05/30/2024 2:00 PM EST Office Visit Orthopedic [facility] [address] [phone] Marcel Nagy DPM Pain in toes of both feet (Primary Dx); Arthritis of both feet; Hammertoes of both feet; Tinea pedis of both feet; Dermatophytosis, nail from Last 3 Months Social History Tobacco Use Types Packs/Day Years Used Date Smoking Tobacco: Never Assessed Sex and Gender Information Value Date Recorded Sex Assigned at Not on file Legal Sex Male 12:25 PM EST Gender Identity Not on file Sexual Orientation Not on file Plan of Treatment Upcoming Encounters Date Type Department Care Team (Late st Contact Info) Description 08/30/2024 1:15 PM EDT Office Visit Orthopedic Surgery - [place] 250 175 [facility] [address] [place] [phone] Marcel Nagy DPM 175 [facility] 250 [place] [address] Health Maintenance Due Date Last Done Comments Hepatitis B Vaccines (2 of 3 - Risk 3-dose series) 07/30/2010 07/02/2010 Hepatitis A Vaccines (2 of 2 - Risk 2-dose series) 01/02/2011 07/02/2010 RSV Immunization Adult Patients (1 - Risk 60-74 years 1-dose series) 2015 COVID-19 Vaccine ( - 2023- season) 2023 Abdominal Aortic Aneurysm (AAA) Screen 02/10/2024 Colorectal Cancer Screening: Colonoscopy 02/10/2024 Falls Risk Assessment 02/10/2024 Hepatitis C Screening 02/10/2024 Medicare Annual Wellness Visit 02/10/2024 Social Influencers of Health Screening 02/10/2024 Depression Screening 04/21/2025 04/21/2024 Pneumococcal Vaccine: 50+ Years (3 of 3 - PCV20 or PCV21) 02/05/2026 02/05/2021, 06/03/2013, 10/25/2009 Cholesterol Screening (Lipid Panel) 04/05/2029 04/05/2024, 03/23/2024 DTaP,Tdap,and Td Vaccines (5 - Td or Tdap) 11/15/2029 [...] to complete this topic RSV Immunization Patients Under 20 months Aged Out No longer eligible based on patient's age to complete this topic Varicella Vaccines Aged Out No longer eligible based on patient's age to complete this topic Insurance [facility] Member Subscriber Plan / Payer (Ef fective 2024-Present) Name:Shaggy Concepcion Relation to Subscriber:Self Name:Shaggy Concepcion Payer ID:[id number] Group ID:Not on file Type:Not on file Address: [facility] [address] [address] MEDICAID - [place] [facility] [employer] MEDICARE Member Subscriber Plan / Payer (Ef fective 2020-Present) Name:Shaggy Concepcion Relation to Subscriber:Self Name:Shaggy Concepcion Payer ID:[id number] Group ID:[id number] Type:Not on file Address: [facility] [address] [phone] Care Teams Senior Data Analyst Relationship Specialty Start Date End Date Loretta Martinez DO [address] [place] [address] PCP - General Internal Medicine 12/15/11
--- OUTSIDE RECORDS SUMMARY | 2024-07-09 11:30 | XMS_ITS | Encounter Summary ---
Author Organization [employer] Address [address] [facility] 7t [place] [address] Care Team Providers Care Principal Systems Architect Name Role Phone Waleska Baeza JUSTIN Primary Care Provider [phone] Encounter Details Date Type Department Care Team (Late st Contact Info) Description 06/16/2023 Orders Only [facility] MEDICINE [address] [place], [place] [phone] Montse Quintanilla MD [address] [place] [address] Social History Tobacco Use Types Packs/Day Years [...] Description 07/11/2024 10:00 AM EDT Clinical Support [address] [address] 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, GINNA [address] [place] [phone] 08/10/2024 11:00 AM EDT Office Visit [facility] MEDICINE [address] [place] [address] Montse Quintanilla MD [address] [place] [phone] documented as of this encounter Visit Diagnoses Not on filedocumented in this encounter Additional Health Concerns Assessment Noted Time PHQ-9 Depression Total Score: 4 09/11/19 23 10:52 AM EDT documented as of this encounter Care Teams Principal Systems Architect Relationship Specialty Start Date End Date Waleska Baeza ANP [address] [place] [phone] PCP - General Family Medicine 08/23/19 documented as of this encounter
--- OUTSIDE RECORDS SUMMARY | 2024-07-09 11:30 | XMS_ITS | Encounter Summary ---
Author Organization [employer] Address [address] [facility] 7t [place] [address] Care Team Providers Care Alteration Tailor Apprentice Name Role Phone Waleska Baeza JUSTIN Primary Care Provider [phone] Encounter Details Date Type Department Care Team (Late st Contact Info) Description 08/02/2023 Orders Only [facility] MED[facility] [address] [place], [place] [phone] Provider, MD Tamiko Social History Tobacco Use [...] Description 07/11/2024 10:00 AM EDT Clinical Support [facility] [address] [place] [phone] 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 RN [address] [place] [phone] 08/10/2024 11:00 AM EDT Office Visit [facility] [address] [place] [phone] Montse Quintanilla MD [address] [place] [phone] documented as of this encounter Procedures Procedure Name Priority Date/Time Associated Diagnosis Comments COLONOSCOPY Routine 12/16/2019 5:19 PM EDT documented in this encounter Results * Hm Colonoscopy (12/16/2019 5:19 PM EDT) Historical Provider HEALTH MAINTENANCE Final Result documented in this encounter Visit Diagnoses Not on filedocumented in this encounter Additional Health Concerns Assessment Noted Time PHQ-9 Depression Total Score: 4 09/11/19 23 10:52 AM EDT documented as of this encounter Care Teams Alteration Tailor Apprentice Relationship Specialty Start Date End Date Waleska Baeza ANP [address] [place] [address] [phone] PCP - General Family Medicine 08/23/19 documented as of this encounter
--- OUTSIDE RECORDS SUMMARY | 2024-07-09 11:30 | XMS_ITS | Encounter Summary ---
Author Organization [employer] Address [address] [facility] [address]t [place] [address] Care Team Providers Care Equestrian Trainer Name Role Phone Waleska Baeza Primary Care Provider [phone] Encounter Details Date Type Department Care Team (Late Contact Info) Description 06/04/2022 Orders Only [facility] [address] [place], [place] [phone] Loretta Beltran LPN Social History Tobacco Use [...] Department Care Team (Late Contact Info) Description 07/11/2024 10:00 AM EDT Clinical Support [facility] MEDICINE [address] [place] [phone] 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, GINNA [address] [place] [address] 08/10/2024 11:00 AM EDT Office Visit [facility] MED[facility] [address] [place] [address] [phone] Montse Quintanilla MD [address] [place], [place] [phone] documented as of this encounter Visit Diagnoses Not on filedocumented in this encounter Care Teams Equestrian Trainer Relationship Specialty Start Date End Date Waleska Baeza ANP [address] [place], [place] [phone] PCP - General Family Medicine 08/23/19 documented as of this encounter
--- OUTSIDE RECORDS SUMMARY | 2024-07-09 11:30 | XMS_ITS | Encounter Summary ---
Author Organization [employer] Address [address] [place] [address] 7t [place] [address] Care Team Providers Care Controller Operations And Hr Manager Name Role Phone Waleska Baeza Primary Care Provider [phone] Reason for Visit * Reason Comments Med Refill Encounter Details Date Type Department Care Team (Late st Contact Info) Description 12/26/2022 Refill [facility] [address] [place] [phone] Alexandria Pablo, EMIR Tinea pedis of both feet Social History [...] Description 07/11/2024 10:00 AM EDT Clinical Support [address] [address] 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, GINNA [address] [place] [address] 08/10/2024 11:00 AM EDT Office Visit [facility] [address] [place] [address] [place] [address] Montse Quintanilla MD [address] [place] [address] documented as of this encounter Visit Diagnoses Diagnosis Tinea pedis of both feet documented in this encounter Additional Health Concerns Assessment Noted Time PHQ-9 Depression Total Score: 4 09/11/19 23 10:52 AM EDT documented as of this encounter Care Teams Controller Operations And Hr Manager Relationship Specialty Start Date End Date Waleska Baeza ANP [address] [place] [phone] PCP - General Family Medicine 08/23/19 documented as of this encounter
[2024-07-09 11:33] LABS: Troponin-I High Sensitivity < 2.7 ng/L (<3.5-35.0)
--- NOTE | 2024-07-09 11:44 | ED_ITS ---
HPI - Chest Pain General Chief Complaint: Chest Pain Stated Complaint: Ear & Abd pain Time Seen by Provider: 07/09/24 10:59 History of Present Illness HPI narrative: Patient is a 68-year-old male presents today with having left-sided lower chest pain worse with touch worse with deep breath. Has no history of DVT in the past. Has no history of blood clots in the past. Has no travel history. Has no leg swelling. Patient is from home. No history of diabetes positive history of hypertension positive history of smoking patient from home. The pain lasts for few sec. There was no coughing or congestion or upper respiratory symptoms. There is no diaphoresis. Never had any risk stratification done in the past. Never had a heart attack or stroke. Has a history of liver cirrhosis. Related Data Home Medications ?Medication ?Instructions ?Recorded ?Confirmed buprenorphine 8 mg-naloxone 2 mg 1 film buccal DAILY 01/12/20 05/26/24 sublingual film (Suboxone) ketoconazole 2 % topical cream 1 appl topical 11/12/23 05/26/24 quetiapine 50 mg tablet mg PO 05/26/24 05/26/24 Previous Rx's ?Medication ?Instructions ?Recorded linaclotide 145 mcg capsule 145 mcg PO QAM 60 days #60 caps 05/26/24 (Linzess) Allergies Allergy/AdvReac Type Severity Reaction Status Date / Time No Known Allergies Allergy Verified 07/09/24 10:39 Review of Systems 2 Review of Systems: Positive chest wall pain on the left lower chest Yes all other systems are reviewed and are negative PMFSH Past Medical History Attestation statement: The following information was validated with the patient. Medical History Rib pain on left side Chronic hepatitis C virus genotype 1a infection Cirrhosis of liver without ascites History of adenomatous polyp of colon Combined drug dependence excluding opioids Chronic constipation Seizures Anxiety Depression Surgical History History of pterygium excision History of prostate surgery Hx of cystoscopy Hx of endoscopy History of colonoscopy History of hernia repair Family History Family History Father No problems noted. Mother No problems noted. 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 Physical Exam 2 Vital Signs: Vital Signs: Last Vital Signs Temp 97.3 F 07/09/24 10:38 Pulse 79 07/09/24 10:38 Resp 18 07/09/24 10:38 BP 132/82 07/09/24 10:38 Pulse Ox 99 07/09/24 10:38 O2 Del Method Room Air 07/09/24 10:38 BMI result Body Mass Index 26.6 Appearance: Alert. Oriented X3. No acute distress. Eyes: Pupils equal, round and reactive to light. ENT: Pharynx normal. Neck: Normal inspection. Neck supple. No lymph nodes noted. No crepitus CVS: Normal heart rate and rhythm. Pulses normal. Normal S1 and S2 Respiratory: No respiratory distress. Breath sounds normal. No Wheezing. No rales Abdomen: Soft and nontender. No rigidity. No distention. good BS x4 Skin: Skin warm and dry. Normal skin color. Normal skin turgor. Extremities: No lower extremity edema. Neurovascular intact to all extremities. No Lacerations. No Rash Neuro: Oriented X 3. No motor deficit. No sensory deficit. Moving all extermities. No slurred speech Medical Decision Making Medical Decision Making MDM Narrative: my interpretation of patient's EKG showed a sinus rhythm heart rate is 70 NE QRS QTC normal no acute ST segment elevation there is T-wave flattening over 3 and AVF. Patient's troponin x2 sets were negative. My interpretation patient's chest x-ray negative for pneumonia no pneumothorax. Patient's D-dimer is negative. In the setting of low risk for PE unlikely to have pulmonary emboli. Will discharge patient home close follow-up on an outpatient basis. Differential Diagnosis Differential Diagnoses: The differential diagnosis associated with the presentation includes ACS, PE, pneumonia, rib fracture Admission/Observation Consideration of admission/observation: Escalation of care including admission/observation considered Lab Data [facility] Lab Attestation statement: I reviewed the patient's lab results. 07/09/24 10:56 07/09/24 10:56 Labs: Lab Results 07/09/24 07/09/24 Range/Units 10:56 11:47 WBC 5.1 (4.8-10.8) X10*3/uL RBC 4.76 (4.60-5.80) X10*6/uL Hgb 14.6 (14.0-18.0) g/dl Hct 41.5 L (42.0-52.0) % MCV 87.2 (80.0-98.0) fL MCH 30.7 (27.0-33.0) pg MCHC 35.2 (31.0-36.0) g/dl RDW 12.5 (11.0-16.0) % Plt Count 177 (160-400) X10*3/uL MPV 11.3 (9.4-12.4) fL Immature Gran % (Auto) 0.4 (0.0-0.4) % Neut % (Auto) 49.1 (45-73) % Lymph % (Auto) 38.0 (20-40) % Reynolds % (Auto) 8.1 (2-11) % Eos % (Auto) 2.6 (0-4) % Baso % (Auto) 1.8 (0-2) % Lymph # (Auto) 1.9 (1.2-4.9) X10*3/uL Reynolds # (Auto) 0.4 (0.1-1.2) X10*3/uL Eos # (Auto) 0.1 (0.0-0.4) X10*3/uL Baso # (Auto) 0.1 (0.0-0.2) X10*3/uL Abs Immat Gran (auto) 0.02 (0.00-0.03) X10*3/uL Absolute Neuts (auto) 2.5 (2.0-8.3) x10*3/uL Absolute Nucleated RBC 0.000 (0.0-0.012) X10*3/uL Nucleated RBC % (auto) 0.0 (0.0-0.2) /100WBC Smear Tech's Comments VERIFIED D-Dimer High Sensitivty < 150 NG/ML Sodium 140 (135-145) mmol/L Potassium 4.3 (3.3-5.1) mmol/L Chloride 108 (96-108) mmol/L Carbon Dioxide 23 (22-29) mmol/L Anion Gap 13 (12-20) BUN 12 (9-16) mg/dL Creatinine 0.91 (0.5-1.4) mg/dL Estim Creat Clear Calc 75.1 Estimated GFR > 60 Random Glucose 97 (60-115) mg/dL Calcium 9.2 (8.4-10.2) mg/dL Troponin I High Sens < 2.7 < 2.7 (<3.5-35.0) ng/L Independent Interpretation I performed an independent interpretation of an: EKG ( my interpretation patient's EKG as above) and Plain X-Ray ( chest x-ray negative for pneumonia pneumothorax) Radiology Impression Discussion of test interpretation with radiology: I have reviewed the radiologist's reading. Social Determinants Patient?s care significantly limited by Social Determinants of Health including: Problems related to primary support group Discharge Plan Discharge Clinical Impression: Chest pain Patient Disposition: Home, Self-Care Instructions: Chest Pain (ED) Prescriptions: No Action buprenorphine-naloxone [Suboxone] 8-2 mg film 1 film buccal DAILY quetiapine 50 mg tablet PO Linzess 145 mcg capsule 145 mcg PO QAM 60 Days Qty: 60 3RF ketoconazole 2 % cream 1 appl topical Referrals: Bradley Acosta MD [Physician] - 07/12/24 Print Language: Cymro
[2024-07-09 12:10] LABS: D Dimer High Sensitivity < 150 NG/ML
[2024-07-09 12:12] LABS: Troponin-I High Sensitivity < 2.7 ng/L (<3.5-35.0)
[2024-07-09 13:31] VITALS: BP 110/67; PULSE 64; RESP 16; TEMP -17.7; TEMP 0; O2SAT 97
== END 2024-07-09 13:32 | disposition home or self-care (01) ==
PROVIDERS: Emergency Provider Emergency Medicine Emergency Medical Services
DX: R07.9 Chest pain, unspecified (principal); I10 Essential (primary) hypertension; F17.210 Nicotine dependence, cigarettes, uncomplicated; Z79.899 Other long term (current) drug therapy
CPT/HCPCS: 36415; 71045; 80048; 84484; 85025; 85379; 93005; 99283; 99284

== ENCOUNTER → 2024-07-09 10:57 | Outpatient (BNV) | payer OTHER, SELFPAY | PROVIDERS: Emergency Provider Emergency Medicine Emergency Medical Services; Visit Provider Internal Medicine | DX: I49.1 Atrial premature depolarization (principal) | CPT/HCPCS: 93010 ==

== ENCOUNTER → 2024-07-09 11:40 | Outpatient (BNV) | payer OTHER, SELFPAY | PROVIDERS: Emergency Provider Emergency Medicine Emergency Medical Services; Visit Provider Radiology Diagnostic Radiology | DX: R06.02 Shortness of breath (principal) | CPT/HCPCS: 71045 ==

== ENCOUNTER 2024-10-31 08:41 | Outpatient (REF) | payer OTHER, SELFPAY ==
--- OUTSIDE RECORDS SUMMARY | 2024-10-31 09:08 | XMS_ITS | Patient Health Record ---
Author Organization [facility] Address [address] [place] [address] Care Team Providers Care Commissioning Editor Name Role Phone Loretta Martinez M.D. Primary Care Provider Melody vailable Edwin De Leon Unavailable [phone] Reason For Referral No Information Plan Of Treatment No Information Insurance Providers Payer Name Payer Address Payer Phone Subscriber Number Group Number Insured Name Patient Relationship to Insured Coverage Start Date Coverage End Date [facility] [address] [address] [place], [place] [id number] pt. will call SHAHRAM MCNEIL Self - patient is the insured
--- OUTSIDE RECORDS SUMMARY | 2024-10-31 09:08 | XMS_ITS | Clinical Summary ---
Author Organization [address] [place] [address] Address [address] [place] [address] Phone Care Team Providers Care Family Resource Coordinator Name Role Phone CamilaLoretta rebolledo Leisa DUKES Primary Care Provider [phone] Allergies No known active allergies Medications buprenorphine-n [...] tablet Take by mouth. At hs Active ketoconazole (NIZORAL) 2 % creamIndication s:Tinea [...] Orientation Not on file Plan of Treatment Health Maintenance Due Date Last Done Comments Hepatitis B Vaccines (2 of 3 - Risk 3-dose series) 07/30/2010 07/02/2010 Hepatitis A Vaccines (2 of 2 - Risk 2-dose series) 01/02/2011 07/02/2010 RSV Immunization Adult Patients (1 - Risk 60-74 years 1-dose series) 2015 COVID-19 Vaccine ( season) 2023 Abdominal Aortic Aneurysm (AAA) Screen 02/10/2024 Colorectal Cancer Screening: Colonoscopy 02/10/2024 Falls Risk Assessment 02/10/2024 Hepatitis C Screening 02/10/2024 Medicare Annual Wellness Visit 02/10/2024 Social Influencers of Health Screening 02/10/2024 Depression Screening 04/06/2024 Influenza Vaccine (#1) 2024 4, 12/11/2022, 01/17/2022, Additional history exists Pneumococcal Vaccine: 50+ Years (3 of 3 - PCV20 or PCV21) 02/05/2026 02/05/2021, 06/03/2013, 10/25/2009 Cholesterol Screening (Lipid Panel) 04/05/2029 04/05/2024, 03/23/2024 DTaP,Tdap,and Td Vaccines (5 - Td or Tdap) 11/15/2029 11/16/2019, 11/11/2019, 08/16/2016, Additional history exists Zoster Vaccines Completed 01/13/2020, 11/10/2019 HIB Vaccines Aged Out No longer eligi [...] age to complete this topic Meningococcal B Vaccine Aged Out No l onger eligible based on patient's age to complete this topic RSV Immunization Patients Under 20 months Aged Out No longer eligible based on patient's age to complete this topic Varicella Vaccines Aged Out No longer eligible based on patient's age to complete this topic Insurance [facility] Member Subscriber Plan / Payer (Ef fective 2024-Present) Name:Shaggy GERMAN Relation to Subscriber:Self Name:Shaggy GERMAN Payer ID:[id number] Group ID:Not on file Type:Not on file Address: [address] [place] [address] [place] - [place] [facility] MEDICARE Member Subscriber Plan / Payer (Ef fective 2020-Present) Name:Shaggy German Relation to Subscriber:Self Name:Shaggy GERMAN Payer ID:[id number] Group ID:[id number] Type:Not on file Address: [address] [place] [address] MEDICARE Care Teams Family Resource Coordinator Relationship Specialty Start Date End Date Loretta Martinez DO [address] [place] [address] PCP - General Internal Medicine 12/15/11
[2024-10-31 12:23] LABS: Anion Gap 11 (12-20); Blood Urea Nitrogen 12 mg/dL (9-16); Calcium 9.2 mg/dL (8.4-10.2); Carbon Dioxide 28 mmol/L (22-29); Chloride 105 mmol/L (96-108); Cholesterol 237 mg/dL (<200); Estimated Glomerular Filt Rate > 60; HDL Cholesterol 33 mg/dL (>40); Potassium 4.1 mmol/L (3.3-5.1); Sodium 140 mmol/L (135-145); Triglycerides 142 mg/dL (<150)
[2024-11-03 21:04] LABS: CK-BB None Detected (None Detected); CK-MB 0 % (<5); CK-MM 100 % (95-100); Creatine Kinase,Total,Serum 183 U/L (22-308)
== END 2024-10-31 08:42 | disposition home or self-care (01) ==
LOC: HO.HHCL 08:41
PROVIDERS: PCP Nurse Practitioner Primary Care; Visit Provider Nurse Practitioner Primary Care
DX: Z00.00 Encounter for general adult medical examination without abnormal findings (principal); E78.5 Hyperlipidemia, unspecified; R79.89 Other specified abnormal findings of blood chemistry
CPT/HCPCS: 36415; 80048; 80061; 82306; 82552; 83525

== ENCOUNTER 2025-02-01 09:51 | Outpatient (REF) | payer OTHER, SELFPAY ==
--- NOTE | ~2025-02-01 | CT_ITS ---
EXAMINATION: CT CHEST WITHOUT CONTRAST CLINICAL INFORMATION: Chronic left-sided chest wall pain. COMPARISON: Correlated to x-ray dated July 09, 2024. TECHNIQUE: Multidetector volumetric CT imaging of the chest was done. Axial MIP volume rendering provided. Sagittal and coronal reformatted images were obtained. This CT examination was performed using dose optimization techniques as appropriate, variously including the following: *Automated exposure control *Adjustment of mA and/or kV according to patient size (this includes techniques or standardized protocols for targeted exams where dose is matched to indication/reason for exam; i.e. extremities or head) *Use of iterative reconstruction technique DLP: 147 mGy-cm FINDINGS: HAIR MACHINE OPERATOR: Satisfactory inspiration. Cardiomediastinal silhouette size is normal. Multilevel spondylosis. Upper extremities at the size of the head. LUNGS: No gross pulmonary nodules. No acute airspace disease. No honeycombing. No bronchiectasis. Bilateral apical lung scarring. Multiple noncalcified less than 3 mm nodules throughout the wall of the airways from the trachea to the subsegmental pulmonary branches. MEDIASTINUM: Subcentimeter lymph nodes, mediastinum. Heart is not enlarged. No pericardial effusion. No pneumomediastinum. No aneurysm, thoracic aorta. The thyroid gland is not enlarged with nodularity. CORONARY ARTERY CALCIFICATION: Subtle calcifications. PLEURA: No pneumothorax. No calcified pleural plaques. No pleural effusion. No hemothorax. AXILLA: Nonspecific prominent axillary lymph nodes. UPPER ABDOMEN: No gross hydronephrosis or nephrolithiasis. On this exam. Probable cholelithiasis. OSSEOUS STRUCTURES: Multilevel spondylosis without acute fracture or listhesis. Multiple syndesmophyte formation and marginal osteophyte formation with preservation of the intervertebral disc height in the mid thoracic spine involving multiple sequential vertebral bodies. No lytic or blastic lesions. Osteopenia versus osteoporosis. No acute rib fracture. 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 Probable cholelithiasis. DISH, mid thoracic spine. Fleischner guidelines were followed. Electronically signed by: Broyn Su MD 02/01/2025 10:25 AM EDT
--- OUTSIDE RECORDS SUMMARY | 2025-02-01 11:51 | XMS_ITS | Encounter Summary ---
Author Organization [employer] Address [address] [facility] 7t [place] [address] Care Team Providers Care Registered Nurse Supervisor Name Role Phone Waleska Baeza Primary Care Provider [phone] Rodney Marrufo MD Unavailable [phone] Essie Larry MD Unavailable [phone] Encounter Details Date Type Department Care Team (Late st Contact Info) Description 08/02/2023 Orders Only [facility] [address] [place] [address] Provider, MD Tamiko Social History Tobacco Use [...] Care Team (Late st Contact Info) Description 02/22/2025 9:30 AM EST Office Visit [address] [address] Montse Quintanilla MD [address] [place] [address] 02/22/2025 3:00 PM EST Office Visit [address] [address] Waleska Baeza ANP [address] [place] [address] documented as of this encounter Procedures Procedure [...] documented as of this encounter Care Teams Registered Nurse Supervisor Relationship Specialty Start Date End Date Waleska Baeza ANP [address] [place] [address] PCP - General Family Medicine 08/23/19 Rodney Marrufo MD [address] [place] [address] Urology 11/11/24 Essie Larry MD [address] [place] [address] [place] [address] Gastroenterology 11/11/24 documented as of this encounter
--- OUTSIDE RECORDS SUMMARY | 2025-02-01 11:51 | XMS_ITS | Encounter Summary ---
Author Organization [employer] Address [address] [place] [address] 7t [place] [address] Care Team Providers Care Community Educator Name Role Phone Waleska Baeza JUSTIN Primary Care Provider [phone] Rodney Marrufo MD Unavailable [phone] Essie Larry MD Unavailable [phone] Reason for Visit * Reason Comments Med Refill Encounter Details Date Type Department Care Team ([facility] Contact Info) Description 08/31/2022 Refill [facility] [address] [place] [address] Montse Quintanilla MD [address] [place] [address] Opioid type dependence, continuous (CMS/HCC) Social History [...] Upcoming Encounters Date Type Department Care Team ([facility] Contact Info) Description 02/22/2025 9:30 AM EST Office Visit [facility] [address] [place] [address] Montse Quintanilla MD [address] [place] [address] 02/22/2025 3:00 PM EST Office Visit [address] [address] Waleska Baeza ANP [address] [place] [address] documented as of this encounter Visit Diagnoses Diagnosis Opioid type dependence, continuous (CMS/HCC) (HCC) Opioid type dependence, continuous documented in this encounter Care Teams Community Educator Relationship Specialty Start Date End Date Waleska Baeza ANP [address] [place] [address] PCP - General Family Medicine 08/23/19 Rodney Marrufo MD [address] [place] [address] Urology 11/11/24 Essie Larry MD [address] [place] [address] Gastroenterology 11/11/24 documented as of this encounter
--- OUTSIDE RECORDS SUMMARY | 2025-02-01 11:51 | XMS_ITS | Clinical Summary ---
Author Organization [address] [place] [address] Address [address] [place] [address] Phone Care Team Providers Care Oncologist Name Role Phone CamilaLoretta rebolledo Leisa DUKES Primary Care Provider [phone] Allergies No known active allergies Medications buprenorphine-n [...] Health Maintenance Due Date Last Done Comments Colorectal Cancer Screening: Colonoscopy 1955 RSV Immunization Adult Patients (1 - Risk 50-74 years 1-dose series) 07/12/2005 Hepatitis B Vaccines (2 of 3 - Risk 3-dose series) 07/30/2010 07/02/2010 Hepatitis A Vaccines (2 of 2 - Risk 2-dose series) 01/02/2011 07/02/2010 Abdominal Aortic Aneurysm (AAA) Screen 02/10/2024 Falls Risk Assessment 02/10/2024 Hepatitis C Screening 02/10/2024 Medicare Annual Wellness Visit 02/10/2024 Social Influencers of Health Screening 02/10/2024 Depression Screening 04/06/2024 COVID-19 Vaccine ( season) 2024 Influenza Vaccine (#1) 2024 , 12/11/2022, 01/17/2022, Additional history exists Pneumococcal Vaccine: [...] patient's age to complete this topic Insurance [facility] OPTIONS Member Subscriber Plan / Payer (Ef fective 2024-Present) Name:Shaggy GERMAN Relation to Subscriber:Self Name:Shaggy GERMAN Payer ID:[id number] Group ID:Not on file Type:Not on file Address: [address] [place] [address] MED[place]ID - [place] [facility] MEDICARE Member Subscriber Plan / Payer (Ef fective 2020-Present) Name:Shaggy German Relation to Subscriber:Self Name:Shaggy GERMAN Payer ID:[id number] Group ID:[id number] Type:Not on file Address: [address] [place] [address] MEDICARE Care Teams Oncologist Relationship Specialty Start Date End Date Loretta Martinez DO [address] [place] [address] PCP - General Internal Medicine 12/15/11
--- OUTSIDE RECORDS SUMMARY | 2025-02-01 11:51 | XMS_ITS | Encounter Summary ---
Author Organization [employer] Address [address] [facility] 7t [place] [address] Care Team Providers Care Warehouse Packaging Supervisor Name Role Phone Aryan Waleska ANDERSON Primary Care Provider [phone] Rodney Marrufo MD Unavailable Essie Larry MD Unavailable [phone] Reason for Visit * Reason Comments Med Refill Encounter Details Date Type Department Care Team (Late st Contact Info) Description 08/11/2022 Refill [facility] [address] [place] [address] Alexandria Alvarez FNP [address] [place] [address] Costochondritis Social History Tobacco Use Types Packs/Day [...] AM EDT documented as of this encounter Functional Status * Over the past 2 weeks, how often have you been bothered by any of the following problems? Question Answer Date of Assessment Author Little interest or pleasure in doing things Not at all 08/11/2022 2:49 PM EDT Effie Arora [place] Feeling down, depressed, or hopeless Not at all 08/11/2022 2:49 PM EDT Effie Arora [place] Patient Health Questionnaire -2 Score 0 08/11/2022 2:49 PM EDT Effie Arora [place] documented as of this encounter Plan of Treatment Upcoming Encounters Date Type Department Care Team (Late st Contact Info) Description 02/22/2025 9:30 AM EST Office Visit [facility] [address] [place] [address] Montse Quintanilla MD [address] [place] [address] 02/22/2025 3:00 PM EST Office Visit [address] [address] Waleska Baeza ANP [address] [place] [address] documented as of this encounter Visit Diagnoses Diagnosis 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
--- OUTSIDE RECORDS SUMMARY | 2025-02-01 11:51 | XMS_ITS | Encounter Summary ---
Author Organization [employer] Address [address] [facility] 7t [place] [address] Care Team Providers Care Patient Case Coordinator Name Role Phone Aryan Waleska ANDERSON Primary Care Provider Rodney Marrufo MD Unavailable [phone] sEsie Larry MD Unavailable [phone] Encounter Details Date Type Department Care Team (Late st Contact Info) Description 06/16/2023 Orders Only [facility] [address] [place] [address] Montse Quintanilla MD [address] [place] [address] Social History Tobacco Use Types Packs/Day Years [...] Description 02/22/2025 9:30 AM EST Office Visit [facility] [address] [place] [address] Montse Quintanilla MD [address] [place] [address] 02/22/2025 3:00 PM EST Office Visit [address] [address] Waleska Baeza ANP [address] [place] [address] documented as of this encounter Visit Diagnoses Not on filedocumented in this encounter Additional Health Concerns Assessment Noted Time PHQ-9 Depression Total Score: 4 09/11/19 23 10:52 AM EDT documented as of this encounter Care Teams Patient Case Coordinator Relationship Specialty Start Date End Date Waleska Baeza ANP [address] [place] [address] PCP - General Family Medicine 08/23/19 Rodney Marrufo MD [address] [place] [address] Urology 11/11/24 Essie Larry MD [address] [place] [address] Gastroenterology 11/11/24 documented as of this encounter
--- OUTSIDE RECORDS SUMMARY | 2025-02-01 11:51 | XMS_ITS | Patient Health Record ---
Author Organization [facility] Address [address] [place] [address] Care Team Providers Care Chemical Treatment Plant Technician Name Role Phone Loretta Martinez M.D. Primary Care Provider Melody vailable Edwin De Leon Unavailable [phone] Reason For Referral No Information Plan Of Treatment No Information Insurance Providers Payer Name Payer Address Payer Phone Subscriber Number Group Number Insured Name Patient Relationship to Insured Coverage Start Date Coverage End Date [facility] [address] [address] [place], [place] [id number] pt. will call SHAHRAM MCNEIL Self - patient is the insured
--- OUTSIDE RECORDS SUMMARY | 2025-02-01 11:51 | XMS_ITS | Encounter Summary ---
Author Organization [employer] Address [address] [place] [address] 7t [place] [address] Care Team Providers Care Blank Driller Name Role Phone Aryan Waleska ANDERSON Primary Care Provider [phone] Rodney Marrufo MD Unavailable [phone] Essie Larry MD Unavailable Reason for Visit * Reason Comments [facility] Encounter Details Date Type Department Care Team ([facility] st Contact Info) Description 01/30/2025 Patient Outreach [facility] [address] [place] [address] Mansoor Calixto [address] [place] [address] [facility] Social History Tobacco Use Types [...] as of this encounter Progress Notes * Mansoor Calixto - 01/30/2025 2:12 PM EDT I met with Shaggy today. Setting: in person at [facility] Goals worked on: Social Stability Action taken/next steps: Attended alcohol and drug free activity Additional comments: Mansoor Calixto documented in this encounter Plan of Treatment Upcoming Encounters Date Type Department Care Team (Late st Contact Info) Description 02/22/2025 9:30 AM EST Office Visit [facility] [address] [place] [address] Montse Quintanilla MD [address] [place] [address] 02/22/2025 3:00 PM EST Office Visit [facility] [address] [place] [address] Waleska Baeza ANP [address] [place] [address] documented as of this encounter Goals Goal Patient Goal Type Associated Problems Recent Progress Patient-Stated? Author Increase coping skills to promote long-term recovery and improve ability to perform daily activities General On track( 025 10:17 AM EDT) No 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, GINNA documented as of this encounter Visit Diagnoses Not on filedocumented in this encounter Additional Health Concerns Assessment Noted Time PHQ-9 Depression Total Score: 3 04/21/19 25 1:02 PM EST documented as of this encounter Care Teams Blank Driller Relationship Specialty Start Date End Date Waleska Baeza ANP [address] [place] [address] PCP - General Family Medicine 08/23/19 Rodney Marrufo MD [address] [place] [address] Urology 11/11/24 Essie Larry MD [address] [place] [address] Gastroenterology 11/11/24 documented as of this encounter
--- OUTSIDE RECORDS SUMMARY | 2025-02-01 11:51 | XMS_ITS | Encounter Summary ---
Author Organization [employer] Address [address] [place] [address] 7t [place] [address] Care Team Providers Care Community Health Program Representative Name Role Phone Waleska Baeza JUSTIN Primary Care Provider [phone] Rodney Marrufo MD Unavailable [phone] Essie Larry MD Unavailable [phone] Encounter Details Date Type Department Care Team ([facility] Contact Info) Description 06/04/2022 Orders Only [facility] [address] [place], [place] [phone] Loretta Beltran LPN Social History Tobacco Use [...] Upcoming Encounters Date Type Department Care Team ([facility] Contact Info) Description 02/22/2025 9:30 AM EST Office Visit [facility] [address] [place], [place] [phone] Montse Quintanilla MD [address] [place], [place] [phone] 02/22/2025 3:00 PM EST Office Visit [facility] [address] [place] [address] Waleska Baeza ANP [address] [place] [address] documented as of this encounter Visit Diagnoses Not on filedocumented in this encounter Care Teams Community Health Program Representative Relationship Specialty Start Date End Date Waleska Baeza ANP [address] [place] [address] PCP - General Family Medicine 08/23/19 Rodney Marrufo MD [address] [place] [address] Urology 11/11/24 Essie Larry MD [address] [place] [address] Gastroenterology 11/11/24 documented as of this encounter
--- OUTSIDE RECORDS SUMMARY | 2025-02-01 11:51 | XMS_ITS | Clinical Summary ---
Author Organization [employer] Address [address] [place] [address] [address] [place] [address] Care Team Providers Care Brush Stainer Name Role Phone Jay Lawler JUSTIN Primary Care Provider [phone] Rodney Marrufo MD Unavailable [phone] Essie Larry MD Unavailable [phone] Allergies Active Allergy Reactions Criticality Noted Date [...] every day a thin layer to FACE 02/06/20 21 Active Dimethicone (Aveeno Skin Relief) 1.3 % lotion apply topically to feet daily in AM 09/26/19 22 Active salicylic acid-lactic acid (Compound W) 17 % external solution 1-2 drops to affected area and cover with occlusive bandage for 12 hours daily 05/13/19 22 Active Bacitracin-Polymyx in B (SM Double Antibiotic) 500-71758 UNIT/GM ointmentIndication s:Tinea pedis of both feet APPLY TO THE AFFECTED AREA(S) TOPICALLY TWICE DAILY 28.4 g 07/26/19 23 Active naloxone (Narcan) 4 mg/0.1 mL nasal spray FOR SUSPECTED OPIOID OVERDOSE. SPRAY 0.1mL IN ONE NOSTRIL. REPEAT IN ALTERNATE NOSTRIL 2-3 MINUTES IF NEEDED. SEEK MEDICAL ATTENTION IMMEDIATELY EVEN IF PATIENT RESPONDS. 02/26/20 22 Active HM ClearLax 17 GM/SCOOP powder TAKE 17 GM MIXED IN 8 OUNCES OF WATER, COFFEE OR TEA ONCE DAILY 07/23/19 23 Active sennosides (Senokot) 8.6 MG tablet take once daily by mouth as needed for constipation. Start taking after bowel movements are regular using Miralax powder 11/02/19 20 Active lidocaine-prilocai ne (Emla) 2.5-2.5 % creamIndications:C ostochondritis APPLY A THIN LAYER TO AFFECTED AREA(S) TOPICALLY 1 TO 2 TIMES DAILY NEEDED FOR PAIN 30 g 1 08/13/19 23 Active finasteride (Proscar) 5 MG tablet Take 5 mg by mouth in the morning. 08/13/19 23 Active terazosin (Hytrin) 5 MG capsule 09/06/19 23 Active Diclofenac Sodium 1 % gelIndications:Cos tochondritis APPLY 2 GRAMS TOPICALLY TO AFFECTED AREA(S) THREE TIMES DAILY NEEDED (FOR DISCOMFORT en el CHEST) 100 g 1 10/14/19 23 Active ketoconazole (NIZOral) 2 % shampooIndications :Seborrheic dermatitis APPLY TO DAMP SCALP, LATHER, LEAVE FOR 5 MINUTES THEN RINSE WITH WATER. USE 3-7 DAYS PER WEEK DIRECTED 120 mL 11 12/12/19 23 Active Bisacodyl EC 5 MG EC tablet TAKE 2 TABLETS BY MOUTH ONCE AT NOON THE DAY BEFORE COLONOSCOPY 10/24/19 23 Active ketoconazole (NIZOral) 2 % creamIndications:T inea pedis of both feet,Seborrheic dermatitis To face as needed daily and to feet as needed twice daily 60 g 2 04/28/19 24 Active baclofen (Lioresal) 10 MG tablet TAKE 1 TABLET BY MOUTH THREE TIMES DAILY IN THE MORNING, AT NOON, AND AT BEDTIME NEEDED FOR MUSCLE SPASMS 60 tablet 1 05/11/19 24 Active Refresh Tears 0.5 % ophthalmic solution INSTILL 1 DROP INTO THE AFFECTED EYE(S) NEEDED 15 mL 5 05/13/19 24 Active ergocalciferol (Vitamin D2) 1.25 MG (69616 UT) capsuleIndications :Vitamin D deficiency TAKE 1 CAPSULE BY MOUTH EVERY MORNING (ONCE PER MONTH) 1 capsule 05/20/19 24 Active Petrolatum ointment apply topically to feet nightly after soaking 454 g 06/12/19 24 Active omeprazole (PriLOSEC) [address] capsule Take 1 capsule (20 mg) by mouth if needed each day (reflux, mongolian label). Do not crush or chew. 14 capsule 11/25/19 24 Active fluocinolone (Biddle-Smoothe) 0.01 % external oilIndications:Kiko orrheic dermatitis APPLY TOPICALLY TO DAMP SCALP BEFORE BEDTIME. WRAP HEAD. WASH OUT IN THE MORNING. USE 3x PER WEEK to treat, USE EVERY 1 TO 2 WEEKS TO PREVENT. 118.28 mL 1 04/18/19 25 Active acetaminophen (Tylenol) 500 MG tabletIndications: Acute nonintractable headache, unspecified headache type Take 1 tablet (500 mg) by mouth every 6 (six) hours if needed for moderate pain or fever. 30 tablet 05/21/19 25 Active ibuprofen 400 MG tabletIndications: Acute nonintractable headache, unspecified headache type Take 1 tablet (400 mg) by mouth every 6 (six) hours if needed for moderate pain or fever for up to 30 doses. 30 tablet 05/21/19 25 Active nicotine (Nicoderm CQ) 7 MG/24HR patch Place 1 patch on the skin 1 (one) time each day at the same time. 14 patch 05/24/19 Active Additional Information Patient not taking.Reported on 10/25/2024 nicotine (Nicoderm CQ) 14 MG/24HR patch Place 1 patch on the skin 1 (one) time each day at the same time. 42 patch 05/24/19 Active Additional Information Patient not taking.Reported on 10/25/2024 nicotine polacrilex (Commit) 2 MG lozenge Dissolve 1 lozenge (2 mg) in the mouth if needed for smoking cessation. 100 lozenge 05/24/19 Active Additional Information Patient not taking.Reported on 10/25/2024 fluticasone (Flonase) 50 MCG/ACT nasal sprayIndications:C hronic dysfunction of right eustachian tube Administer 1-2 sprays into each nostril Once per day. Shake gently. Before first use, prime pump. After use, clean tip and replace cap. 16 g 2 06/11/19 25 Active Additional Information Patient not taking.Reported on 10/25/2024 loratadine (Claritin) 10 MG tabletIndications: Ear congestion, right Take 1 tablet (10 mg) by mouth Once per day. 30 tablet 2 06/16/19 25 Active triamcinolone (Kenalog) 0.1 % creamIndications:I tching MIX triamcinolone WITH cerave AND APPLY TOPICALLY TO THE AFFECTED AREA(S) OF THE CHEST AND BACK TWICE DAILY DIRECTED 60 g 1 06/21/19 25 Active hydrocortisone 2.5 % cream APPLY TO THE AFFECTED AREA(S) TOPICALLY TWICE DAILY 30 g 1 06/29/19 25 Active pravastatin (Pravachol) 20 MG tabletIndications: Mixed hyperlipidemia Take 1 tablet daily at bedtime 90 tablet 3 10/26/19 25 Active QUEtiapine (SEROquel) 50 MG tabletIndications: Depressive disorder,Insomnia, unspecified type Take 1 tablet (50 mg) by mouth at bedtime. 90 tablet 11/16/19 25 Active Suboxone 8-2 MG SL filmIndications:Op ioid type dependence, continuous (CMS/HCC) (HCC) Place 1 Film under the tongue 3 times daily. 84 Film 1 12/22/19 25 025 Active Active Problems Problem Noted Date Diagnosed [...] onset of bitemporal headache described when severe 10 right now approximately 3/10 . Thinks he [...] both eyes 08/11 Overview (08/11/2022): Followed at [facility], last visit 07/17/2022 Seizure disorder (CMS/HCC) 05/14/2022 Inactive tuberculosis 08/26/2019 Rosacea 04/09/2018 Portal hypertensive gastropathy (CMS/HCC) ([facility]/H CC) 11/20/2017 Contact dermatitis 09/07/2017 Cirrhosis of liver (CMS/HCC) 08/31/2017 Hepatitis B core antibody positive 07/31/2017 Benign prostatic hyperplasia 07/02/2016 CHARLINE (generalized anxiety disorder) 07/02/2016 Chronic hepatitis C (CMS/HCC) 07/02/2016 Moderate major depression (CMS/HCC) 07/02/2016 Assessment & Plan (09/10/2022 1:27 PM [...] Shaggy is already engage with services at [facility]. Provided education around integrated medicine and the options of follow up BE's as needed. Provided contact information should questions or concerns arise. Plan: Shaggy will continue to engage in effective coping mechanisms that has worked for him. He will implement coping skills discussed in session and will keep appts with therapist at [facility]. Patient with lack of motivation, low mood, insomnia, little energy, He denies SI, HI, or self-harm. Living alone, isolating no informal supports. Patient will benefit from continuation of MH services with [facility]. At this time Shaggy Saucedo meets criteria for Visit Diagnoses: Problem List Items Addressed This Visit Other Depressive disorder Patient ready to address current needs already engage in servies Strengths include Shaggy is able to advocate for himself. PLAN: 1. Follow up with [facility] [place]: Not recommended for follow-up 2. Patient goal is to improve mood and manage sxs 3. Behavioral Recommendations a. Continuation of services with [facility] b. Using coping Mechanisms Opioid dependence 07/02/2016 Assessment & Plan (12/27/2024 9:49 PM EDT): -maintenance stage -Last positive Utox Apr 2019, positive opi -Pt is participating in a group session at [facility] -overdose risk: average-intermediate (Hx seizure disorder, anxiety / depression, decreased tolerance) -reviewed harm reduction and OD prevention -continue current Tx plan and recovery support Assessment & Plan (11/30/2024 5:33 AM EDT): -maintenance stage -Last positive Utox Apr 2019, positive opi -Pt is participating in a group session at [facility] -overdose risk: average-intermediate (Hx seizure disorder, anxiety / depression, decreased tolerance) -reviewed harm reduction and OD prevention -continue current Tx plan and recovery support Assessment & Plan (06/14/2024 4:07 PM EDT): [...] organization. Date Type Department Care Team Description 01/30/2025 Patient Outreach [facility] [address] [place] [phone] Mansoor Calixto RC Recovery Supports 01/27/2025 Patient Outreach [facility] [address] [place] [phone] Sherman Malone [facility] Recovery Supports 01/23/2025 Patient Outreach [facility] [address] [place] [phone] Fazal Chang [facility] Recovery Supports 01/19/2025 Patient Outreach [facility] [address] [place] [phone] Akbar Mandujano [facility] Recovery Supports 01/17/2025 Patient Outreach [facility] [address] [place] [phone] Fazal Chang [facility] Recovery Supports 01/12/2025 Patient Outreach [facility] [place] [address] Akbar Mandujano Recovery Supports 12/30/2024 Patient Outreach [facility] [place] [address] Akbar Mandujano Recovery Supports 12/28/2024 9:30 AM EDT Office Visit [facility] [place] [address] Montse Quintanilla MD Uncomplicated opioid dependence (CMS/HCC) (Primary Dx); Encounter for immunization 12/28/2024 Travel 12/21/2024 Refill [facility] [place] [address] 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 RN Opioid type dependence, continuous (CMS/HCC) 12/19/2024 Telephone [facility] [address] [place], [place] [address] [address] Jay Lawler ANP nov recall 11/30/2024 9:15 AM EDT Office Visit [facility] [place] [address] Montse Quintanilla MD Uncomplicated opioid dependence (CMS/HCC) (Primary Dx) 11/30/2024 Travel 11/23/2024 Refill [facility] [place] [address] 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 RN Opioid type dependence, continuous (CMS/HCC) 11/15/2024 Refill [facility] [place] [address] Jay Lawler ANP Depressive disorder; Insomnia, unspecified type 11/15/2024 Refill [facility] [place] [address] Jay Lawler ANP Depressive disorder; Insomnia, unspecified type 11/10/2024 Patient Outreach [facility] [place] [address] Akbar Mandujano Recovery Supports 11/10/2024 Telephone [facility] [address] [place] [phone] Jay Lawler ANP Referral from Last 3 Months Immunizations Immunization Administration Dates Next Due Hep A, Adult 07/02/2010 Hep B, adult 07/02/2010 Influenza High-dose Quadriva lent Preservative Free 01/02/2021 Influenza injectable quadriv alent IIV4 with preservative 01/01/2018,12/25/2016,07/02/2016 Influenza injectable quadriv alent preservative free 12/11/2022,01/17/2022,02/14/2020 Influenza, High Dose Seasona l, Preservative Free 12/28/2024,01/08/2024 Influenza, IIV3, injectable 12/15/2013 Influenza, Split (incl. [...] Reading Time Taken Comments Blood Pressure 128/83 10/25/2024 1:33 PM EDT Pulse 69 10/25/2024 1:33 PM EDT Temperature 36.3 C (97.3 F) 07/09/2024 9:47 AM EDT Respiratory Rate 16 10/25/2024 1:33 PM EDT Oxygen Saturation 98% 07/09/2024 9:47 AM EDT Inhaled Oxygen Concentration - - Weight 74.4 kg (164 lb) 10/25/2024 1:33 PM EDT Height 180.3 cm (5' 11 ) 10/25/2024 1:33 PM EDT Body Mass Index 22.87 10/25/2024 1:33 PM EDT Plan of Treatment Upcoming Encounters Date Type Department Care Team (Late st Contact Info) Description 02/22/2025 9:30 AM EST Office Visit [facility] [address] [place] [phone] Montse Quintanilla MD [address] [place] [phone] 02/22/2025 3:00 PM EST Office Visit [facility] [address] [place] [phone] Jay Lawler ANP [address] [place] [address] [phone] Health Maintenance Due Date Last Done Comments Anal Pap 1955 CT Colonography 1955 FIT DNA/Cologuard 1955 FIT 1955 FOBT 1955 Sigmoidoscopy 1955 Dental X-Ray: Bitewings 05/29/2010 05/28/2009 Hepatitis A Vaccines (2 of 2 - Risk 2-dose series) 01/02/2011 07/02/2010 Dental Prophylaxis 03/24/2014 09/21/2013, 1 04/17/2009, 08/14/2009 RSV Patients and Patients Aged 60 years or older (1 - Risk 60-74 years 1-dose series) 2015 Dental Oral Exam 12/15/2016 06/13/2016, 06/19/2009 COVID-19 Vaccine ( season) 2024 Depression Screening 04/21/2025 04/21/2024, 04/21/19 25 SDOH Screening 05/04/2025 05/04/2024 Alcohol/Substance Use Screening 05/17/2025 05/17/2024 Dental X-Ray: Full Mouth 08/20/2025 023, 06/13/2016, 05/28/2009 Hepatitis B Vaccines (2 of 3 - Risk 3-dose series) 11/11/2025 07/02/2010 Postponed from 07/30/2010 (Patient Refused) Tobacco Screening 11/30/2025 11/30/2024 Pneumococcal Vaccine: 50+ Years (3 of 3 - PCV20 or PCV21) 02/05/2026 02/05/2021, 06/03/2013, 10/25/2009 Colonoscopy 03/06/2028 12/16/2019 Colorectal Cancer Screening 03/06/2028 Lipid Panel 10/31/2029 10/31/2024, 03/08, 03/23/2024, Additional history exists DTaP/Tdap/Td Vaccines (5 - Td or Tdap) 11/15/2029 11/16/2019, 11/11/2019, 08/16/2016, Additional history exists Zoster Vaccines Completed 01/13/2020, 11/10/2019 Influenza Vaccine Completed 12/28/2024, , 12/11/2022, Additional history exists HIB Vaccines Aged Out [...] 025 10:17 AM EDT) No 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, pasta 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 Procedure Name Priority Date/Time Associated Diagnosis Comments CT CHEST WO CONTRAST Routine 02/01/2025 9:55 AM EDT Left-sided chest wall pain POCT GISSEL-14 URINE DRUG SCREEN Routine 12/28/2024 9:38 AM EDT Uncomplicated opioid dependence (CMS/HCC) LIPID PANEL, STANDARD Routine 10/31/2024 8:46 AM EDT Dyslipidemia PANORAMIC RADIOGRAPHIC IMAGE Routine 08/19/2022 1:00 PM EDT HM COLONOSCOPY Routine 12/16/2019 5:19 PM EDT PERIODIC ORAL EVALUATION - ESTABLISHED PATIENT Routine 06/13/2016 12:00 AM EST PROPHYLAXIS - ADULT Routine 09/21/2013 1 2:00 AM EDT INTRAORAL - COMPLETE SERIES OF RADIOGRAPHIC IMAGES Routine 05/28/2009 12:00 AM EST from Last 3 Months or Most Recently Relevant to Health Maintenance Results * CT Chest w/o Contrast (02/01/2025 9:55 AM EDT) Anatomical Region Laterality Modality Body, Chest Computed Tomogra phy 02/01/2025 9:55 AM EDT Narrative 02/01/2025 10:27 AM EDT [address] [address] [address] Scan Report Signed Patient: Shaggy German MR#: [id number] : 1955 Acct:[id number] Age/Sex: 69 / M ADM Date: 02/01/25 Loc: HO.CT Attending Dr: Jay Lawler NP Ordering Physician: JAY LAWLER NP Date of Service: 02/01/25 Procedure(s): CT chest wo IV con Accession Number(s): [id number] cc: Physician,Unknown ; JAY LAWLER NP Report Number: [id number]: Total DLP = 147.00 mGy-cm Reason for Exam: chronic L sided chest wall pain, XR negative EXAMINATION: CT CHEST WITHOUT CONTRAST CLINICAL INFORMATION: Chronic left-sided chest wall pain. COMPARISON: Correlated to x-ray dated July 09, 2024. TECHNIQUE: Multidetector volumetric CT imaging of the chest was done. Axial MIP volume rendering provided. Sagittal and coronal reformatted images were obtained. This CT examination was performed using dose optimization techniques as appropriate, variously including the following: *Automated exposure control *Adjustment of mA and/or kV according to patient size (this includes techniques or standardized protocols for targeted exams where dose is matched to indication/reason for exam; i.e. 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 Cardiomediastinal silhouette size is normal. Multilevel spondylosis. Upper extremities at the size of the head. LUNGS: No gross pulmonary nodules. No acute airspace disease. No honeycombing. No bronchiectasis. Bilateral apical lung scarring. Multiple noncalcified less than 3 mm nodules throughout the wall of the airways from the trachea to the subsegmental pulmonary branches. MEDIASTINUM: Subcentimeter lymph nodes, mediastinum. Heart is not enlarged. No pericardial effusion. No pneumomediastinum. No aneurysm, thoracic aorta. The thyroid gland is not enlarged with nodularity. CORONARY ARTERY CALCIFICATION: Subtle calcifications. PLEURA: No pneumothorax. No calcified pleural plaques. No pleural effusion. No hemothorax. AXILLA: Nonspecific prominent axillary lymph nodes. UPPER ABDOMEN: No gross hydronephrosis or nephrolithiasis. On this exam. Probable cholelithiasis. OSSEOUS STRUCTURES: Multilevel spondylosis without acute fracture or listhesis. Multiple syndesmophyte formation and marginal osteophyte formation with preservation of the intervertebral disc height in the mid thoracic spine involving multiple sequential vertebral bodies. No lytic or blastic lesions. Osteopenia versus osteoporosis. No acute rib fracture. 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 Probable cholelithiasis. DISH, mid thoracic spine. Fleischner guidelines were followed. Electronically signed by: Bryon uS MD 02/01/2025 10:25 AM EDT RP Dictated By: Bryon Colmenares MD Signed By: <Electronically signed by Bryon Cartwright MD in OV> 02/01/25 1025 DD/ 0955 TD/TT: 02/01/25 1014 Direct Service Worker: Procedure Note Donotuseinterpreter, Image - 02/01/[address] [place] [address] [address] Scan Report Signed Patient: Shaggy German MMR#: [id number] : 6Acct:[id number] Age/Sex: 69 / MADM Date: 02/01/25 Loc: HO.CT Attending Dr: Jay Lawler NP Ordering Physician: JAY LAWLER NP Date of Service: 02/01/25 Procedure(s): CT chest wo IV con Accession Number(s): [id number] cc: Physician,Unknown ; JAY LAWLER NP Report Number: [id number]: Total DLP = 147.00 mGy-cm Reason for Exam: chronic L sided chest wall pain, XR negative EXAMINATION: CT CHEST WITHOUT CONTRAST CLINICAL INFORMATION: Chronic left-sided chest wall pain. COMPARISON: Correlated to x-ray dated July 09, 2024. TECHNIQUE: Multidetector volumetric CT imaging of the chest was done. Axial MIP volume rendering provided. Sagittal and coronal reformatted images were obtained. This CT examination was performed using dose optimization techniques as appropriate, variously including the following: *Automated exposure control *Adjustment of mA and/or kV according to patient size (this includes techniques or standardized protocols for targeted exams where dose is matched to indication/reason for exam; i.e. 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 Cardiomediastinal silhouette size is normal. Multilevel spondylosis. Upper extremities at the size of the head. LUNGS: No gross pulmonary nodules. No acute airspace disease. No honeycombing. No bronchiectasis. Bilateral apical lung scarring. Multiple noncalcified less than 3 mm nodules throughout the wall of the airways from the trachea to the subsegmental pulmonary branches. MEDIASTINUM: Subcentimeter lymph nodes, mediastinum. Heart is not enlarged. No pericardial effusion. No pneumomediastinum. No aneurysm, thoracic aorta. The thyroid gland is not enlarged with nodularity. CORONARY ARTERY CALCIFICATION: Subtle calcifications. PLEURA: No pneumothorax. No calcified pleural plaques. No pleural effusion. No hemothorax. AXILLA: Nonspecific prominent axillary lymph nodes. UPPER ABDOMEN: No gross hydronephrosis or nephrolithiasis. On this exam. Probable cholelithiasis. OSSEOUS STRUCTURES: Multilevel spondylosis without acute fracture or listhesis. Multiple syndesmophyte formation and marginal osteophyte formation with preservation of the intervertebral disc height in the mid thoracic spine involving multiple sequential vertebral bodies. No lytic or blastic lesions. Osteopenia versus osteoporosis. No acute rib fracture. 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 Probable cholelithiasis. DISH, mid thoracic spine. Fleischner guidelines were followed. Electronically signed by: Bryon Su MD 02/01/2025 10:25 AM EDT Dictated By: Bryon Colmenares MD Signed By: <Electronically signed by Bryon Cartwright MDin OV> 02/01/25 1025 DD/ 0955 TD/TT: 02/01/25 1014 Direct Service Worker: [facility] CT PROCEDURES Final Result * (ABNORMAL) POCT GISSEL-14 Urine Drug Screen (12/28/2024 9:38 AM EDT) THC Negative Negative Cocaine Screen, Urine Negative Negative Opiate Screen, Urine Negative Negative Methamphetamine Screen Urine Negative Negative Amphetamine Screen, Urine Negative Negative Benzodiazepines Screen, Urine Negative Negative Barbiturate Screen, Urine Negative Negative Methadone Screen, Urine Negative Negative Buprenophine Screen, Urine Positive(A) Negative TCA, Urine Negative Negative MDMA Urine Negative Negative ng/mL Oxycodone Screen, Urine Negative Negative Phencyclidine (PCP), Urine Negative Negative Fentanyl, Urine Negative Negative Urine Urine specimen obtained by clean catch procedure / Unknown 12/28/2024 9:38 AM EDT Montse Quintanilla MD POINT OF CARE TEST ENTER/EDIT OR DERABLES Final Result * (ABNORMAL) Lipid Panel, Standard (10/31/2024 8:46 AM EDT) Triglycerides 142 <150 mg/dL [facility] Comment:Desirable Triglyceri de: less than 150 mg/dLBorderline High Triglyceride 150-199 mg/dLHigh Triglyceride: 200-499 mg/dLVery High Triglyceride: greater than or equal to 5OO mg/dL Cholesterol 237(H) <200 mg/dL [facility] Comment:Desirable Cholestero l: less than 200 mg/dLBorderline High Cholesterol: 200-239 mg/dLHigh Cholesterol: greater than 239 mg/dL LDL Cholesterol Calculated 176(H) <100 mg/dL [facility] Comment:Desirable LDL: less than 100 mg/dLNear Optimal/Above Optimal LDL: 110- 129 mg/dLBorderline High LDL: 130-159 mg/dLHigh LDL: 160-189 mg/dLVery High LDL: greater than or equal to 190 mg/dL HDL Cholesterol 33(L) >40 mg/dL [facility] Comment:Desirable HDL: great er than 40 mg/dL Note: This HDL assay may give artificially low results in patients with liver disease. Blood Venous blood specimen / Unknown 10/31/2024 8:46 AM EDT 10/31/2024 11:33 AM EDT Jay ANDERSON LAB BLOOD ORDERABLES Final Resul t [facility] [address] [place] [phone] * Hm Colonoscopy (12/16/2019 5:19 PM EDT) us Historical Provider MD HEALTH MAINTENANCE Final Result from Last 3 Months or Most Recently Relevant to Health Maintenance Insurance [facility] [employer] (HMO D-SNP) [employer] [id number] [place] [id number] [facility] [address] [place] [id number] Care Teams Brush Stainer Relationship Specialty Start Date End Date Jay Lawler ANP [address] [place] [address] PCP - General Family Medicine 08/23/19 Rodney Marrufo MD [address] [place] [address] Urology 11/11/24 Essie Larry MD [address] [place] [address] Gastroenterology 11/11/24
--- OUTSIDE RECORDS SUMMARY | 2025-02-01 11:51 | XMS_ITS | Encounter Summary ---
Author Organization [employer] Address [address] [place] [address] 7t [place] [address] Care Team Providers Care Rural Carrier Associate Name Role Phone Waleska Baeza JUSTIN Primary Care Provider [phone] Rodney Marrufo MD Unavailable [phone] Essie Larry MD Unavailable [phone] Reason for Visit * Reason Comments Med Refill Encounter Details Date Type Department Care Team (Late Contact Info) Description 12/26/2022 Refill [facility] [address] [place] [address] [phone] Alexandria Pablo, EMIR Tinea pedis of both [...] Department Care Team (Late Contact Info) Description 02/22/2025 9:30 AM EST Office Visit [facility] MED[facility]INE [address] [place], [place] [phone] Montse Quintanilla MD [address] [place], [place] [phone] 02/22/2025 3:00 PM EST Office Visit [facility] MED[facility] [address] [place] [address] Waleska Baeza ANP [address] [place] [address] documented as of this encounter Visit Diagnoses Diagnosis Tinea pedis of both feet documented in this encounter Additional Health Concerns Assessment Noted Time PHQ-9 Depression Total Score: 4 09/11/19 23 10:52 AM EDT documented as of this encounter Care Teams Rural Carrier Associate Relationship Specialty Start Date End Date Waleska Baeza ANP [address] [place] [address] PCP - General Family Medicine 08/23/19 Rodney Marrufo MD [address] [place] [address] Urology 11/11/24 Essie Larry MD [address] [facility] [place] [address] Gastroenterology 11/11/24 documented as of this encounter
--- OUTSIDE RECORDS SUMMARY | 2025-02-01 11:51 | XMS_ITS | Encounter Summary ---
Author Organization [employer] Address [address] [place] [address] 7t [place] [address] Care Team Providers Care Field Laboratory Operator Name Role Phone Waleska Baeza Primary Care Provider [phone] Rodney Marrufo MD Unavailable Essie Larry MD Unavailable [phone] Reason for Visit * Reason Comments Med Refill Encounter Details Date Type Department Care Team (Late st Contact Info) Description 11/15/2024 Refill [facility] [address] [place], [place] [phone] Waleska Baeza ANP [address] [place] [address] Depressive disorder; Insomnia, unspecified type Social History [...] Description 02/22/2025 9:30 AM EST Office Visit [facility] [address] [place] [address] Montse Quintanilla MD [address] [place] [address] 02/22/2025 3:00 PM EST Office Visit [address] [address] Waleska Baeza ANP [address] [place] [address] documented as of this encounter Goals Goal Patient Goal Type Associated Problems Recent Progress Patient-Stated? Author Increase coping skills to promote long-term recovery and improve ability to perform daily activities General On track( 025 10:17 AM EDT) No 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, RN documented as of this encounter Visit Diagnoses Diagnosis Depressive disorder Depressive disorder, not elsewhere classified Insomnia, unspecified type documented in this encounter Additional Health Concerns Assessment Noted Time PHQ-9 Depression Total Score: 3 04/21/19 25 1:02 PM EST documented as of this encounter Care Teams Field Laboratory Operator Relationship Specialty Start Date End Date Waleska Baeza ANP [address] [place] [address] PCP - General Family Medicine 08/23/19 Rodney Marrufo MD [address] [place] [address] Urology 11/11/24 Essie Larry MD [address] [place] [address] Gastroenterology 11/11/24 documented as of this encounter
--- OUTSIDE RECORDS SUMMARY | 2025-02-01 11:51 | XMS_ITS | Encounter Summary ---
Author Organization [employer] Address [address] [facility] 7t [place] [address] Care Team Providers Care Cutter Operator Asbestos Shingle Name Role Phone Aryan Waleska ANDERSON Primary Care Provider [phone] Rodney Marrufo MD Unavailable [phone] Essie Larry MD Unavailable [phone] Reason for Visit * Reason Comments [facility] Recovery Supports Encounter Details Date Type Department Care Team (Late st Contact Info) Description 01/27/2025 Patient Outreach [facility] MEDICINE [address] [place] [address] Sherman Malone Recovery Supports Social History Tobacco Use Types [...] as of this encounter Progress Notes * Sherman Malone - 01/27/2025 11:59 PM EDT I met with Shaggy ortiz. Setting: in person at [facility] Recovery Wellness Goals worked on: Social Stability Action taken/next steps: Attended alcohol and drug free activity Additional comments: Sherman Malone documented in this encounter Plan of Treatment Upcoming Encounters Date Type Department Care Team (Late st Contact Info) Description 02/22/2025 9:30 AM EST Office Visit [facility] MED[facility]INE [address] [place] [phone] Montse Quintanilla MD [address] [place] [address] 02/22/2025 3:00 PM EST Office Visit [facility] MED[facility] [address] [place] [address] Waleska Baeza ANP [address] [place] [address] documented as of this encounter Goals Goal [...] documented as of this encounter Care Teams Cutter Operator Asbestos Shingle Relationship Specialty Start Date End Date Waleska Baeaz ANP [address] [place] [address] PCP - General Family Medicine 08/23/19 Rodney Marrufo MD [address] [place] [address] Urology 11/11/24 Essie Larry MD [address] [place] [address] Gastroenterology 11/11/24 documented as of this encounter
== END 2025-02-01 09:52 | disposition home or self-care (01) ==
LOC: HO.CT 09:51
PROVIDERS: Visit Provider Nurse Practitioner Primary Care
DX: R07.89 Other chest pain (principal)
CPT/HCPCS: 71250

== ENCOUNTER → 2025-02-01 09:53 | Outpatient (BNV) | payer OTHER, SELFPAY | PROVIDERS: Visit Provider Radiology Diagnostic Radiology | DX: R07.89 Other chest pain (principal); M48.14 Ankylosing hyperostosis [Forestier], thoracic region | CPT/HCPCS: 71250 ==

== ENCOUNTER 2025-03-13 08:06 | Outpatient (AMB) | payer OTHER, SELFPAY ==
[2025-03-13 08:14] VITALS: BP 126/62; PULSE 63; O2SAT 98; BMI 26.5
--- NOTE | 2025-03-13 08:14 | MHC.OFFVIS ---
Vital Signs 03/13/25 08:14 Height 5 ft 8 in Weight 174 lb 2.643 oz BMI 26.5 BP 126/62 Blood Pressure Location Lt brachial Position Sitting Pulse 63 Pulse Source Pulse Oximeter Pulse Oximetry (%) 98 Oxygen Delivery Method Room Air Intake Visit Reasons: Abnormal CT scan Bicycle Repairer Required: Yes Bicycle Repairer Services: Bicycle Repairer Offered & Declined Bicycle Repairer Name: MD speak kosovan Accompanied by: Self / Same As Patient Allergies No Known Allergies Allergy (Verified 03/13/25 08:17) HPI Comments Details: The patient is here for pulmonary evaluation. The patient is a 69-year-old gentleman with a normal CT scan of the chest. The patient is a smoker. He is down to 3 cigarettes a day. He has a history of liver cirrhosis hepatitis-C was 3 4. The patient states that back in the fall he started having some chest discomfort. Has a chest x-ray that was inconclusive. Therefore he was sent for CT scan of the chest. The CAT scan was on January 2025. I did personally reviewed. The patient does have some evidence of tracheal lesions suggesting of chondroma. 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 I explained to the patient this condition. In addition to that he had underlying subcentimeter pulmonary nodules bilaterally. The patient continues to smoke about 3-6 cigarettes a day. He is already cutting down. The patient is motivated to quitting. He is going to try to quit cold turkey. Otherwise he can also try nicotine supplementation. He does have some at home if he needs use it. As far as his respiratory status denies any significant coughing. Does have some shortness of breath with activity. Will plan to do pulmonary function studies in 6 months and also repeat the CAT scan done to assess did tracheal lesions a little further. Therefore, follow up in 6 months if any issues arise she can always call further recommendations. [facility] Medical History (Updated 03/13/25 @ 08:51 by Pedro Renner MD) Tobacco dependence Tracheobronchial lesion Pulmonary nodules Rib pain on left side Chronic hepatitis C virus genotype 1a infection Cirrhosis of liver without ascites History of adenomatous polyp of colon Combined drug dependence excluding opioids Chronic constipation Seizures Anxiety Depression Surgical History History of pterygium excision History of prostate surgery Hx of cystoscopy Hx of endoscopy History of colonoscopy History of hernia repair Family History Father No problems noted. Mother No problems noted. 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 Review of Systems Const Denies weight loss Eyes Reports no additional complaints ENT Denies hoarseness and Denies nasal congestion Card Denies chest pain and Reports dyspnea on exertion Resp Reports dyspnea on exertion and Denies wheezing GI Denies abdominal pain Musc Reports no additional complaints Skin/Breast Denies rash Neuro Reports no additional complaints Karthik/Lymph Reports no additional complaints Aller/Immun Denies wheezing Physical Exam Vital Signs: Last Vital Signs Pulse 63 03/13/25 08:14 BP 126/62 03/13/25 08:14 Pulse Ox 98 03/13/25 08:14 Oxygen Delivery Method Room Air 03/13/25 08:14 BMI result Body Mass Index 26.5 Const General: comfortable HEENT Head: Yes normocephalic Neck Neck: Yes supple Chest Chest palpation & inspection: normal inspection of the chest Resp Effort & Inspection: normal respiratory effort Auscultation: clear to auscultation bilaterally Cardio Heart sounds: S1 normal heart sound present and S2 normal heart sound present GI Palpation (GI): Soft to palpation Skin General skin exam: no rashes or lesions noted Assessment & Plan Assessment & Plan (1) Pulmonary nodules: Code(s): R91.8 - Other nonspecific abnormal finding of lung field Category: Medical (2) Tracheobronchial lesion: Code(s): J98.09 - Other diseases of bronchus, not elsewhere classified Category: Medical (3) Tobacco dependence: Code(s): F17.200 - Nicotine dependence, unspecified, uncomplicated Category: Medical Plan Tobacco cessation CT chest 6 months PFTs in 6 months F/U 6-8 months Orders: Orders CT chest wo IV con 6 Months R91.8 - Other nonspecific abnormal finding of lung field PFT pulmonary function test 6 Months R91.8 - Other nonspecific abnormal finding of lung field Coding Level of Care Code New Pt Level 4 (76357) Diagnoses Pulmonary nodules R91.8 Tracheobronchial lesion J98.09 Tobacco dependence F17.200 Time Spent (min) 35
== END 2025-03-13 08:42 | disposition home or self-care (01) ==
LOC: HO.HPS 08:07
PROVIDERS: PCP Nurse Practitioner Primary Care; Referring Provider Nurse Practitioner Primary Care; Visit Provider Hospitalist
DX: R91.8 Other nonspecific abnormal finding of lung field (principal); J98.09 Other diseases of bronchus, not elsewhere classified; F17.200 Nicotine dependence, unspecified, uncomplicated
CPT/HCPCS: 99204

== ENCOUNTER → 2025-03-13 08:06 | Outpatient (BNVA) | payer OTHER, SELFPAY | PROVIDERS: PCP Nurse Practitioner Primary Care; Referring Provider Nurse Practitioner Primary Care; Visit Provider Hospitalist | DX: J98.09 Other diseases of bronchus, not elsewhere classified (principal); F17.210 Nicotine dependence, cigarettes, uncomplicated; R91.8 Other nonspecific abnormal finding of lung field | CPT/HCPCS: 99202 ==